=== PATIENT | male | born 1950 | race Caucasian/White ===

== ENCOUNTER 2018-03-05 01:00 | Inpatient (IN) ==
[2018-03-05 01:51] LABS: Basophils # 0.1 K/mm3 (0-0.2); Basophils % 1.1 % (0.1-2.0); Eosinophils # 0.1 K/mm3 (0.0-0.4); Eosinophils % 1.7 % (0.1-12.0); Hematocrit 51.8 % (42.0-52.0); Lymphocytes # 0.9 K/mm3 (0.7-4.5); Lymphocytes % 11.8 K/mm3 (10-50); Mean Corpuscular HGB Conc 32.9 g/dL (31.8-35.4); Mean Corpuscular Hemoglobin 31.3 pg (27.0-31.2); Mean Corpuscular Volume 95.1 fl (80-94); Mean Platelet Volume 10.7 fl (7.4-10.4); Monocytes # 0.7 K/mm3 (0.1-1.0); Neutrophils # 5.6 K/mm3 (1.8-7.8); Neutrophils % 76.5 % (37.0-80.0); Platelet Count 194 K/mm3 (142-424); Red Blood Count 5.44 M/mm3 (4.60-6.20); Red Cell Distribution Width 13.2 % (11.5-17.5); White Blood Count 7.3 K/mm3 (4.8-10.8)
[2018-03-05 02:50] LABS: Albumin Level 3.6 gm/dL (3.4-5.0); Albumin/Globulin Ratio 0.9 (1.1-1.8); Anion Gap 13.9 mEq/L (5-15); Bilirubin,Total 0.4 mg/dL (0.2-1.0); Calcium 9.2 mg/dL (8.5-10.1); Globulin 3.8 gm/dl (1.3-3.2); Potassium 3.9 mmoL/L (3.5-5.1); Total Protein,Serum 7.4 gm/dL (6.4-8.2)
--- NOTE | 2018-03-05 03:49 | Emergency Department Note ---
ED Disposition Clinical Impression: Acute exacerbation of chronic obstructive airways disease, Elevated troponin Community acquired pneumonia Qualifiers: Laterality: right Lung location: unspecified part of lung Qualified Code(s): J18.9 - Pneumonia, unspecified organism Disposition: Admitted As Inpatient Condition on Discharge: Good - Critical Care Critical Care Time: No Attestation: On 03/05/18, the high probability of a clinically significant, sudden or life threatening deterioration of the following system(s) required my full and direct attention, intervention and personal management. The time I documented below is in addition to time spent performing reported procedures but includes the following listed in this critical care notation. Medical Decision Making - Medical Records Medical records reviewed: Yes: I reviewed the patient's medical records. - Gigi Inquiry Pt receiving controlled substance: No Vital Signs: 03/05/18 01:06 03/05/18 02:16 Temperature 99.2 F Temperature Source Oral Pulse Rate [Right Radial] 115 H 115 H Respiratory Rate 20 24 Blood Pressure [Right Arm] 179/95 152/90 Blood Pressure Mean [Right Arm] 123 110 Blood Pressure Source [Right Arm] Manual Cuff/ Palpation Automatic Cuff Blood Pressure Position [Right Arm] Supine Sitting 02 Sat by Pulse Oximetry 89 L 91 L Oxygen Delivery Method Room Air Nasal Cannula Oxygen Flow Rate (LPM) 2 - Lab Data Lab results reviewed: Yes: I reviewed the patient's lab results. Lab Results 03/05/18 01:28: WBC 7.3, RBC 5.44, Hgb 17.0, Hct 51.8, MCV 95.1 H, MCH 31.3 H, MCHC 32.9, RDW 13.2, Plt Count 194, MPV 10.7 H, Neut % (Auto) 76.5, Lymph % ( Auto) 11.8, [place] % (Auto) 9.0, Eos % (Auto) 1.7, Baso % (Auto) 1.1, Neut # (Auto ) 5.6, Lymph # (Auto) 0.9, [place] # (Auto) 0.7, Eos # (Auto) 0.1, Baso # (Auto) 0.1 03/05/18 01:28: Sodium 135 L, Potassium 3.9, Chloride 100, Carbon Dioxide 25, Anion Gap 13.9, BUN 12, Creatinine 0.99, Estimated Creat Clear 92, Estimated GFR 75, Est GFR ( Amer) 91, Glucose 202 H, Calcium 9.2, Total Bilirubin 0.4, AST 17, ALT 27, Alkaline Phosphatase 91, Total Creatine Kinase 257, CK-MB ( CK-2) 3.2, CK-MB (CK-2) Rel Index 1.2, Troponin I 0.15 H, Total Protein 7.4, Albumin 3.6, Globulin 3.8 H, Albumin/Globulin Ratio 0.9 L, Amylase 36, Lipase 137 03/05/18 01:28: Lactic Acid 1.2 03/05/18 01:28: Influenza Type A Ag Negative, Influenza Type B Ag Negative Result diagrams: 03/05/18 01:28 03/05/18 01:28 Orders (Tests/Meds): ED MEDICATIONS Generic Name Dose Route Start Last Admin Trade Name Freq PRN Reason Stop Dose Admin Nitroglycerin 0.4 mg 03/05/18 01:43 03/05/18 01:44 Nitrostat 0.4mg Sl Tablet SL 04/04/18 01:42 0.4 mg [id number] PRN Administration Chest Pain Discontinued Medications Generic Name Dose Route Start Last Admin Trade Name Freq PRN Reason Stop Dose Admin Albuterol/Ipratropium 3 ml 03/05/18 01:17 03/05/18 01:32 Duoneb 3ml Neb IH 03/05/18 01:18 3 ml ONCE ONE Administration Aspirin 324 mg 03/05/18 01:43 03/05/18 01:44 Aspirin 81mg Chewable Tablet PO 03/05/18 01:44 324 mg ONCE ONE Administration Methylprednisolone Sodium Succinate 125 mg 03/05/18 01:17 03/05/18 01:32 Solu-Medrol 125mg/2ml Vial IV 03/05/18 01:18 125 mg ONCE ONE Administration ORDERS Category Date Time Status XR chest portable Stat Exams 03/05/18 01:17 Taken BNP [B-Type Natriuretic Peptide] Stat Lab 03/05/18 03:28 Ordered Blood Culture Stat Micro 03/05/18 01:28 Received Sputum Culture & Gram Stain Stat Micro 03/05/18 01:35 Ordered - Radiology Data #1 Image(s): Chest Image Reviewed: Yes I reviewed the patient's radiology image Preliminary Findings: Abnormal - ECG Data Tracing #1 I reviewed this ECG and interpreted as documented below: Normal Sinus Rhythm: Yes Ischemic changes: non-specific ST-T wave changes - Physician Consults Physician Consulted: salvatore Reason -: Admission Resp/SOB HPI - General Chief Complaint: Shortness of Breath/Dyspnea Stated Complaint: difficulty breathing,cough Time Seen by Provider: 03/05/18 03:32 Mode of Arrival: Ambulatory Source of Information: Patient, Relative, Medical Record Limitations: No Limitations Description of Symptoms (Recalled from ER Triage Doc. by RN): reports 2 days of cough and difficulty breathing, took 2 benadryl prior to comming - History of Present Illness pt with sob with prod cough and congestion with tob use and has hx of cad, s/p cabg MD Complaint: shortness of breath, cough Onset (ago): hour(s) Context: recent illness Severity: moderate Consistency/Duration: intermittent Relieving factors: oxygen Known history of: COPD, diabetes - Related Data Home oxygen amount: none Home Medications Medication Instructions Recorded Confirmed Doxazosin Mesylate [Doxazosin 2mg 2 mg PO DAILY 03/05/18 03/05/18 Tab] Glimepiride [Amaryl] 6 mg PO DAILY 03/05/18 03/05/18 Ipratropium/Albuterol Sulfate 3 ml IH NEEDED PRN 03/05/18 03/05/18 [Duoneb 3mL neb] Lisinopril [Lisinopril 40mg Tablet] 40 mg PO DAILY 03/05/18 03/05/18 Metoprolol Tartrate [Lopressor 25 mg PO BID 03/05/18 03/05/18 25mg tablet] Pravastatin Sodium [Pravachol 40mg 40 mg PO DAILY 03/05/18 03/05/18 Tablet] Allergies Allergy/AdvReac Type Severity Reaction Status Date / Time No Known Allergies Allergy Unverified 11/04/17 15:31 [facility] History I have reviewed the patient's past medical history: Yes Medical History: Reports:: Diabetes Mellitus Type 2 Denies:: Cancer, Diabetes Mellitus Type 1, MRSA Amputation: No Fractures: No - Social History Smoking Status: Current every day smoker Alcohol Intake: current Alcohol Intake Frequency:: a few times a month - Psychiatric History Expresses thoughts of harming self/others: None Suicide Plan Description: No Plan ROS Obtained: Yes All systems reviewed & no additional complaints - Constitutional Constitutional: Denies fever(s) - Eyes Eyes: Denies change in vision - ENT Ears, Nose, Mouth, and Throat: Denies sore throat - Cardiovascular Cardiovascular: Denies chest pain at rest - Respiratory Respiratory: Yes cough, Yes dyspnea - Gastrointestinal Gastrointestingal: Denies: abdominal pain - Genitourinary Female Genitourinary: Denies flank pain - Musculoskeletal Musculoskeletal: Denies joint pain, Denies joint swelling - Integumentary/Breasts Skin/Breast: Denies rash - Neurologic Neurologic: Denies seizure-like activity Physical Exam - General General appearance: in no apparent distress - Head Head exam: normocephalic - Eye Eye exam: Present: PERRL, EOMI - ENT ENT exam: Present: mucous membranes dry - Neck Neck exam: Present: trachea midline - Respiratory Respiratory exam: Present: other (bronchial ). Absent: respiratory distress - Cardiovascular Cardiovascular exam: Present: regular rate, systolic murmur, +S4 - Abdominal Exam Abdominal exam: Present: soft - Extremities Exam Extremities exam: Absent: calf tenderness - Neurological Exam Neurological exam: Present: alert, oriented X3, CN II-XII intact - Psychiatric Psychiatric exam: Present: normal affect - Skin Skin exam: Absent: rash
[2018-03-05 06:36] LABS: Chol/HDL Ratio 4.6 (1-3.5)
--- NOTE | 2018-03-05 07:53 | Pharmacy Consult Notes ---
[facility] Pharmacy VTE Monitoring - Patient Demographics Admission date: 03/05/18 Report Date: 03/05/18 Time: 07:53 Allergies/Adverse Reactions: Patient Allergies No Known Allergies Allergy (Unverified 11/04/17 15:31) Height: 1.52 m Weight: 90.718 kg Patient Problems: Current Active Problems Community acquired pneumonia (Acute) Acute exacerbation of chronic obstructive airways disease (Acute) Elevated troponin (Acute) - VTE Risk Labs: VTE Related Lab Results Hgb 17.0 g/dL (14.1-18.0) 03/05/18 01:28 Hct 51.8 % (42.0-52.0) 03/05/18 01:28 Plt Count 194 K/mm3 (142-424) 03/05/18 01:28 BUN 12 mg/dL (7-18) 03/05/18 01:28 Creatinine 0.99 mg/dL (0.70-1.30) 03/05/18 01:28 Estimated Creat Clear 92 mL/min (0-300) 03/05/18 01:28 VTE Score: 6 VTE Risk Level: Moderate Risk - Prophylaxis VTE Prophylaxis Ordered?: Yes Types of VTE Prophylaxis: TEDS Knee High Location of Applied Device: Bilateral Lower Extremeties - VTE Diagnosis Confirmed Treatment or plan recommended: Continue Current Treatment
--- NOTE | 2018-03-05 08:29 | History & Physical Report ---
*Admission Date: 03/05/18 <Silvana Meredith 03/05/18 08:43> *Chief complaint: SOA, cough <Silvana Meredith 03/05/18 08:43> *History of present illness: Mr. Umaña is a 67-year-old male with a history of hypertension, hyperlipidemia, ASCVD, diabetes, and COPD. He states approximately 2 days ago he began getting short of breath. He has had a productive cough as well as a sore throat and nasal congestion. He states yesterday he became so short of air he presented to the emergency room. He was evaluated and found to have a right-sided pneumonia. He was admitted for antibiotic treatment. His troponin has been elevated as well. He denies any chest pain. <Silvana Meredith 03/05/18 08:43> [facility] History Medical History: Reports:: BPH, Chronic Obstructive Pulmonary Disease (COPD), Coronary Artery Disease, Diabetes Mellitus Type 2, Hyperlipidemia, Hypertension , Myocardial Infarction Denies:: Cancer, Diabetes Mellitus Type 1, Internal Pacemaker, MRSA <Silvana Meredith 03/05/18 08:43> Other Surgeries: Yes: CABG (2005). No: Pacemaker <Silvana Meredith 03/05/18 08 :43> Amputation: No <Silvana Meredith 03/05/18 08:43> Fractures: No <Silvana Meredith 03/05/18 08:43> - *Social History Educational Level: Completed GED/General Educational Development <Silvana Meredith 03/05/18 08:43> Smoking Status: Current every day smoker <Silvana Meredith 03/05/18 08:43> Tobacco Type: cigarettes <Silvana Meredith 03/05/18 08:43> # Packs/Day (cigarettes): 1 <Silvana Meredith 03/05/18 08:43> #Yrs smoked (if former smoker): 56 <Silvana Meredith 03/05/18 08:43> Alcohol Intake: never <Silvana Meredith 03/05/18 08:43> Alcohol Intake Frequency:: a few times a month <Silvana Meredith 03/05/18 08:43 > Occupational Status: retired <Silvana Meredith - 04/19/18 08:43> Housing: house <ViriSilvana Nicolás 03/05/18 08:43> Household Members: spouse <SaelittleSilvana 03/05/18 08:43> - Psychiatric History Expresses thoughts of harming self/others: None <Silvana Meredith 03/05/18 08: 43> Suicide Plan Description: No Plan <Silvana Meredith 03/05/18 08:43> *Family Hx:: Cancer, Coronary Artery Disease, Diabetes, Heart Attack, Hyperlipidemia, Hypertension <Silvana Meredith 03/05/18 08:43> Review of Systems - Constitutional Reports weakness, Denies fever(s) <Silvana Meredith 03/05/18 08:43> - Eyes Denies blurry vision, Denies double vision <Silvana Meredith 03/05/18 08:43> - ENT Reports nasal congestion, Reports sore throat <Silvana Meredith 03/05/18 08:43> - *Cardiovascular Reports fast heart rate, Denies chest pain <Silvana Meredith 03/05/18 08:43> - *Respiratory Reports chest congestion, Reports cough, Reports shortness of breath <Silvana Meredith 03/05/18 08:43> - *Gastrointestinal Denies abdominal pain, Denies loose stools, Denies nausea, Denies vomiting < Silvana Meredith 03/05/18 08:43> - *Genitourinary Denies difficulty urinating, Denies painful urination <Silvana Meredith 08:43> - *Musculoskeletal Denies joint pain <Silvana Meredith 03/05/18 08:43> - *Neurologic Denies headache(s), Denies seizure-like activity, Denies dizziness <Silvana Meredith 03/05/18 08:43> Meds Home Medications Medication Instructions Recorded Confirmed Type Aspirin [Aspir-Low] 81 mg PO DAILY 03/05/18 03/05/18 History Doxazosin Mesylate [Doxazosin 2mg 2 mg PO DAILY 03/05/18 03/05/18 History Tab] Glimepiride [Amaryl] 6 mg PO DAILY 03/05/18 03/05/18 History Ipratropium/Albuterol Sulfate 3 ml IH NEEDED PRN 03/05/18 03/05/18 History [Duoneb 3mL neb] Lisinopril [Lisinopril 40mg Tablet] 40 mg PO DAILY 03/05/18 03/05/18 History Metoprolol Tartrate [Lopressor 25 mg PO BID 03/05/18 03/05/18 History 25mg tablet] Niacin 1,000 mg PO HS 03/05/18 03/05/18 History Pravastatin Sodium [Pravachol 40mg 40 mg PO DAILY 03/05/18 03/05/18 History Tablet] <Good Garcia - 03/05/18 09:09> Allergies Allergy/AdvReac Type Severity Reaction Status Date / Time No Known Allergies Allergy Unverified 11/04/17 15:31 <Good Garcia - 03/05/18 09:09> Exam Vital signs and Labs for Last 24 Hours: Temp Pulse Resp BP Pulse Ox 97.8 F 106 H 24 166/94 91 L 03/05/18 08:00 03/05/18 08:06 03/05/18 08:00 03/05/18 08:00 03/05/18 08:06 Laboratory Results - last 24 hr 03/05/18 05:25: POC Glucose 299 H 03/05/18 06:12: Troponin I 0.15 H 03/05/18 06:12: Magnesium 1.9, Triglycerides 65, Cholesterol 142, LDL Cholesterol 98, VLDL Cholesterol 13, HDL Cholesterol 31, Cholesterol/HDL Ratio 4.6 H <Good Garcia - 03/05/18 09:09> Temp Pulse Resp BP Pulse Ox 97.8 F 106 H 24 166/94 91 L 03/05/18 08:00 03/05/18 08:06 03/05/18 08:00 03/05/18 08:00 03/05/18 08:06 Laboratory Results - last 24 hr Lab Results 03/05/18 01:28: WBC 7.3, RBC 5.44, Hgb 17.0, Hct 51.8, MCV 95.1 H, MCH 31.3 H, MCHC 32.9, RDW 13.2, Plt Count 194, MPV 10.7 H, Neut % (Auto) 76.5, Lymph % ( Auto) 11.8, [place] % (Auto) 9.0, Eos % (Auto) 1.7, Baso % (Auto) 1.1, Neut # (Auto ) 5.6, Lymph # (Auto) 0.9, [place] # (Auto) 0.7, Eos # (Auto) 0.1, Baso # (Auto) 0.1 03/05/18 01:28: Sodium 135 L, Potassium 3.9, Chloride 100, Carbon Dioxide 25, Anion Gap 13.9, BUN 12, Creatinine 0.99, Estimated Creat Clear 92, Estimated GFR 75, Est GFR ( Amer) 91, Glucose 202 H, Calcium 9.2, Total Bilirubin 0.4, AST 17, ALT 27, Alkaline Phosphatase 91, Total Creatine Kinase 257, CK-MB ( CK-2) 3.2, CK-MB (CK-2) Rel Index 1.2, Troponin I 0.15 H, Total Protein 7.4, Albumin 3.6, Globulin 3.8 H, Albumin/Globulin Ratio 0.9 L, Amylase 36, Lipase 137 03/05/18 01:28: Lactic Acid 1.2 03/05/18 01:28: Influenza Type A Ag Negative, Influenza Type B Ag Negative 03/05/18 01:28: B-Natriuretic Peptide 55 03/05/18 04:05: Troponin I 0.15 H 03/05/18 05:25: POC Glucose 299 H 03/05/18 06:12: Troponin I 0.15 H 03/05/18 06:12: Magnesium 1.9, Triglycerides 65, Cholesterol 142, LDL Cholesterol 98, VLDL Cholesterol 13, HDL Cholesterol 31, Cholesterol/HDL Ratio 4.6 H Microbiology Results 03/05/18 03:35 Sputum - Expectorated Sputum Gram Stain - Final 03/05/18 03:35 Sputum - Expectorated Sputum Sputum Culture - Pending 03/05/18 01:28 Blood Blood Culture - Pending 03/05/18 01:28 Blood Blood Culture - Pending <Silvana Meredith - 03/05/18 08:43> I & O for Last 24 hours: Intake & Output 03/02/18 03/03/18 03/04/18 03/05/18 11:59 11:59 11:59 11:59 Weight 200 lb <Good Garcia - 03/05/18 09:09> Intake & Output 04/03/03/18 03/04/18 03/05/18 11:59 11:59 11:59 11:59 Weight 200 lb <Silvana Meredith 03/05/18 08:43> - Constitutional Comments: Does not appear to feel well <Silvana Meredith 03/05/18 08:43> - *Routine HEENT Exam Head: Present: normocephalic, atraumatic <Silvana Meredith 03/05/18 08:43> Eye: Present: EOMI, PERRL <Silvana Meredith 03/05/18 08:43> ENT: Present: mucous membranes dry <Silvana Meredith 03/05/18 08:43> - *Routine Neck Exam Present: supple, full ROM <Silvana Meredith 03/05/18 08:43> - *Routine Respiratory Exam Present: decreased breath sounds, wheezes (bilateral). Absent: crackles < Silvana Meredith 03/05/18 08:43> - *Routine Cardiovascular Exam Present: RRR, tachycardia <Silvana Meredith 03/05/18 08:43> - *Routine Abdominal Exam Present: soft, normoactive bowel sounds. Absent: tenderness <Silvana Meredith 03/05/18 08:43> - *Routine Extremities Exam Absent: edema <Silvana Meredith 03/05/18 08:43> - *Routine Skin Exam Present: intact <ViriSilvana 03/05/18 08:43> - *Routine Neurological Exam Present: alert, oriented X3 <Silvana Meredith 03/05/18 08:43> H&P: Result - Labs Labs: Cardiac Enzymes 03/05/18 Range/Units 06:12 Troponin I 0.15 H (0.00-0.06) ng/ml <Good Garcia 03/05/18 09:09> <Silvana Meredith 03/05/18 08:43> - Impressions CXR - Pneumonia in the right perihilar region with persistent pneumonia and/or postinflammatory change in the right lower lobe. <Silvana Meredith 03/05/18 08:43> Assessment and Plan (1) Community acquired pneumonia Current visit: Yes Status: Acute Qualifiers: Laterality: right Lung location: unspecified part of lung Qualified Code( s): J18.9 - Pneumonia, unspecified organism Category: Medical Code(s): J18.9 - Pneumonia, unspecified organism (2) Elevated troponin Current visit: Yes Status: Acute Category: Medical Code(s): R74.8 - Abnormal levels of other serum enzymes (3) ASCVD (arteriosclerotic cardiovascular disease) Current visit: Yes Status: Chronic Category: Medical Code(s): I25.10 - Atherosclerotic heart disease of [place] coronary artery without angina pectoris (4) Hypertension Current visit: Yes Status: Chronic Category: Medical Code(s): I10 - Essential (primary) hypertension (5) Hyperlipidemia Current visit: Yes Status: Chronic Category: Medical Code(s): E78.5 - Hyperlipidemia, unspecified (6) COPD (chronic obstructive pulmonary disease) Current visit: Yes Status: Chronic Category: Medical Code(s): J44.9 - Chronic obstructive pulmonary disease, unspecified (7) Type 2 diabetes mellitus Current visit: Yes Status: Chronic Category: Medical Code(s): E11.9 - Type 2 diabetes mellitus without complications <Good Garcia - 03/05/18 09:09> (1) Community acquired pneumonia Current visit: Yes Status: Acute Qualifiers: Laterality: right Lung location: unspecified part of lung Qualified Code( s): J18.9 - Pneumonia, unspecified organism Category: Medical Code(s): J18.9 - Pneumonia, unspecified organism (2) Elevated troponin Current visit: Yes Status: Acute Category: Medical Code(s): R74.8 - Abnormal levels of other serum enzymes (3) ASCVD (arteriosclerotic cardiovascular disease) Current visit: Yes Status: Chronic Category: Medical Code(s): I25.10 - Atherosclerotic heart disease of [place] coronary artery without angina pectoris (4) Hypertension Current visit: Yes Status: Chronic Category: Medical Code(s): I10 - Essential (primary) hypertension (5) Hyperlipidemia Current visit: Yes Status: Chronic Category: Medical Code(s): E78.5 - Hyperlipidemia, unspecified (6) COPD (chronic obstructive pulmonary disease) Current visit: Yes Status: Chronic Category: Medical Code(s): J44.9 - Chronic obstructive pulmonary disease, unspecified (7) Type 2 diabetes mellitus Current visit: Yes Status: Chronic Category: Medical Code(s): E11.9 - Type 2 diabetes mellitus without complications <Silvana Meredith - 03/05/18 08:26> - Assessment and plan all Dx Assessment and Plan for all problems:: Saw patient, agree with above note. Will review echo before consulting cardiology. <Good Garcia - 03/05/18 09:09> Patient has been started on IV antibiotics, duo nebs, and steroids. Cardiology has been consulted for his elevated troponin. Will get an echo today. <Silvana Meredith - 03/05/18 08:43>
--- NOTE | 2018-03-05 10:40 | Cardiology Report ---
[place] echo doppler complete PROCEDURE: INDICATIONS FOR THE TEST: Chest pain COPD+ Heart Murmur Tobacco Smoking+ Palpitations Fatigue Syncope Edema Hypertension Diabetes Mellitus+ Rheumatic Fever SOB+BLAIR Obesity Hyperlipidemia Family History HD Additional History CABG, CAD PATIENT INFORMATION HEIGHT: 63 WEIGHT:206 GENDER: Male B/P:152/90 2-D/M-MODE INTERPRETATION: 2-D MEASUREMENTS OBSERVED VALUES IN CMS Right Ventricular Dimension (RVDd) 2.9 Interventricular Septum (Thickness)(IVsd) 1.6 Left Ventricular Internal Dimensions(LVIDd) 4.7 Left Ventricular Posterior Wall (Thickness)(LVPWd) 1.2 Aortic Root 3.3 Aortic Cusp Separation 1.9 Left Atrial Dimensions (LAD) 3.9 2D 1. Left atrium is mildly enlarged, left ventricle is normal size, there is mild concentric left ventricular hypertrophy, visually estimated ejection fraction 50% with no obvious regional wall motion abnormality, endocardial surfaces are poorly visualized. 2. The right atrium and right ventricle are mildly enlarged with normal contractility. 3. The aortic valve is minimally thickened and fibrosed, leaflet continue to display mobility. 4. The mitral and tricuspid valve are grossly normal. 5. The pulmonic valve is poorly visualized. 6. No significant pericardial effusion noted. DOPPLER INTERROGATION: Doppler interrogation of the aortic, mitral and tricuspid valvular presence of trace aortic, mild mitral and tricuspid regurgitation, calculated right ventricular systolic pressure is approximately 51 mmHg consistent with moderate pulmonary hypertension. Diastolic parameters are inconclusive. CONCLUSION: 1. Mildly enlarged left atrium, normal left ventricular size, mild concentric left ventricular hypertrophy, visually estimated ejection fraction 50% with no obvious regional wall motion abnormality, endocardial surfaces are poorly visualized due to poor acoustic windows. 2. Mildly enlarged right atrium and right ventricle, contractility of the right ventricle is normal. 3. Trace aortic, mild mitral and tricuspid regurgitation, calculated right ventricular systolic pressure is 51 mmHg consistent with moderate pulmonary hypertension. 4. No significant pericardial effusion noted.
[2018-03-06 06:40] LABS: Basophils % 0.1 % (0.1-2.0); Eosinophils % 0.4 % (0.1-12.0); Hematocrit 51.7 % (42.0-52.0); Hemoglobin 16.5 g/dL (14.1-18.0); Lymphocytes # 0.7 K/mm3 (0.7-4.5); Lymphocytes % 6.8 K/mm3 (10-50); Mean Corpuscular HGB Conc 31.8 g/dL (31.8-35.4); Mean Corpuscular Hemoglobin 31.1 pg (27.0-31.2); Mean Corpuscular Volume 97.5 fl (80-94); Mean Platelet Volume 8.8 fl (7.4-10.4); Monocytes # 0.5 K/mm3 (0.1-1.0); Monocytes % 4.4 % (1.7-9.3); Neutrophils # 9.6 K/mm3 (1.8-7.8); Neutrophils % 88.3 % (37.0-80.0); Platelet Count 182 K/mm3 (142-424); Red Cell Distribution Width 13.1 % (11.5-17.5); White Blood Count 10.8 K/mm3 (4.8-10.8)
[2018-03-06 06:57] LABS: Anion Gap 14.4 mEq/L (5-15); Potassium 4.4 mmoL/L (3.5-5.1)
--- NOTE | 2018-03-06 08:28 | Progress Note ---
Internal Medicine - PN: Subj *Date: 03/06/18 *Time: 08:25 Interval history: Patient states he is feeling quite a bit better today. He is able to sit up and eat breakfast. States he is still short of breath and coughing. He denies any pain today. Exam Vital signs and Labs for Last 24 Hours: Temp Pulse Resp BP Pulse Ox 97.5 F L 97 H 18 157/85 91 L 03/06/18 05:18 03/06/18 06:24 03/06/18 05:18 03/06/18 05:18 03/06/18 05:55 Laboratory Results - last 24 hr 03/05/18 11:13: POC Glucose 337 H* 03/05/18 15:49: POC Glucose 283 H 03/05/18 21:30: POC Glucose 348 H* 03/06/18 06:11: POC Glucose 267 H 03/06/18 06:20: WBC 10.8 D, RBC 5.30, Hgb 16.5, Hct 51.7, MCV 97.5 H, MCH 31.1 , MCHC 31.8, RDW 13.1, Plt Count 182, MPV 8.8, Neut % (Auto) 88.3 H, Lymph % ( Auto) 6.8 L, [place] % (Auto) 4.4, Eos % (Auto) 0.4, Baso % (Auto) 0.1, Neut # ( Auto) 9.6 H, Lymph # (Auto) 0.7, [place] # (Auto) 0.5, Eos # (Auto) 0.0, Baso # ( Auto) 0.0 03/06/18 06:20: Sodium 139, Potassium 4.4, Chloride 102, Carbon Dioxide 27, Anion Gap 14.4, BUN 23 H D, Creatinine 0.93, Estimated Creat Clear 89, Estimated GFR 81, Est GFR ( Amer) 97, Glucose 283 H I & O for Last 24 hours: Intake & Output 03/03/18 03/04/18 03/05/18 03/06/18 11:59 11:59 11:59 11:59 Intake Total 2093 / 4 Output Total 400 / 400 1000 / 1000 Balance -400 / -400 1094 / 1094 Weight 200 lb 198 lb Radiology Reports for the Last 24 Hours: Echo 1. Mildly enlarged left atrium, normal left ventricular size, mild concentric left ventricular hypertrophy, visually estimated ejection fraction 50% with no obvious regional wall motion abnormality, endocardial surfaces are poorly visualized due to poor acoustic windows. 2. Mildly enlarged right atrium and right ventricle, contractility of the right ventricle is normal. 3. Trace aortic, mild mitral and tricuspid regurgitation, calculated right ventricular systolic pressure is 51 mmHg consistent with moderate pulmonary hypertension. 4. No significant pericardial effusion noted. - Constitutional no acute distress (looks better and much more alert) - *Routine Respiratory Exam Present: wheezes (bilaterally - improved) - *Routine Cardiovascular Exam Present: RRR - *Routine Abdominal Exam Present: soft, normoactive bowel sounds. Absent: tenderness - *Routine Extremities Exam Absent: edema Assessment and Plan (1) Community acquired pneumonia Current visit: Yes Status: Acute Qualifiers: Laterality: right Lung location: unspecified part of lung Qualified Code( s): J18.9 - Pneumonia, unspecified organism Category: Medical Code(s): J18.9 - Pneumonia, unspecified organism (2) Elevated troponin Current visit: Yes Status: Acute Category: Medical Code(s): R74.8 - Abnormal levels of other serum enzymes (3) ASCVD (arteriosclerotic cardiovascular disease) Current visit: Yes Status: Chronic Category: Medical Code(s): I25.10 - Atherosclerotic heart disease of [place] coronary artery without angina pectoris (4) Hypertension Current visit: Yes Status: Chronic Category: Medical Code(s): I10 - Essential (primary) hypertension (5) Hyperlipidemia Current visit: Yes Status: Chronic Category: Medical Code(s): E78.5 - Hyperlipidemia, unspecified (6) COPD (chronic obstructive pulmonary disease) Current visit: Yes Status: Chronic Category: Medical Code(s): J44.9 - Chronic obstructive pulmonary disease, unspecified (7) Type 2 diabetes mellitus Current visit: Yes Status: Chronic Category: Medical Code(s): E11.9 - Type 2 diabetes mellitus without complications - Assessment and plan all Dx Assessment and Plan for all problems:: Sputum culture is growing gram-negative rods. Will await final sputum culture. See echo report. Cardiology does not feel that they need to consult on the patient at this time.
[2018-03-06 11:27] LABS: Lymphocytes % 8 % (10-50); Monocytes % 9 % (2-9); Neutrophils % 82 % (42-76); Total Cells Counted 100
[2018-03-06 11:31] LABS: RBC Morphology Normal
--- NOTE | 2018-03-07 08:48 | Progress Note ---
Internal Medicine - PN: Subj *Date: 03/07/18 *Time: 08:45 Interval history: Clinically he appears stable. He continues to run low oxygen saturations even on 3 L of nasal oxygen. His sats are 85-90 usually currently he is 91%. Decreased breath sounds bilaterally. He shows no acute distress. He has no leg edema. Exam Vital signs and Labs for Last 24 Hours: Temp Pulse Resp BP Pulse Ox 97.9 F 95 H 22 165/95 92 L 03/07/18 04:00 03/07/18 04:00 03/07/18 04:00 03/07/18 04:00 03/07/18 08:09 Laboratory Results - last 24 hr 03/06/18 06:20: Total Counted 100, Neutrophils % (Manual) 82 H, Lymphocytes % ( Manual) 8 L, Monocytes % (Manual) 9, Metamyelocytes % 1.0, Platelet Estimate Normal, RBC Morphology Normal 03/06/18 11:44: POC Glucose 347 H* 03/06/18 16:58: POC Glucose 323 H* 03/06/18 21:03: POC Glucose 339 H* 03/07/18 06:19: POC Glucose 261 H I & O for Last 24 hours: Intake & Output 03/04/18 03/05/18 03/06/18 03/07/18 11:59 11:59 11:59 11:59 Intake Total 2094 / 2094 1728 / 1728 Output Total 400 / 400 1000 / 1000 2850 / 2850 Balance -400 / -400 1094 / 1094 -1122 / -1122 Weight 200 lb 198 lb 200 lb - Constitutional no acute distress - *Routine HEENT Exam Head: Present: normocephalic Eye: Present: EOMI, PERRL ENT: Present: mucous membranes moist - *Routine Respiratory Exam Present: decreased breath sounds. Absent: wheezes - *Routine Cardiovascular Exam Present: RRR Comments: Blood pressure is good. - *Routine Extremities Exam Absent: edema Assessment and Plan (1) Community acquired pneumonia Current visit: Yes Status: Acute Qualifiers: Laterality: right Lung location: unspecified part of lung Qualified Code( s): J18.9 - Pneumonia, unspecified organism Category: Medical Code(s): J18.9 - Pneumonia, unspecified organism (2) Elevated troponin Current visit: Yes Status: Acute Category: Medical Code(s): R74.8 - Abnormal levels of other serum enzymes (3) ASCVD (arteriosclerotic cardiovascular disease) Current visit: Yes Status: Chronic Category: Medical Code(s): I25.10 - Atherosclerotic heart disease of [place] coronary artery without angina pectoris (4) Hypertension Current visit: Yes Status: Chronic Category: Medical Code(s): I10 - Essential (primary) hypertension (5) Hyperlipidemia Current visit: Yes Status: Chronic Category: Medical Code(s): E78.5 - Hyperlipidemia, unspecified (6) COPD (chronic obstructive pulmonary disease) Current visit: Yes Status: Chronic Category: Medical Code(s): J44.9 - Chronic obstructive pulmonary disease, unspecified (7) Type 2 diabetes mellitus Current visit: Yes Status: Chronic Category: Medical Code(s): E11.9 - Type 2 diabetes mellitus without complications - Assessment and plan all Dx Assessment and Plan for all problems:: Saline lock IV. Repeat chest x-ray. Incentive spirometry. Resume glimepiride. He is on low-dose sliding scale.
--- NOTE | 2018-03-08 10:32 | Progress Note ---
Internal Medicine - PN: Subj *Date: 03/08/18 *Time: 10:30 Interval history: He is much improved. His chest x-ray did not look bad yesterday. He seems fairly stable and ready for discharge in the morning. He will need home oxygen arranged. He does have a nebulizer at home. Exam Vital signs and Labs for Last 24 Hours: Temp Pulse Resp BP Pulse Ox 98.3 F 100 H 22 179/96 92 L 03/08/18 07:40 03/08/18 07:40 03/08/18 07:40 03/08/18 07:40 03/08/18 09:08 Laboratory Results - last 24 hr 03/07/18 10:19: POC Glucose 303 H* 03/07/18 15:51: POC Glucose 256 H 03/07/18 21:11: POC Glucose 272 H 03/08/18 03:07: POC Glucose 271 H 03/08/18 09:02: POC Glucose 345 H* I & O for Last 24 hours: Intake & Output 03/05/18 03/06/18 03/07/18 03/08/18 11:59 11:59 11:59 11:59 Intake Total 2094 / 2094 2088 / 2088 900 / 900 Output Total 400 / 400 1000 / 1000 2850 / 2850 1025 / 1025 Balance -400 / -400 1094 / 1094 -762 / -762 -125 / -125 Weight 200 lb 198 lb 200 lb 198 lb - Constitutional no acute distress - *Routine Respiratory Exam Present: decreased breath sounds. Absent: wheezes - *Routine Cardiovascular Exam Present: RRR - *Routine Extremities Exam Present: edema (Trace) Assessment and Plan (1) Community acquired pneumonia Current visit: Yes Status: Acute Qualifiers: Laterality: right Lung location: unspecified part of lung Qualified Code( s): J18.9 - Pneumonia, unspecified organism Category: Medical Code(s): J18.9 - Pneumonia, unspecified organism (2) Elevated troponin Current visit: Yes Status: Acute Category: Medical Code(s): R74.8 - Abnormal levels of other serum enzymes (3) ASCVD (arteriosclerotic cardiovascular disease) Current visit: Yes Status: Chronic Category: Medical Code(s): I25.10 - Atherosclerotic heart disease of [place] coronary artery without angina pectoris (4) Hypertension Current visit: Yes Status: Chronic Category: Medical Code(s): I10 - Essential (primary) hypertension (5) Hyperlipidemia Current visit: Yes Status: Chronic Category: Medical Code(s): E78.5 - Hyperlipidemia, unspecified (6) COPD (chronic obstructive pulmonary disease) Current visit: Yes Status: Chronic Category: Medical Code(s): J44.9 - Chronic obstructive pulmonary disease, unspecified (7) Type 2 diabetes mellitus Current visit: Yes Status: Chronic Category: Medical Code(s): E11.9 - Type 2 diabetes mellitus without complications - Assessment and plan all Dx Assessment and Plan for all problems:: CBC and BMP ordered
[2018-03-08 11:06] LABS: Basophils % 0.3 % (0.1-2.0); Eosinophils # 0.1 K/mm3 (0.0-0.4); Eosinophils % 0.5 % (0.1-12.0); Hematocrit 52.4 % (42.0-52.0); Hemoglobin 16.5 g/dL (14.1-18.0); Lymphocytes # 0.7 K/mm3 (0.7-4.5); Lymphocytes % 6.1 K/mm3 (10-50); Mean Corpuscular HGB Conc 31.5 g/dL (31.8-35.4); Mean Corpuscular Hemoglobin 31.2 pg (27.0-31.2); Mean Platelet Volume 8.9 fl (7.4-10.4); Monocytes # 0.6 K/mm3 (0.1-1.0); Neutrophils # 10.1 K/mm3 (1.8-7.8); Neutrophils % 88.1 % (37.0-80.0); Platelet Count 207 K/mm3 (142-424); Red Blood Count 5.29 M/mm3 (4.60-6.20); Red Cell Distribution Width 13.2 % (11.5-17.5); White Blood Count 11.4 K/mm3 (4.8-10.8)
[2018-03-08 11:11] LABS: Anion Gap 8.8 mEq/L (5-15); Potassium 4.8 mmoL/L (3.5-5.1)
[2018-03-08 11:34] LABS: Lymphocytes % 6 % (10-50); Monocytes % 6 % (2-9); Neutrophils % 87 % (42-76); RBC Morphology Normal; Total Cells Counted 100
--- NOTE | 2018-03-08 14:25 | Progress Note ---
Internal Medicine - PN: Subj *Date: 03/08/18 *Time: 14:22 Interval history: The patient developed sudden onset of left chest pain while he was sitting up in a chair this afternoon. He said the pain was 7 out of 10. Blood pressure has been running high this afternoon. He received 2 mg of morphine IV and Nitrol paste 1 inch was applied. He is now relieved of pain. His monitor seems to be very stable and his EKG does not show any acute change. Cardiac enzymes are drawn and pending. Does have some leg edema which was noticed this morning on rounds as well. His weight seems stable as recorded however. I will still give him some Lasix IV 20 mg. Exam Vital signs and Labs for Last 24 Hours: Temp Pulse Resp BP Pulse Ox 98.3 F 89 22 179/96 92 L 03/08/18 07:40 03/08/18 12:27 03/08/18 07:40 03/08/18 07:40 03/08/18 09:08 Laboratory Results - last 24 hr 03/07/18 15:51: POC Glucose 256 H 03/07/18 21:11: POC Glucose 272 H 03/08/18 03:07: POC Glucose 271 H 03/08/18 09:02: POC Glucose 345 H* 03/08/18 11:00: WBC 11.4 H, RBC 5.29, Hgb 16.5, Hct 52.4 H, MCV 99.0 H, MCH 31.2 , MCHC 31.5 L, RDW 13.2, Plt Count 207, MPV 8.9, Neut % (Auto) 88.1 H, Lymph % ( Auto) 6.1 L, [place] % (Auto) 5.0, Eos % (Auto) 0.5, Baso % (Auto) 0.3, Neut # ( Auto) 10.1 H, Lymph # (Auto) 0.7, [place] # (Auto) 0.6, Eos # (Auto) 0.1, Baso # ( Auto) 0.0, Total Counted 100, Neutrophils % (Manual) 87 H, Band Neutrophils % 1.0, Lymphocytes % (Manual) 6 L, Monocytes % (Manual) 6, Platelet Estimate Normal, RBC Morphology Normal 03/08/18 11:00: Sodium 141, Potassium 4.8, Chloride 103, Carbon Dioxide 34 H D, Anion Gap 8.8, BUN 26 H, Creatinine 0.87, Estimated Creat Clear 89, Estimated GFR 87, Est GFR ( Amer) 105, Glucose 328 H I & O for Last 24 hours: Intake & Output 03/06/18 03/07/18 03/08/18 03/09/18 11:59 11:59 11:59 11:59 Intake Total 2094 / 2094 2088 / 2088 900 / 900 Output Total 1000 / 1000 2850 / 2850 1025 / 1025 Balance 1094 / 1094 -762 / -762 -125 / -125 Weight 198 lb 200 lb 198 lb - *Routine Respiratory Exam Present: decreased breath sounds. Absent: wheezes, crackles - *Routine Cardiovascular Exam Present: RRR Comments: No ectopics or dysrhythmia noted on monitor. - *Routine Extremities Exam Comments: 1-2+ leg edema is present. Assessment and Plan (1) Community acquired pneumonia Current visit: Yes Status: Acute Qualifiers: Laterality: right Lung location: unspecified part of lung Qualified Code( s): J18.9 - Pneumonia, unspecified organism Category: Medical Code(s): J18.9 - Pneumonia, unspecified organism (2) Elevated troponin Current visit: Yes Status: Acute Category: Medical Code(s): R74.8 - Abnormal levels of other serum enzymes (3) ASCVD (arteriosclerotic cardiovascular disease) Current visit: Yes Status: Chronic Category: Medical Code(s): I25.10 - Atherosclerotic heart disease of [place] coronary artery without angina pectoris (4) Hypertension Current visit: Yes Status: Chronic Category: Medical Code(s): I10 - Essential (primary) hypertension (5) Hyperlipidemia Current visit: Yes Status: Chronic Category: Medical Code(s): E78.5 - Hyperlipidemia, unspecified (6) COPD (chronic obstructive pulmonary disease) Current visit: Yes Status: Chronic Category: Medical Code(s): J44.9 - Chronic obstructive pulmonary disease, unspecified (7) Type 2 diabetes mellitus Current visit: Yes Status: Chronic Category: Medical Code(s): E11.9 - Type 2 diabetes mellitus without complications (8) Chest pain Current visit: Yes Status: Acute Category: Medical Code(s): R07.9 - Chest pain, unspecified - Assessment and plan all Dx Assessment and Plan for all problems:: As described above. Nitroglycerin paste will be continued. Morphine is ordered as needed for chest pain.
--- NOTE | 2018-03-08 15:54 | Progress Note ---
Internal Medicine - PN: Subj *Date: 03/08/18 *Time: 15:54 Exam Vital signs and Labs for Last 24 Hours: Temp Pulse Resp BP Pulse Ox 98.1 F 97 H 22 179/97 95 03/08/18 15:44 03/08/18 15:44 03/08/18 15:44 03/08/18 15:44 03/08/18 15:44 Laboratory Results - last 24 hr 03/07/18 15:51: POC Glucose 256 H 03/07/18 21:11: POC Glucose 272 H 03/08/18 03:07: POC Glucose 271 H 03/08/18 09:02: POC Glucose 345 H* 03/08/18 11:00: WBC 11.4 H, RBC 5.29, Hgb 16.5, Hct 52.4 H, MCV 99.0 H, MCH 31.2 , MCHC 31.5 L, RDW 13.2, Plt Count 207, MPV 8.9, Neut % (Auto) 88.1 H, Lymph % ( Auto) 6.1 L, [place] % (Auto) 5.0, Eos % (Auto) 0.5, Baso % (Auto) 0.3, Neut # ( Auto) 10.1 H, Lymph # (Auto) 0.7, [place] # (Auto) 0.6, Eos # (Auto) 0.1, Baso # ( Auto) 0.0, Total Counted 100, Neutrophils % (Manual) 87 H, Band Neutrophils % 1.0, Lymphocytes % (Manual) 6 L, Monocytes % (Manual) 6, Platelet Estimate Normal, RBC Morphology Normal 03/08/18 11:00: Sodium 141, Potassium 4.8, Chloride 103, Carbon Dioxide 34 H D, Anion Gap 8.8, BUN 26 H, Creatinine 0.87, Estimated Creat Clear 89, Estimated GFR 87, Est GFR ( Amer) 105, Glucose 328 H 03/08/18 14:01: Total Creatine Kinase 201, CK-MB (CK-2) 6.0 H D, CK-MB (CK-2) Rel Index 3.0, Troponin I 0.08 H I & O for Last 24 hours: Intake & Output 03/05/18 03/06/18 03/07/18 03/08/18 23:59 23:59 23:59 23:59 Intake Total 1244 / 1244 2578 / 2578 960 / 960 300 / 300 Output Total 1400 / 1400 1650 / 1650 1900 / 1900 325 / 325 Balance -156 / -156 928 / 928 -940 / -940 -25 / -25 Weight 90.718 kg 89.811 kg 90.718 kg 89.811 kg Assessment and Plan (1) Community acquired pneumonia Current visit: Yes Status: Acute Qualifiers: Laterality: right Lung location: unspecified part of lung Qualified Code( s): J18.9 - Pneumonia, unspecified organism Category: Medical Code(s): J18.9 - Pneumonia, unspecified organism (2) Elevated troponin Current visit: Yes Status: Acute Category: Medical Code(s): R74.8 - Abnormal levels of other serum enzymes (3) ASCVD (arteriosclerotic cardiovascular disease) Current visit: Yes Status: Chronic Category: Medical Code(s): I25.10 - Atherosclerotic heart disease of [place] coronary artery without angina pectoris (4) Hypertension Current visit: Yes Status: Chronic Category: Medical Code(s): I10 - Essential (primary) hypertension (5) Hyperlipidemia Current visit: Yes Status: Chronic Category: Medical Code(s): E78.5 - Hyperlipidemia, unspecified (6) COPD (chronic obstructive pulmonary disease) Current visit: Yes Status: Chronic Category: Medical Code(s): J44.9 - Chronic obstructive pulmonary disease, unspecified (7) Type 2 diabetes mellitus Current visit: Yes Status: Chronic Category: Medical Code(s): E11.9 - Type 2 diabetes mellitus without complications (8) Chest pain Current visit: Yes Status: Acute Category: Medical Code(s): R07.9 - Chest pain, unspecified The patient's infection will respond to the chosen ABx?: Yes Is the patient receiving the right drug, dose, and route?: Yes Could a more targeted ABx be ordered?: No
[2018-03-09 06:23] LABS: Anion Gap 9.6 mEq/L (5-15); Potassium 4.6 mmoL/L (3.5-5.1)
--- NOTE | 2018-03-09 08:33 | Progress Note ---
Internal Medicine - PN: Subj *Date: 03/09/18 *Time: 08:30 Interval history: Patient had an episode of chest pain yesterday relieved with morphine and Nitropaste. Dr. Umana saw him after this. Troponin I's have been slightly elevated. Heart rate has shown sinus tachycardia. He was restarted back on his oxygen. This a.m. he feels no different. He has not had any further chest pain. He would like to go home. He is eating as usual. He ambulates in the room. He had a bowel movement yesterday. He is voiding QS. Exam Vital signs and Labs for Last 24 Hours: Temp Pulse Resp BP Pulse Ox 97.7 F 90 24 166/94 92 L 03/09/18 04:00 03/09/18 06:05 03/09/18 04:00 03/09/18 04:00 03/09/18 06:05 Laboratory Results - last 24 hr 03/08/18 09:02: POC Glucose 345 H* 03/08/18 11:00: WBC 11.4 H, RBC 5.29, Hgb 16.5, Hct 52.4 H, MCV 99.0 H, MCH 31.2 , MCHC 31.5 L, RDW 13.2, Plt Count 207, MPV 8.9, Neut % (Auto) 88.1 H, Lymph % ( Auto) 6.1 L, [place] % (Auto) 5.0, Eos % (Auto) 0.5, Baso % (Auto) 0.3, Neut # ( Auto) 10.1 H, Lymph # (Auto) 0.7, [place] # (Auto) 0.6, Eos # (Auto) 0.1, Baso # ( Auto) 0.0, Total Counted 100, Neutrophils % (Manual) 87 H, Band Neutrophils % 1.0, Lymphocytes % (Manual) 6 L, Monocytes % (Manual) 6, Platelet Estimate Normal, RBC Morphology Normal 03/08/18 11:00: Sodium 141, Potassium 4.8, Chloride 103, Carbon Dioxide 34 H D, Anion Gap 8.8, BUN 26 H, Creatinine 0.87, Estimated Creat Clear 89, Estimated GFR 87, Est GFR ( Amer) 105, Glucose 328 H 03/08/18 14:01: Total Creatine Kinase 201, CK-MB (CK-2) 6.0 H D, CK-MB (CK-2) Rel Index 3.0, Troponin I 0.08 H 03/08/18 16:04: POC Glucose 329 H* 03/08/18 21:16: POC Glucose 325 H* 03/09/18 02:05: POC Glucose 278 H 03/09/18 05:40: Sodium 141, Potassium 4.6, Chloride 103, Carbon Dioxide 33 H, Anion Gap 9.6, BUN 27 H, Creatinine 0.90, Estimated Creat Clear 89, Estimated GFR 84, Est GFR ( Amer) 101, Glucose 232 H D, Total Creatine Kinase 155, CK-MB (CK-2) 5.9 H, CK-MB (CK-2) Rel Index 3.8, Troponin I 0.08 H I & O for Last 24 hours: Intake & Output 03/06/18 03/07/18 03/08/18 03/09/18 11:59 11:59 11:59 11:59 Intake Total 2094 / 2094 2088 / 2088 1380 / 1380 1600 / 1600 Output Total 1000 / 1000 2850 / 2850 1325 / 1325 3200 / 3200 Balance 1094 / 1094 -762 / -762 55 / 55 -1600 / -1600 Weight 198 lb 200 lb 198 lb 198 lb Microbiology Reports for the Last 24 Hours: Microbiology 03/05/18 01:28 Blood Blood Culture - Preliminary NO GROWTH AFTER 4 DAYS 03/05/18 01:28 Blood Blood Culture - Preliminary NO GROWTH AFTER 4 DAYS 03/09/2018 sputum culture E. coli sensitive to all antibodies Radiology Reports for the Last 24 Hours: 03/05/2018 echocardiogram CONCLUSION: 1. Mildly enlarged left atrium, normal left ventricular size, mild concentric left ventricular hypertrophy, visually estimated ejection fraction 50% with no obvious regional wall motion abnormality, endocardial surfaces are poorly visualized due to poor acoustic windows. 2. Mildly enlarged right atrium and right ventricle, contractility of the right ventricle is normal. 3. Trace aortic, mild mitral and tricuspid regurgitation, calculated right ventricular systolic pressure is 51 mmHg consistent with moderate pulmonary hypertension. 4. No significant pericardial effusion noted. - Constitutional no acute distress Comments: Sitting on bedside. Has just completed his breakfast. - *Routine Respiratory Exam Present: wheezes Comments: Bilateral wheezing throughout. - *Routine Cardiovascular Exam Present: RRR Comments: Monitor showing sinus tachycardia. - *Routine Abdominal Exam Present: normoactive bowel sounds. Absent: tenderness, distended - *Routine Extremities Exam Present: edema (Trace) - *Routine Neurological Exam Present: alert, oriented X3 Assessment and Plan (1) Community acquired pneumonia Current visit: Yes Status: Acute Qualifiers: Laterality: right Lung location: unspecified part of lung Qualified Code( s): J18.9 - Pneumonia, unspecified organism Category: Medical Code(s): J18.9 - Pneumonia, unspecified organism (2) Elevated troponin Current visit: Yes Status: Acute Category: Medical Code(s): R74.8 - Abnormal levels of other serum enzymes (3) ASCVD (arteriosclerotic cardiovascular disease) Current visit: Yes Status: Chronic Category: Medical Code(s): I25.10 - Atherosclerotic heart disease of [place] coronary artery without angina pectoris (4) Hypertension Current visit: Yes Status: Chronic Category: Medical Code(s): I10 - Essential (primary) hypertension (5) Hyperlipidemia Current visit: Yes Status: Chronic Category: Medical Code(s): E78.5 - Hyperlipidemia, unspecified (6) COPD (chronic obstructive pulmonary disease) Current visit: Yes Status: Chronic Category: Medical Code(s): J44.9 - Chronic obstructive pulmonary disease, unspecified (7) Type 2 diabetes mellitus Current visit: Yes Status: Chronic Category: Medical Code(s): E11.9 - Type 2 diabetes mellitus without complications (8) Chest pain Current visit: Yes Status: Acute Category: Medical Code(s): R07.9 - Chest pain, unspecified - Assessment and plan all Dx Assessment and Plan for all problems:: Cardiology to see patient today.
--- NOTE | 2018-03-09 10:24 | Consult Report ---
History of Present Illness Consult date: 03/09/18 Requesting physician: Elaine Umana Consult reason: chest pain Chief complaint: chest pain Additional Medical History:: 1. Coronary artery disease A. Quadruple bypass approximately 2005, [facility] in [facility] B. No cardiac follow-up in the last 9 years due to loss of insurance 2. Hypertension 3. Hyperlipidemia 4. Habitus mellitus type II 5. Tobacco use of 1.5 packs per day 50 years, discontinued 4 days prior to admission History of present illness: 67-year-old white male with history of coronary artery disease and quadruple bypass surgery approximately 2005 was admitted for increasing shortness of breath. Patient has been diagnosed with pneumonia and is being treated for this. He states his breathing has significantly improved since admission. Yesterday while sitting in bed he developed an episode of chest discomfort left- sided that radiated through to the back and last for a few minutes. Symptoms resolved after combination of morphine and nitroglycerin paste. Troponin I is elevated at 0.082 draws with no acute EKG changes. EKGs and telemetry show sinus rhythm and sinus tachycardia without acute changes. Cardiology consulted for further evaluation. Patient denies any further episodes of chest pain. He is adamant about going home today. [facility] History Medical History: Reports:: BPH, Chronic Obstructive Pulmonary Disease (COPD), Coronary Artery Disease, Diabetes Mellitus Type 2, Hyperlipidemia, Hypertension , Myocardial Infarction Denies:: Cancer, Diabetes Mellitus Type 1, Internal Pacemaker, MRSA Other Surgeries: Yes: CABG (2005). No: Pacemaker Amputation: No Fractures: No - *Social History Educational Level: Completed GED/General Educational Development Smoking Status: Current every day smoker Tobacco Type: cigarettes # Packs/Day (cigarettes): 1 #Yrs smoked (if former smoker): 56 Alcohol Intake: never Alcohol Intake Frequency:: a few times a month Occupational Status: retired Housing: house Household Members: spouse - Psychiatric History Expresses thoughts of harming self/others: None Suicide Plan Description: No Plan *Family Hx:: Cancer, Coronary Artery Disease, Diabetes, Heart Attack, Hyperlipidemia, Hypertension Meds Home Medications Medication Instructions Recorded Confirmed Type Albuterol Sulfate [Proair Hfa 2 puffs IH Q6HP PRN 03/05/18 03/05/18 History 90mcg/puff Inh] Aspirin [Aspir-Low] 81 mg PO DAILY 03/05/18 03/05/18 History Doxazosin Mesylate [Doxazosin 2mg 2 mg PO DAILY 03/05/18 03/05/18 History Tab] Garlic 1,000 mg PO DAILY 03/05/18 03/05/18 History Glimepiride [Amaryl] 6 mg PO DAILY 03/05/18 03/05/18 History Ipratropium/Albuterol Sulfate 3 ml IH Q6HP PRN 03/05/18 03/05/18 History [Duoneb 3mL neb] Lisinopril [Lisinopril 40mg Tablet] 40 mg PO DAILY 03/05/18 03/05/18 History Metoprolol Tartrate [Lopressor 25 mg PO BID 03/05/18 03/05/18 History 25mg tablet] Pravastatin Sodium [Pravachol 40mg 40 mg PO DAILY 03/05/18 03/05/18 History Tablet] Allergies Allergy/AdvReac Type Severity Reaction Status Date / Time No Known Allergies Allergy Verified 03/05/18 11:19 Review of Systems - Constitutional Reports lack of energy - *Cardiovascular Reports chest pain, Reports chest pain at rest, Reports shortness of breath, Reports shortness of breath with activity - *Respiratory Reports shortness of breath, Reports shortness of breath with activity - *Gastrointestinal Denies abdominal pain - *Neurologic Reports weakness, Denies headache(s), Denies seizure-like activity, Denies dizziness Exam Vital signs and Labs for Last 24 Hours: Temp Pulse Resp BP Pulse Ox 97.8 F 91 H 18 151/90 92 L 03/09/18 08:00 03/09/18 08:00 03/09/18 08:00 03/09/18 08:00 03/09/18 08:00 Laboratory Results - last 24 hr 03/08/18 11:00: WBC 11.4 H, RBC 5.29, Hgb 16.5, Hct 52.4 H, MCV 99.0 H, MCH 31.2 , MCHC 31.5 L, RDW 13.2, Plt Count 207, MPV 8.9, Neut % (Auto) 88.1 H, Lymph % ( Auto) 6.1 L, Green % (Auto) 5.0, Eos % (Auto) 0.5, Baso % (Auto) 0.3, Neut # ( Auto) 10.1 H, Lymph # (Auto) 0.7, Green # (Auto) 0.6, Eos # (Auto) 0.1, Baso # ( Auto) 0.0, Total Counted 100, Neutrophils % (Manual) 87 H, Band Neutrophils % 1.0, Lymphocytes % (Manual) 6 L, Monocytes % (Manual) 6, Platelet Estimate Normal, RBC Morphology Normal 03/08/18 11:00: Sodium 141, Potassium 4.8, Chloride 103, Carbon Dioxide 34 H D, Anion Gap 8.8, BUN 26 H, Creatinine 0.87, Estimated Creat Clear 89, Estimated GFR 87, Est GFR ( Amer) 105, Glucose 328 H 03/08/18 14:01: Total Creatine Kinase 201, CK-MB (CK-2) 6.0 H D, CK-MB (CK-2) Rel Index 3.0, Troponin I 0.08 H 03/08/18 16:04: POC Glucose 329 H* 03/08/18 21:16: POC Glucose 325 H* 03/09/18 02:05: POC Glucose 278 H 03/09/18 05:40: Sodium 141, Potassium 4.6, Chloride 103, Carbon Dioxide 33 H, Anion Gap 9.6, BUN 27 H, Creatinine 0.90, Estimated Creat Clear 89, Estimated GFR 84, Est GFR ( Amer) 101, Glucose 232 H D, Total Creatine Kinase 155, CK-MB (CK-2) 5.9 H, CK-MB (CK-2) Rel Index 3.8, Troponin I 0.08 H 03/09/18 09:53: POC Glucose 170 H I & O for Last 24 hours: Intake & Output 03/06/18 03/07/18 03/08/18 03/09/18 11:59 11:59 11:59 11:59 Intake Total 2094 / 2094 2088 / 2088 1380 / 1380 1840 / 1840 Output Total 1000 / 1000 2850 / 2850 1325 / 1325 3200 / 3200 Balance 1094 / 1094 -762 / -762 55 / 55 -1360 / -1360 Weight 198 lb 200 lb 198 lb 198 lb Microbiology Reports for the Last 24 Hours: Microbiology 03/05/18 01:28 Blood Blood Culture - Preliminary NO GROWTH AFTER 4 DAYS 03/05/18 01:28 Blood Blood Culture - Preliminary NO GROWTH AFTER 4 DAYS - *Routine Neck Exam Absent: carotid bruit - *Routine Respiratory Exam Present: decreased breath sounds, wheezes, diminished air movement - *Routine Cardiovascular Exam Present: RRR. Absent: murmur, gallop, rubs - *Routine Abdominal Exam Present: soft. Absent: tenderness - *Routine Extremities Exam Absent: edema - *Routine Neurological Exam Present: alert, oriented X3 Assessment and Plan (1) Community acquired pneumonia Current visit: Yes Status: Acute Qualifiers: Laterality: right Lung location: unspecified part of lung Qualified Code( s): J18.9 - Pneumonia, unspecified organism Category: Medical Code(s): J18.9 - Pneumonia, unspecified organism (2) Elevated troponin Current visit: Yes Status: Acute Category: Medical Code(s): R74.8 - Abnormal levels of other serum enzymes (3) ASCVD (arteriosclerotic cardiovascular disease) Current visit: Yes Status: Chronic Category: Medical Code(s): I25.10 - Atherosclerotic heart disease of [place] coronary artery without angina pectoris (4) Hypertension Current visit: Yes Status: Chronic Category: Medical Code(s): I10 - Essential (primary) hypertension (5) Hyperlipidemia Current visit: Yes Status: Chronic Category: Medical Code(s): E78.5 - Hyperlipidemia, unspecified (6) COPD (chronic obstructive pulmonary disease) Current visit: Yes Status: Chronic Category: Medical Code(s): J44.9 - Chronic obstructive pulmonary disease, unspecified (7) Type 2 diabetes mellitus Current visit: Yes Status: Chronic Category: Medical Code(s): E11.9 - Type 2 diabetes mellitus without complications (8) Chest pain Current visit: Yes Status: Acute Category: Medical Code(s): R07.9 - Chest pain, unspecified - Assessment and plan all Dx Assessment and Plan for all problems:: 1. Elevated troponins in setting of pneumonia and COPD, likely due to right ocular strain pattern. Although with known coronary artery disease and previous bypass surgery cannot rule out recurrent coronary artery disease. Patient was offered left heart catheterization during this hospitalization but he is reluctant to agree to this at this time and states he needs some time to think about it. He is very concerned that he will have to have repeat bypass surgery and is very scared of this possibility. 2. Due to the patient's episode of chest pain and intermittent tachycardia would recommend increasing his metoprolol to 50 mg twice daily. If his wheezing or shortness of breath worsens, consider switching to bisoprolol or carvedilol. 3. Patient's echocardiogram shows an ejection fraction of 50% with no obvious wall motion abnormality. 4. Continue TREY inhibitor therapy along with recent addition of isosorbide. Recommend aspirin 81 mg daily. 5. If patient is insistent upon discharge today would recommend follow-up in 1- 2 weeks. If he agrees to proceed with cardiac catheterization this could be performed tomorrow.
--- NOTE | 2018-03-10 21:22 | Discharge Summary ---
General - General Admission date:: 03/05/18 Discharge date: 03/09/18 HPI HPI: Mr. Umaña is a 67-year-old male with a history of hypertension, hyperlipidemia, ASCVD, diabetes, and COPD. He states approximately 2 days ago he began getting short of breath. He has had a productive cough as well as a sore throat and nasal congestion. He states yesterday he became so short of air he presented to the emergency room. He was evaluated and found to have a right-sided pneumonia. He was admitted for antibiotic treatment. His troponin has been elevated as well. He denies any chest pain. Hospital Course Hospital Course: The patient was started on IV abx, duonebs and steroids. An Echo was ordered showing an EF of 50%. Cardiology was initially consulted, but d/t patient's echo, and the fact his troponins stayed the same, they did not feel the need to see the patient. His sats were in the 80's and low 90's on 3L. A repeat CXR was ordered. It showed nothing acute. He improved throughout his stay. It was felt he would need nebs and oxygen upon discharge. On 03/08/18, the patient developed sudden onset of left chest pain while he was sitting up in a chair. His blood pressure had been running high. He received 2 mg of morphine IV and Nitro paste 1 inch was applied. His pain resolved. His monitor was very stable and his EKG did not show any acute change. Cardiac enzymes were drawn and were lower than the ones at the beginning of admission. He did have some leg edema therefore he was given Lasix IV 20 mg. Cardiology did see the patient and recommended a heart cath, however the patient did not want a heart cath and preferred to go home. He was concerned he would have to have a repeat bypass surgery and was scared of this possibility. His sputum cx was positive for E. Coli and it was sensitive to rocephin. He was discharged home on metoprolol 50mg bid, imdur 30mg, omnicef, prednisone, and lasix 40mg daily. Cardiology will f/u with patient in 1-2 weeks and he will f/u in the office of [facility] as well. Objective Vital signs: Temp Pulse Resp BP Pulse Ox 97.5 F L 77 18 152/68 88 L 03/09/18 11:55 03/09/18 15:05 03/09/18 11:55 03/09/18 11:55 03/09/18 14:00 Narrative: - Constitutional Comments: Does not appear to feel well - *Routine HEENT Exam Head: Present: normocephalic, atraumatic Eye: Present: EOMI, PERRL ENT: Present: mucous membranes dry - *Routine Neck Exam Present: supple, full ROM - *Routine Respiratory Exam Present: decreased breath sounds, wheezes (bilateral). Absent: crackles - *Routine Cardiovascular Exam Present: RRR, tachycardia - *Routine Abdominal Exam Present: soft, normoactive bowel sounds. Absent: tenderness - *Routine Extremities Exam Absent: edema - *Routine Skin Exam Present: intact - *Routine Neurological Exam Present: alert, oriented X3 DS: Diagnosis - Discharge Diagnosis (1) Community acquired pneumonia Status: Acute Problem details: D/T E. Coli (2) Elevated troponin Status: Acute (3) ASCVD (arteriosclerotic cardiovascular disease) Status: Chronic (4) Hypertension Status: Chronic (5) Hyperlipidemia Status: Chronic (6) COPD (chronic obstructive pulmonary disease) Status: Chronic (7) Type 2 diabetes mellitus Status: Chronic Discharge Plan - Patient Discharge Instructions ACTIVITY: Limited activity DIET: continue same diet Additional Instructions: Activity as tolerated. Diet - Diabetic Patient Instructions: Heart-Healthy Diet, Carbohydrate-Counting Diet - Follow up Plan Follow up with: Good Garcia MD [Staff Physician] - 1 week Disposition: Home, Self-[facility] Medications: Home Medications Medication Instructions Recorded Confirmed Type Albuterol Sulfate [Proair Hfa 2 puffs IH Q6HP PRN 03/05/18 03/05/18 History 90mcg/puff Inh] Aspirin [Aspir-Low] 81 mg PO DAILY 03/05/18 03/05/18 History Doxazosin Mesylate [Doxazosin 2mg 2 mg PO DAILY 03/05/18 03/05/18 History Tab] Garlic 1,000 mg PO DAILY 03/05/18 03/05/18 History Glimepiride [Amaryl] 6 mg PO DAILY 03/05/18 03/05/18 History Ipratropium/Albuterol Sulfate 3 ml IH Q6HP PRN 03/05/18 03/05/18 History [Duoneb 3mL neb] Lisinopril [Lisinopril 40mg Tablet] 40 mg PO DAILY 03/05/18 03/05/18 History Pravastatin Sodium [Pravachol 40mg 40 mg PO DAILY 03/05/18 03/05/18 History Tablet] Prescriptions/Medication Reconciliation: New Isosorbide Mononitrate [Imdur 30mg ER tablet] 30 mg PO DAILY #30 tab predniSONE [Deltasone 20mg tablet] 20 mg PO DAILY #30 tab Metoprolol Tartrate [Lopressor 50mg tablet] 50 mg PO BID #60 tab Nicotine [Nicoderm 21mg/24hr patch] 21 mg TD DAILYP PRN patch.td24 PRN Reason: Nicotine Cravings Furosemide [Lasix 40mg tablet] 40 mg PO DAILY #30 tab Cefdinir [Omnicef 300mg Capsule] 300 mg PO BID #14 cap Continue Pravastatin Sodium [Pravachol 40mg Tablet] 40 mg PO DAILY Glimepiride [Amaryl] 6 mg PO DAILY Doxazosin Mesylate [Doxazosin 2mg Tab] 2 mg PO DAILY Aspirin [Aspir-Low] 81 mg PO DAILY Garlic 1,000 mg PO DAILY Lisinopril [Lisinopril 40mg Tablet] 40 mg PO DAILY Ipratropium/Albuterol Sulfate [Duoneb 3mL neb] 3 ml IH Q6HP PRN PRN Reason: Shortness Of Breath Albuterol Sulfate [Proair Hfa 90mcg/puff Inh] 2 puffs IH Q6HP PRN PRN Reason: Shortness Of Breath Discontinued Metoprolol Tartrate [Lopressor 25mg tablet] 25 mg PO BID
== END 2018-03-09 16:18 | disposition home or self-care (01) ==
LOC: ER 01:00 → 2ND 03:48
PROVIDERS: ADMIT Family Medicine; ATTEND Family Medicine

== ENCOUNTER → 2018-03-16 15:23 | Outpatient (CLI) | payer MEDICARE, SELFPAY ==
--- NOTE | 2018-03-16 15:29 | XR_ITS ---
XR chest 2V Ordering Physician: Good Garcia MD Patient Age: 67 years: Male HISTORY: ITS.REASON: PNEUMONIA Cough congestion TECHNIQUE: PA and lateral chest COMPARISON :PA and lateral chest from 03/07/2018 and CXR to December 27, 2016 FINDINGS Rather linear area of density is seen on the lateral film. There is likely some fluid thickening along the posteriorly displaced major fissure with atelectasis at the right lower lobe and with I suspect minimal wispy infiltrate RLL The left lung remains fairly clear with only some minor atelectasis left base. The heart is normal in size. Median sternotomy and CABG. Aurea and mediastinal structures unremarkable. Aorta mildly tortuous. There is mild hyperexpansion of lungs and flattening of diaphragm the lateral film reflecting some mild chronic changes as well. No pleural effusion. No pneumothorax. Chest wall and T-spine otherwise unremarkable. IMPRESSION. RLL infiltrate. Right lower lobe atelectasis & minimal infiltrate, with some associated mild thickening of major fissure
== END ==
PROVIDERS: PCP Family Medicine; Visit Provider Family Medicine
DX: J18.9 Pneumonia, unspecified organism (principal)
CPT/HCPCS: 71046

== ENCOUNTER → 2019-06-03 08:41 | Outpatient (CLI) | payer MEDICARE, SELFPAY ==
[2019-06-03 09:51] LABS: Blood Urea Nitrogen 20 mg/dL (7-18); Creatinine,Serum 1.26 mg/dL (0.70-1.30); Estimated Glomerular Filt Rate 57 ml/min (>60); GFR (African American) 68 ML/MIN (>60)
--- NOTE | 2019-06-03 10:03 | CT_ITS ---
CT head/brain wo/w con HISTORY: ITS.REASON: DIZZINESS ORDERING PHYSICIAN: Michael Branch MD PATIENT AGE: 68 years COMPARISON: None TECHNIQUE: Contrast Used:100ml Optiray 320 Axial images were obtained. Brain and bone windows reviewed. All CT scans at the facility use one or more dose reduction, viz: automated exposure control, ma/kV adjustment per patient size (including targeted exams where dose is matched to indication, i.e. head), or iterative reconstruction technique. FINDINGS: No midline shift, mass effect, intracranial hemorrhage, hydrocephalus, or extra-axial fluid collection is evident. No enhancing lesions are evident. The calvarium has an unremarkable appearance. No mastoid effusion. No sinus air-fluid levels.. There is [id number] mucosal thickening of the ethmoid sinuses with opacification of the left maxillary sinus IMPRESSION: 1. No acute intracranial findings. 2. Paranasal sinus disease
== END ==
PROVIDERS: Visit Provider Family Medicine
DX: R42 Dizziness and giddiness (principal)
CPT/HCPCS: 36415; 70470; 82565; 84520; Q9967

== ENCOUNTER 2020-01-14 12:52 | Inpatient (IN) ==
--- NOTE | 2020-01-14 13:18 | Emergency Department Note ---
ED Disposition Clinical Impression: Community acquired pneumonia Qualifiers: Laterality: left Lung location: lower lobe of lung Qualified Code(s): J18.9 - Pneumonia, unspecified organism Sepsis Qualifiers: Sepsis type: sepsis due to unspecified organism Sepsis acute organ dysfunction status: without acute organ dysfunction Qualified Code(s): A41.9 - Sepsis, unspecified organism Disposition: Admitted As Inpatient Condition on Discharge: Serious - Critical Care Critical Care Time: No Attestation: On , the high probability of a clinically significant, sudden or life threatening deterioration of the following system(s) required my full and direct attention, intervention and personal management. The time I documented below is in addition to time spent performing reported procedures but includes the following listed in this critical care notation. Medical Decision Making - Gigi Inquiry Pt receiving controlled substance: No Vital Signs: 01/14/20 13:19 01/14/20 13:37 01/14/20 14:05 Temperature 102 F H Temperature Source Oral Pulse Rate 133 H Pulse Rate [Left Radial] 130 H 129 H Respiratory Rate 40 H 42 H Blood Pressure [Right Arm] 147/82 H 150/75 H Blood Pressure Mean [Right Arm] 103 100 Blood Pressure Position [Right Arm] Sitting Sitting 02 Sat by Pulse Oximetry 98 93 L Oxygen Delivery Method Room Air Nasal Cannula Oxygen Flow Rate (LPM) 4 01/14/20 14:26 Temperature 102.2 F H Temperature Source Oral Pulse Rate Pulse Rate [Left Radial] 129 H Respiratory Rate 40 H Blood Pressure [Right Arm] 130/87 Blood Pressure Mean [Right Arm] 101 Blood Pressure Position [Right Arm] Sitting 02 Sat by Pulse Oximetry 93 L Oxygen Delivery Method Nasal Cannula Oxygen Flow Rate (LPM) 4 - Lab Data Lab Results 01/14/20 13:25: WBC 12.9 H, RBC 4.50 L, Hgb 13.8 L, Hct 41.1 L, MCV 91.3, MCH 30.6, MCHC 33.5, RDW 13.5, Plt Count 205, MPV 9.2, Neut % (Auto) 91.9 H, Lymph % (Auto) 3.9 L, [place] % (Auto) 3.7, Eos % (Auto) 0.4, Baso % (Auto) 0.2, Neut # (Auto) 11.9 H, Lymph # (Auto) 0.5 L, [place] # (Auto) 0.5, Eos # (Auto) 0.1, Baso # (Auto) 0.0, Total Counted 100, Neutrophils % (Manual) 92 H, Lymphocytes % (Manual) 5 L, Monocytes % (Manual) 3, Platelet Estimate Normal, RBC Morphology Normal 01/14/20 13:25: Sodium 135 L, Potassium 3.3 L, Chloride 99, Carbon Dioxide 24, Anion Gap 15.3 H, BUN 17, Creatinine 1.10, Estimated Creat Clear 81, Estimated GFR 66, Est GFR ( Amer) 80, Glucose 246 H, Calcium 9.8, Total Bilirubin 0.5, AST 36, ALT 39, Alkaline Phosphatase 80, Troponin I 0.06 H, Total Protein 7.1, Albumin 3.9, Globulin 3.2, Albumin/Globulin Ratio 1.2 01/14/20 13:25: Lactate 1.9 01/14/20 13:25: Influenza Type A Ag Negative, Influenza Type B Ag Negative 01/14/20 13:27: Specimen Source R radial, O2 % 4lpm, ABG pH 7.46 H, ABG pCO2 31.6 L, ABG pO2 64.7 L, ABG HCO3 22.0, ABG Total CO2 23.0, ABG O2 Saturation 94, ABG Base Excess -1.8, Mohan Test Acceptable Result diagrams: 01/14/20 13:25 01/14/20 13:25 Orders (Tests/Meds): ED MEDICATIONS Generic Name Dose Route Start Last Admin Trade Name Freq PRN Reason Stop Dose Admin Ceftriaxone Sodium 1 gm/ 50 mls @ 100 mls/hr 01/14/20 14:00 01/14/20 14:06 Sodium Chloride IV 01/28/20 13:59 100 mls/hr Q24H VINCE Administration Protocol Azithromycin 500 mg/ Sodium 250 mls @ 250 mls/hr 01/14/20 14:00 Chloride IV 01/28/20 13:59 Q24H VINCE Protocol Discontinued Medications Generic Name Dose Route Start Last Admin Trade Name Freq PRN Reason Stop Dose Admin Acetaminophen 650 mg 01/14/20 13:39 01/14/20 13:43 Acetaminophen 325mg Tab PO 01/14/20 13:40 650 mg ONCE ONE Administration Albuterol/Ipratropium 3 ml 01/14/20 13:28 01/14/20 13:32 Duoneb 3ml Neb 01/14/20 13:29 3 ml ONCE ONE Administration Ibuprofen 800 mg 01/14/20 14:25 Motrin 400mg Tablet PO 01/14/20 14:26 ONCE ONE Methylprednisolone Sodium Succinate 125 mg 01/14/20 13:28 01/14/20 13:43 Solu-Medrol 125mg/2ml Vial IV 01/14/20 13:29 125 mg ONCE ONE Administration ORDERS Category Date Time Status Troponin I Q3H Lab 01/14/20 16:30 Ordered Troponin I Q3H Lab 01/14/20 19:30 Ordered Blood Culture Stat Micro 01/14/20 13:25 Received - Radiology Data #1 Image(s): Chest, Shoulder Image Reviewed: Yes I reviewed the patient's radiology image Chest: Infiltrate in lingula and left base Left shoulder: No acute disease, no fracture, no dislocation - ECG Data Tracing #1 EKG interpreted by Leighton Roblero MD: Rhythm: sinus tachycardia Rate: 126 [place]: normal Ectopy: none Conduction: normal ST Segment Changes: none T Wave Changes: none Q Waves: none No evidence of acute ischemia or injury Low voltage QRS - Physician Consults Physician Consulted: Jose Time: 14:05 Reason -: Admission Comment/Response: Agrees to admit the patient to the hospital. We discussed the patient's clinical information, including history, exam, laboratory and radiology results and ED course. Per hospital procedure, I will write temporary bridge inpatient orders on the patient. Specific orders requested by the admitting physician: Continue current treatment General Adult HPI - General Stated complaint: nausea fever high b/p copd Time Seen by Provider: 01/14/20 13:18 - History of Present Illness HPI narrative: Patient has been sick for 1 week, started with fever cough and increased shortness of breath. He has had rhinorrhea and had a sore throat for couple of days. Fever has been up to 102 degrees. No vomiting or diarrhea. No chest pain. He has COPD. He is on oxygen at all times. He uses a nebulizer, 2 treatments since midnight. Heart rate and blood pressure were high this morning. He is a smoker, but has not smoked for about a week. Also complains of left shoulder pain for a month radiating down his left arm with numbness of his left hand. - Related Data Home Medications Medication Instructions Recorded Confirmed Albuterol Sulfate [Proair Hfa 2 puffs IH Q6HP PRN 03/05/18 01/14/20 90mcg/puff Inh] Aspirin [Aspir-Low] 81 mg PO DAILY 03/05/18 01/14/20 Doxazosin Mesylate [Doxazosin 2mg 2 mg PO DAILY 03/05/18 01/14/20 Tab] Garlic 1,000 mg PO DAILY 03/05/18 01/14/20 Glimepiride [Amaryl] 6 mg PO DAILY 03/05/18 01/14/20 Ipratropium/Albuterol Sulfate 3 ml IH Q6HP PRN 03/05/18 01/14/20 [Duoneb 3mL neb] Pravastatin Sodium [Pravachol 40mg 40 mg PO DAILY 03/05/18 01/14/20 Tablet] lisinopriL [Lisinopril 40mg Tablet] 40 mg PO DAILY 03/05/18 01/14/20 Furosemide [Lasix 20mg tab] 20 mg PO HS 01/14/20 01/14/20 Furosemide [Lasix 40mg tablet] 40 mg PO DAILY 01/14/20 01/14/20 Isosorbide Mononitrate [Imdur 30mg 30 mg PO DAILY 01/14/20 01/14/20 ER tablet] Metformin HCl [Metformin HCl ER] 500 mg PO DAILY 01/14/20 01/14/20 Metoprolol Tartrate [Lopressor 50 mg PO BID 01/14/20 01/14/20 50mg tablet] Allergies Allergy/AdvReac Type Severity Reaction Status Date / Time No Known Allergies Allergy Verified 03/05/18 11:19 [facility] History - Hepatitis A Screen Attestation statement:: This patient has been screened for Hepatitis A risk factors. I have reviewed the patient's past medical history: Yes Medical History: Reports:: BPH, Chronic Obstructive Pulmonary Disease (COPD), Coronary Artery Disease, Diabetes Mellitus Type 2, Hyperlipidemia, Hypertension, Myocardial Infarction Denies:: Cancer, Diabetes Mellitus Type 1, Internal Pacemaker, MRSA Other Surgeries: Yes: CABG (2005). No: Pacemaker Amputation: No Fractures: No - Social History Smoking Status: Current every day smoker Tobacco Type: cigarettes # Packs/Day (cigarettes): 1 #Yrs smoked (if former smoker): 56 Alcohol Intake: never Alcohol Intake Frequency:: a few times a month Occupational Status: retired Housing: house Household Members: spouse Family Hx:: Cancer, Coronary Artery Disease, Diabetes, Heart Attack, Hyperlipidemia, Hypertension ROS Obtained: Yes All systems reviewed & no additional complaints - Constitutional Constitutional: Reports fever(s) - ENT Ears, Nose, Mouth, and Throat: Reports nasal discharge, Reports sore throat - Cardiovascular Cardiovascular: Denies chest pain - Respiratory Respiratory: Yes cough, Yes dyspnea - Gastrointestinal Gastrointestingal: Denies: abdominal pain, diarrhea, vomiting - Musculoskeletal Musculoskeletal: Reports as per HPI, Reports joint pain Physical Exam - General General appearance: alert Comment: Frequent coughing. Purse lipped breathing. - Head Head exam: atraumatic, normocephalic - Eye Eye exam: Present: normal appearance, EOMI - ENT ENT exam: Present: mucous membranes moist - Neck Neck exam: Present: normal inspection. Absent: meningismus - Chest Chest inspection: Present: normal inspection, symmetric chest wall rise - Respiratory Respiratory exam: Present: wheezes - Cardiovascular Cardiovascular exam: Present: normal rhythm, tachycardia - Abdominal Exam Abdominal exam: Present: soft. Absent: distention, tenderness - Extremities Exam Extremities exam: Present: normal inspection - Neurological Exam Neurological exam: Present: alert, oriented X3 - Psychiatric Psychiatric exam: Present: normal affect, normal mood - Skin Skin exam: Present: warm, dry
[2020-01-14 13:37] LABS: Basophils % 0.2 % (0.1-2.0); Eosinophils # 0.1 K/mm3 (0.0-0.4); Eosinophils % 0.4 % (0.1-12.0); Hematocrit 41.1 % (42.0-52.0); Hemoglobin 13.8 g/dL (14.1-18.0); Lymphocytes # 0.5 K/mm3 (0.7-4.5); Lymphocytes % 3.9 % (10-50); Mean Corpuscular HGB Conc 33.5 g/dL (31.8-35.4); Mean Corpuscular Volume 91.3 fl (80-94); Mean Platelet Volume 9.2 fl (7.4-10.4); Monocytes # 0.5 K/mm3 (0.1-1.0); Monocytes % 3.7 % (1.7-9.3); Neutrophils # 11.9 K/mm3 (1.8-7.8); Neutrophils % 91.9 % (37.0-80.0); Platelet Count 205 K/mm3 (142-424); Red Cell Distribution Width 13.5 % (11.5-17.5); White Blood Count 12.9 K/mm3 (4.8-10.8)
[2020-01-14 13:47] LABS: ABG Base Excess -1.8 mmol/L (-2.4-2.3); ABG Oxygen Saturation 94 % (90-100); ABG PCO2 31.6 mmhg (35.0-45.0); ABG PH 7.46 mmol/L (7.35-7.45); ABG PO2 64.7 mmhg (80-100)
[2020-01-14 13:47] LABS: Albumin Level 3.9 g/dl (3.5-5.0); Albumin/Globulin Ratio 1.2 (1.1-1.8); Anion Gap 15.3 mEq/L (5-15); Bilirubin,Total 0.5 mg/dl (0.2-1.3); Calcium 9.8 mg/dl (8.4-10.2); Globulin 3.2 g/dL (1.3-3.2); Total Protein,Serum 7.1 g/dl (6.3-8.2)
[2020-01-14 13:48] LABS: Allen's Test ACCEPTABLE; Oxygen 4LPM %
[2020-01-14 13:50] LABS: Lymphocytes % 5 % (10-50); Monocytes % 3 % (2-9); Neutrophils % 92 % (42-76); Total Cells Counted 100
[2020-01-14 13:51] LABS: RBC Morphology Normal
--- NOTE | 2020-01-14 15:25 | Pharmacy Consult Notes ---
[facility] Pharmacy VTE Monitoring - Patient Demographics Admission date: 01/14/20 Report Date: 01/14/20 Time: 15:25 Allergies/Adverse Reactions: Patient Allergies No Known Allergies Allergy (Verified 03/05/18 11:19) Height: 1.65 m Weight: 89.386 kg Patient Problems: Current Active Problems Community acquired pneumonia (Acute) Sepsis (Acute) - VTE Risk Labs: VTE Related Lab Results Hgb 13.8 g/dL (14.1-18.0) L 01/14/20 13:25 Hct 41.1 % (42.0-52.0) L 01/14/20 13:25 Plt Count 205 K/mm3 (142-424) 01/14/20 13:25 BUN 17 mg/dl (9-20) 01/14/20 13:25 Creatinine 1.10 mg/dl (0.66-1.25) 01/14/20 13:25 Estimated Creat Clear 81 mL/min (50-200) 01/14/20 13:25 Was VTE Risk Assessment Performed: Yes VTE Score: 3 VTE Risk Level: Low Risk - Prophylaxis VTE Prophylaxis Ordered?: Yes Types of VTE Prophylaxis: TEDS Knee High Location of Applied Device: Bilateral Lower Extremeties
--- NOTE | 2020-01-14 16:35 | History & Physical Report ---
*Admission Date: 01/14/20 <Silvana Meredith 01/14/20 16:40> *Chief complaint: SOA, cough, weakness <Silvana Meredith 01/14/20 16:40> *History of present illness: Mr. Umaña is a 69-year-old male with a history of hypertension, hyperlipidemia, oxygen dependent COPD, ASCVD, and type 2 diabetes who began feeling poorly on Friday. His states he began getting more short of breath and coughing. He became more more lethargic and was unable to eat or drink. He had some diarrhea for the past 3 days. He normally has home oxygen at 2 L/min and he does duonebs as well. He developed a fever of 103 and was brought to the emergency room for evaluation. His white blood cell cou nt was elevated, his potassium was low, his troponin was slightly elevated, his flu test came back negative, but a chest x-ray revealed a left lower lobe pneumonia. He was admitted and started on duo nebs, Zithromax and Rocephin, steroids, IV fluids, and some of his home medications. <Silvana Meredith 01/14/20 16:40> [facility] History I have reviewed the patient's past medical history: Yes <Silvana Meredith 01/14/20 16:40> Medical History: Reports:: BPH, Chronic Obstructive Pulmonary Disease (COPD), Coronary Artery Disease, Diabetes Mellitus Type 2, Hyperlipidemia, Hypertension, Myocardial Infarction Denies:: Cancer, Diabetes Mellitus Type 1, Internal Pacemaker, MRSA <Silvana Alvarez 01/14/20 16:40> *Have you ever received a pneumonia vaccine?: Yes <Silvana Meredith 01/14/20 16:40> *Have you received a flu vaccine this season?: No <Silvana Meredith 01/14/20 16:40> Other Surgeries: Yes: CABG (2005). No: Pacemaker <Silvana Meredith 01/14/20 16:40> Amputation: No <Silvana Meredith 01/14/20 16:40> Fractures: No <Silvana Meredith 01/14/20 16:40> - *Social History Educational Level: Attended High School <Silvana Meredith 01/14/20 16:40> Smoking Status: Current some day smoker <Silvana Meredith 01/14/20 16:40> Tobacco Type: cigarettes <Silvana Meredith 01/14/20 16:40> # Packs/Day (cigarettes): 1 <Silvana Meredith 01/14/20 16:40> #Yrs smoked (if former smoker): 56 <Silvana Meredith 01/14/20 16:40> Alcohol Intake: never <Silvana Meredith 01/14/20 16:40> Alcohol Intake Frequency:: a few times a month <Silvana Meredith 01/14/20 16:40> *Occupational Status:: retired <Silavna Meredith 01/14/20 16:40> Housing: house <Silvana Meredith 01/14/20 16:40> Household Members: spouse <Silvana Meredith 01/14/20 16:40> *Travel in the last 8 weeks: None <Silvana Meredith 01/14/20 16:40> Family Hx:: Cancer, Coronary Artery Disease, Heart Attack, Hyperlipidemia, Hypertension <Silvana Meredith 01/14/20 16:40> Review of Systems - Constitutional Reports body ache(s), Reports chills, Reports fever(s), Reports weakness <Silvana Meredith 01/14/20 16:40> - Eyes Denies blurry vision, Denies double vision <Rafael Mereditha 01/14/20 16:40> - ENT Reports nasal congestion, Denies sore throat <Rafael Mereditha 01/14/20 16:40> - *Cardiovascular Reports shortness of breath, Denies chest pain, Denies leg swelling <Silvana Meredith 01/14/20 16:40> - *Respiratory Reports chest congestion, Reports cough, Reports wheezing <Silvana Meredith 01/14/20 16:40> - *Gastrointestinal Reports loose stools, Denies abdominal pain, Denies nausea, Denies vomiting <Silvana Meredith 01/14/20 16:40> - *Genitourinary Reports difficulty urinating, Denies painful urination <Silvana Meredith 01/14/20 16:40> - *Musculoskeletal Denies joint pain <Silvana Meredith 01/14/20 16:40> - *Neurologic Reports weakness, Denies headache(s), Denies dizziness <Silvana Meredith - 01/14/20 16:40> Meds Home Medications Medication Instructions Recorded Confirmed Type Albuterol Sulfate [Proair Hfa 2 puffs IH Q6HP PRN 03/05/18 01/14/20 History 90mcg/puff Inh] Aspirin [Aspir-Low] 81 mg PO DAILY 03/05/18 01/14/20 History Doxazosin Mesylate [Doxazosin 2mg 2 mg PO DAILY 03/05/18 01/14/20 History Tab] Garlic 1 tab PO DAILY 03/05/18 01/14/20 History Glimepiride [Amaryl] 6 mg PO DAILY 03/05/18 01/14/20 History Ipratropium/Albuterol Sulfate 3 ml IH Q6HP PRN 03/05/18 01/14/20 History [Duoneb 3mL neb] Pravastatin Sodium [Pravachol 40mg 40 mg PO HS 03/05/18 01/14/20 History Tablet] lisinopriL [Lisinopril 40mg Tablet] 40 mg PO DAILY 03/05/18 01/14/20 History Furosemide [Lasix 40mg tab] 20 mg PO HS 01/14/20 01/14/20 History Furosemide [Lasix 40mg tablet] 40 mg PO DAILY 01/14/20 01/14/20 History Isosorbide Mononitrate [Imdur 30mg 30 mg PO DAILY 01/14/20 01/14/20 History ER tablet] Metformin HCl [Metformin HCl ER] 1,000 mg PO DAILY 01/14/20 01/14/20 History Metoprolol Tartrate [Lopressor 50 mg PO BID 01/14/20 01/14/20 History 50mg tablet] <Michael Branch - 01/14/20 17:29> Allergies Allergy/AdvReac Type Severity Reaction Status Date / Time No Known Allergies Allergy Verified 03/05/18 11:19 <Michael Branch - 01/14/20 17:29> Exam Vital signs and Labs for Last 24 Hours: Temp Pulse Resp BP Pulse Ox 98.2 F 120 H 40 H 130/87 92 L 01/14/20 16:00 01/14/20 16:12 01/14/20 15:12 01/14/20 15:12 01/14/20 15:53 Laboratory Results - last 24 hr 01/14/20 13:25: WBC 12.9 H, RBC 4.50 L, Hgb 13.8 L, Hct 41.1 L, MCV 91.3, MCH 30.6, MCHC 33.5, RDW 13.5, Plt Count 205, MPV 9.2, Neut % (Auto) 91.9 H, Lymph % (Auto) 3.9 L, [place] % (Auto) 3.7, Eos % (Auto) 0.4, Baso % (Auto) 0.2, Neut # (Auto) 11.9 H, Lymph # (Auto) 0.5 L, [place] # (Auto) 0.5, Eos # (Auto) 0.1, Baso # (Auto) 0.0, Total Counted 100, Neutrophils % (Manual) 92 H, Lymphocytes % (Manual) 5 L, Monocytes % (Manual) 3, Platelet Estimate Normal, RBC Morphology Normal 01/14/20 13:25: Sodium 135 L, Potassium 3.3 L, Chloride 99, Carbon Dioxide 24, Anion Gap 15.3 H, BUN 17, Creatinine 1.10, Estimated Creat Clear 81, Estimated GFR 66, Est GFR ( Amer) 80, Glucose 246 H, Calcium 9.8, Total Bilirubin 0.5, AST 36, ALT 39, Alkaline Phosphatase 80, Troponin I 0.06 H, Total Protein 7.1, Albumin 3.9, Globulin 3.2, Albumin/Globulin Ratio 1.2 01/14/20 13:25: Lactate 1.9 01/14/20 13:25: Influenza Type A Ag Negative, Influenza Type B Ag Negative 01/14/20 13:27: Specimen Source R radial, O2 % 4lpm, ABG pH 7.46 H, ABG pCO2 31.6 L, ABG pO2 64.7 L, ABG HCO3 22.0, ABG Total CO2 23.0, ABG O2 Saturation 94, ABG Base Excess -1.8, Mohan Test Acceptable 01/14/20 16:17: POC Glucose 393 H* 01/14/20 16:20: Troponin I 0.07 H <Michael Branch - 01/14/20 17:29> Temp Pulse Resp BP Pulse Ox 98.2 F 122 H 40 H 130/87 92 L 01/14/20 16:00 01/14/20 15:12 01/14/20 15:12 01/14/20 15:12 01/14/20 15:53 Laboratory Results - last 24 hr 01/14/20 13:25: WBC 12.9 H, RBC 4.50 L, Hgb 13.8 L, Hct 41.1 L, MCV 91.3, MCH 30.6, MCHC 33.5, RDW 13.5, Plt Count 205, MPV 9.2, Neut % (Auto) 91.9 H, Lymph % (Auto) 3.9 L, [place] % (Auto) 3.7, Eos % (Auto) 0.4, Baso % (Auto) 0.2, Neut # (Auto) 11.9 H, Lymph # (Auto) 0.5 L, [place] # (Auto) 0.5, Eos # (Auto) 0.1, Baso # (Auto) 0.0, Total Counted 100, Neutrophils % (Manual) 92 H, Lymphocytes % (Manual) 5 L, Monocytes % (Manual) 3, Platelet Estimate Normal, RBC Morphology Normal 01/14/20 13:25: Sodium 135 L, Potassium 3.3 L, Chloride 99, Carbon Dioxide 24, Anion Gap 15.3 H, BUN 17, Creatinine 1.10, Estimated Creat Clear 81, Estimated GFR 66, Est GFR ( Amer) 80, Glucose 246 H, Calcium 9.8, Total Bilirubin 0.5, AST 36, ALT 39, Alkaline Phosphatase 80, Troponin I 0.06 H, Total Protein 7.1, Albumin 3.9, Globulin 3.2, Albumin/Globulin Ratio 1.2 01/14/20 13:25: Lactate 1.9 01/14/20 13:25: Influenza Type A Ag Negative, Influenza Type B Ag Negative 01/14/20 13:27: Specimen Source R radial, O2 % 4lpm, ABG pH 7.46 H, ABG pCO2 31.6 L, ABG pO2 64.7 L, ABG HCO3 22.0, ABG Total CO2 23.0, ABG O2 Saturation 94, ABG Base Excess -1.8, Mohan Test Acceptable 01/14/20 16:17: POC Glucose 393 H* <Silvana Meredith - 01/14/20 16:40> I & O for Last 24 hours: Intake & Output 01/12/20 01/13/20 01/14/20 01/15/20 11:59 11:59 11:59 11:59 Intake Total 120 / 120 Balance 120 / 120 Weight 197 lb 1 oz <Michael Branch - 01/14/20 17:29> Intake & Output 01/12/20 01/13/20 01/14/20 01/15/20 11:59 11:59 11:59 11:59 Intake Total 120 / 120 Balance 120 / 120 Weight 197 lb 1 oz <Silvana Meredith - 01/14/20 16:40> - Constitutional Comments: Does not appear to feel well <Silvana Meredith 01/14/20 16:40> - *Routine HEENT Exam Head: Present: normocephalic <SaelittleSilvana 01/14/20 16:40> Eye: Present: EOMI, PERRL <Silvana Meredith 01/14/20 16:40> ENT: Present: mucous membranes dry <Silvana Meredith 01/14/20 16:40> - *Routine Neck Exam Present: supple. Absent: lymphadenopathy <Silvana Meredith 01/14/20 16:40> - *Routine Respiratory Exam Present: rales (left base), wheezes (throughout) <Silvana Meredith 01/14/20 16:40> - *Routine Cardiovascular Exam Present: RRR <Silvana Meredith 01/14/20 16:40> - *Routine Abdominal Exam Present: soft, normoactive bowel sounds. Absent: tenderness <Silvana Meredith 01/14/20 16:40> - *Routine Extremities Exam Absent: cyanosis, clubbing, edema <SaelittleSilvana 01/14/20 16:40> - *Routine Skin Exam Present: warm. Absent: rash <Silvana Meredith 01/14/20 16:40> - *Routine Neurological Exam Present: alert, oriented X3 <ViriSilvana 01/14/20 16:40> H&P: Result - Impressions CXR - LLL pneumonia Shoulder x-ray - nothing acute <Silvana Meredith - 01/14/20 16:40> Assessment and Plan (1) Community acquired pneumonia Problem details: D/T E. Coli Current visit: Yes Status: Acute Qualifiers: Laterality: left Lung location: lower lobe of lung Qualified Code(s): J18.9 - Pneumonia, unspecified organism Category: Medical Code(s): J18.9 - Pneumonia, unspecified organism (2) Sepsis Current visit: Yes Status: Acute Qualifiers: Sepsis type: sepsis due to unspecified organism Sepsis acute organ dysfunction status: without acute organ dysfunction Qualified Code(s): A41.9 - Sepsis, unspecified organism Category: Medical Code(s): A41.9 - Sepsis, unspecified organism (3) Acute exacerbation of chronic obstructive airways disease Current visit: No Status: Acute Category: Medical Code(s): J44.1 - Chronic obstructive pulmonary disease with (acute) exacerbation (4) Elevated troponin Current visit: No Status: Acute Category: Medical Code(s): R74.8 - Abnormal levels of other serum enzymes (5) ASCVD (arteriosclerotic cardiovascular disease) Current visit: No Status: Chronic Category: Medical Code(s): I25.10 - Atherosclerotic heart disease of [place] coronary artery without angina pectoris (6) COPD (chronic obstructive pulmonary disease) Current visit: No Status: Chronic Category: Medical Code(s): J44.9 - Chronic obstructive pulmonary disease, unspecified (7) Hyperlipidemia Current visit: No Status: Chronic Category: Medical Code(s): E78.5 - Hyperlipidemia, unspecified (8) Hypertension Current visit: No Status: Chronic Category: Medical Code(s): I10 - Essential (primary) hypertension (9) Type 2 diabetes mellitus Current visit: No Status: Chronic Category: Medical Code(s): E11.9 - Type 2 diabetes mellitus without complications <Silvana Meredith - 01/14/20 16:32> (1) Community acquired pneumonia Problem details: D/T E. Coli Current visit: Yes Status: Acute Qualifiers: Laterality: left Lung location: lower lobe of lung Qualified Code(s): J 18.9 - Pneumonia, unspecified organism Category: Medical Code(s): J18.9 - Pneumonia, unspecified organism (2) Sepsis Current visit: Yes Status: Acute Qualifiers: Sepsis type: sepsis due to unspecified organism Sepsis acute organ dysfunction status: without acute organ dysfunction Qualified Code(s): A41.9 - Sepsis, unspecified organism Category: Medical Code(s): A41.9 - Sepsis, unspecified organism (3) Acute exacerbation of chronic obstructive airways disease Current visit: No Status: Acute Category: Medical Code(s): J44.1 - Chronic obstructive pulmonary disease with (acute) exacerbation (4) Elevated troponin Current visit: No Status: Acute Category: Medical Code(s): R74.8 - Abnor mal levels of other serum enzymes (5) ASCVD (arteriosclerotic cardiovascular disease) Current visit: No Status: Chronic Category: Medical Code(s): I25.10 - Atherosclerotic heart disease of [place] coronary artery without angina pectoris (6) COPD (chronic obstructive pulmonary disease) Current visit: No Status: Chronic Category: Medical Code(s): J44.9 - Chronic obstructive pulmonary disease, unspecified (7) Hyperlipidemia Current visit: No Status: Chronic Category: Medical Code(s): E78.5 - Hyperlipidemia, unspecified (8) Hypertension Current visit: No Status: Chronic Category: Medical Code(s): I10 - Essential (primary) hypertension (9) Type 2 diabetes mellitus Current visit: No Status: Chronic Category: Medical Code(s): E11.9 - Type 2 diabetes mellitus without complications <Michael Branch - 01/14/20 17:29> - Assessment and plan all Dx Assessment and Plan for all problems:: Patient seen and examined. He is somnolent but arouses and answers questions although is a poor historian. He states he is breathing better now than he was when he arrived this morning. Note elevated troponin but he denies chest pain. Respirations are unlabored and O2 sats are satisfactory. Concur with assessment and plan as outlined. <Michael Branch - 01/14/20 17:29> Patient has been started on Zithromax and Rocephin along with duo nebs, steroids, and IV fluids. Will also add potassium due to hypokalemia. Will await sputum culture results. <Silvana Meredith - 01/14/20 16:40>
--- NOTE | 2020-01-15 08:05 | Progress Note ---
Internal Medicine - PN: Subj *Date: 01/15/20 *Time: 07:58 Interval history: He rested fairly well through the night. He had one episode of shortness of breath when he was up to the bathroom. This was relieved with an aerosol treatment. He still has some cough which is mostly nonproductive. Denies chest pain Exam Vital signs and Labs for Last 24 Hours: Temp Pulse Resp BP Pulse Ox 97.7 F 93 H 18 125/76 91 L 01/15/20 07:37 01/15/20 07:37 01/15/20 07:37 01/15/20 07:37 01/15/20 07:37 Laboratory Results - last 24 hr 01/14/20 13:25: WBC 12.9 H, RBC 4.50 L, Hgb 13.8 L, Hct 41.1 L, MCV 91.3, MCH 30.6, MCHC 33.5, RDW 13.5, Plt Count 205, MPV 9.2, Neut % (Auto) 91.9 H, Lymph % (Auto) 3.9 L, [place] % (Auto) 3.7, Eos % (Auto) 0.4, Baso % (Auto) 0.2, Neut # (Auto) 11.9 H, Lymph # (Auto) 0.5 L, [place] # (Auto) 0.5, Eos # (Auto) 0.1, Baso # (Auto) 0.0, Total Counted 100, Neutrophils % (Manual) 92 H, Lymphocytes % (Manual) 5 L, Monocytes % (Manual) 3, Platelet Estimate Normal, RBC Morphology Normal 01/14/20 13:25: Sodium 135 L, Potassium 3.3 L, Chloride 99, Carbon Dioxide 24, Anion Gap 15.3 H, BUN 17, Creatinine 1.10, Estimated Creat Clear 81, Estimated GFR 66, Est GFR ( Amer) 80, Glucose 246 H, Calcium 9.8, Total Bilirubin 0.5, AST 36, ALT 39, Alkaline Phosphatase 80, Troponin I 0.06 H, Total Protein 7.1, Albumin 3.9, Globulin 3.2, Albumin/Globulin Ratio 1.2 01/14/20 13:25: Lactate 1.9 01/14/20 13:25: Influenza Type A Ag Negative, Influenza Type B Ag Negative 01/14/20 13:27: Specimen Source R radial, O2 % 4lpm, ABG pH 7.46 H, ABG pCO2 31.6 L, ABG pO2 64.7 L, ABG HCO3 22.0, ABG Total CO2 23.0, ABG O2 Saturation 94, ABG Base Excess -1.8, Mohan Test Acceptable 01/14/20 16:17: POC Glucose 393 H* 01/14/20 16:20: Troponin I 0.07 H 01/14/20 19:15: Troponin I 0.05 H 01/14/20 19:44: POC Glucose 357 H* 01/15/20 05:24: POC Glucose 263 H I & O for Last 24 hours: Intake & Output 01/12/20 01/13/20 01/14/20 01/15/20 11:59 11:59 11:59 11:59 Intake Total 1743 / 1743 Output Total 450 / 450 Balance 1293 / 1293 Weight 197 lb 8 oz Microbiology Reports for the Last 24 Hours: Microbiology 01/14/20 13:45 Sputum - Expectorated Sputum Gram Stain - Final 01/14/20 13:45 Sputum - Expectorated Sputum Sputum Culture - Preliminary Narrative: He is much more alert and oriented this morning. Color is good. No respiratory distress. Chest reveals some bibasilar rales. No wheezes. Heart is regular. Extremities no edema. Assessment and Plan (1) Community acquired pneumonia Problem details: D/T E. Coli Current visit: Yes Status: Acute Qualifiers: Laterality: left Lung location: lower lobe of lung Qualified Code(s): J18.9 - Pneumonia, unspecified organism Category: Medical Code(s): J18.9 - Pneumonia, unspecified organism (2) Sepsis Current visit: Yes Status: Acute Qualifiers: Sepsis type: sepsis due to unspecified organism Sepsis acute organ dysfunction status: without acute organ dysfunction Qualified Code(s): A41.9 - Sepsis, unspecified organism Category: Medical Code(s): A41.9 - Sepsis, unspecified organism (3) Acute exacerbation of chronic obstructive airways disease Current visit: No Status: Acute Category: Medical Code(s): J44.1 - Chronic obstructive pulmonary disease with (acute) exacerbation (4) Elevated troponin Current visit: No Status: Acute Category: Medical Code(s): R74.8 - Abnormal levels of other serum enzymes (5) ASCVD (arteriosclerotic cardiovascular disease) Current visit: No Status: Chronic Category: Medical Code(s): I25.10 - Atherosclerotic heart disease of [place] coronary artery without angina pectoris (6) COPD (chronic obstructive pulmonary disease) Current visit: No Status: Chronic Category: Medical Code(s): J44.9 - Chronic obstructive pulmonary disease, unspecified (7) Hyperlipidemia Current visit: No Status: Chronic Category: Medical Code(s): E78.5 - Hyperlipidemia, unspecified (8) Hypertension Current visit: No Status: Chronic Category: Medical Code(s): I10 - Essential (primary) hypertension (9) Type 2 diabetes mellitus Current visit: No Status: Chronic Category: Medical Code(s): E11.9 - Type 2 diabetes mellitus without complications - Assessment and plan all Dx Assessment and Plan for all problems:: He looks and feels better this morning. Repeat labs and sputum culture pending. We will continue current antibiotic regimen, steroids, and aerosols. Blood sugars have been elevated related to the steroids. He is on sliding scale for coverage.
[2020-01-15 08:48] LABS: Basophils % 0.1 % (0.1-2.0); Eosinophils % 0.1 % (0.1-12.0); Hematocrit 42.2 % (42.0-52.0); Hemoglobin 13.5 g/dL (14.1-18.0); Lymphocytes # 0.5 K/mm3 (0.7-4.5); Lymphocytes % 3.3 % (10-50); Mean Corpuscular Volume 95.7 fl (80-94); Mean Platelet Volume 9.5 fl (7.4-10.4); Monocytes # 0.4 K/mm3 (0.1-1.0); Monocytes % 2.4 % (1.7-9.3); Neutrophils # 14.6 K/mm3 (1.8-7.8); Neutrophils % 94.1 % (37.0-80.0); Platelet Count 239 K/mm3 (142-424); Red Blood Count 4.41 M/mm3 (4.60-6.20); Red Cell Distribution Width 13.9 % (11.5-17.5); White Blood Count 15.5 K/mm3 (4.8-10.8)
[2020-01-15 08:56] LABS: Anion Gap 14.2 mEq/L (5-15); Calcium 9.5 mg/dl (8.4-10.2)
[2020-01-15 09:40] LABS: Lymphocytes % 4 % (10-50); Monocytes % 3 % (2-9); Neutrophils % 93 % (42-76); Total Cells Counted 100
--- NOTE | 2020-01-15 19:14 | Electrocardiograph Report ---
APPROVED REPORT Exam: Resting ECG HR:126 bpm ECG Measurements Heart Rate 126 AXES PA 168 P 26 QRSd 80 QRS -4 QT 286 T13 QTc 414 <Conclusion> Sinus tachycardia Low voltage QRS Borderline ECG Electronically signed by : Ari Mcbride, 01/15/2020 19:13:50
--- NOTE | 2020-01-16 09:00 | Progress Note ---
Internal Medicine - PN: Subj *Date: 01/16/20 *Time: 08:59 Interval history: No new complaints. Did not sleep well because of noise in the hallway. Denies increased shortness of breath. No chest pain this morning. Cough is nonproductive. Exam Vital signs and Labs for Last 24 Hours: Temp Pulse Resp BP Pulse Ox 97.7 F 92 H 17 134/62 93 L 01/16/20 08:00 01/16/20 08:00 01/16/20 08:00 01/16/20 08:00 01/16/20 08:00 Laboratory Results - last 24 hr 01/15/20 08:17: Total Counted 100, Neutrophils % (Manual) 93 H, Lymphocytes % (Manual) 4 L, Monocytes % (Manual) 3, Platelet Estimate Normal, Poikilocytosis 1+, [place] Cells 1+ 01/15/20 08:17: Carbon Dioxide 23, Anion Gap 14.2, BUN 25 H D, Creatinine 1.00, Estimated Creat Clear 86, Estimated GFR 74, Est GFR ( Amer) 89, Glucose 351 H D, Calcium 9.5 01/15/20 10:49: POC Glucose 348 H* 01/15/20 15:47: POC Glucose 264 H 01/15/20 20:24: POC Glucose 367 H* 01/16/20 05:09: POC Glucose 231 H I & O for Last 24 hours: Intake & Output 01/13/20 01/14/20 01/15/20 01/16/20 11:59 11:59 11:59 11:59 Intake Total 1743 / 1743 2620 / 2620 Output Total 450 / 450 Balance 1293 / 1293 2620 / 2620 Weight 197 lb 7.982 oz 202 lb 5 oz Microbiology Reports for the Last 24 Hours: Microbiology 01/14/20 13:45 Sputum - Expectorated Sputum Gram Stain - Final 01/14/20 13:45 Sputum - Expectorated Sputum Sputum Culture - Preliminary Gram Negative Rods Narrative: Alert and oriented. No respiratory distress. Color is normal. Lungs are clear anteriorly. Few crackles in the bases. No wheezes. Abdomen soft and nondistended with no tenderness. Extremities no edema. Assessment and Plan (1) Community acquired pneumonia Problem details: D/T E. Coli Current visit: Yes Status: Acute Qualifiers: Laterality: left Lung location: lower lobe of lung Qualified Code(s): J18.9 - Pneumonia, unspecified organism Category: Medical Code(s): J18.9 - Pneumonia, unspecified organism (2) Sepsis Current visit: Yes Status: Acute Qualifiers: Sepsis type: sepsis due to unspecified organism Sepsis acute organ dysfunction status: without acute organ dysfunction Qualified Code(s): A41.9 - Sepsis, unspecified organism Category: Medical Code(s): A41.9 - Sepsis, unspecified organism (3) Acute exacerbation of chronic obstructive airways disease Current visit: No Status: Acute Category: Medical Code(s): J44.1 - Chronic obstructive pulmonary disease with (acute) exacerbation (4) Elevated troponin Current visit: No Status: Acute Category: Medical Code(s): R74.8 - Abnormal levels of other serum enzymes (5) ASCVD (arteriosclerotic cardiovascular disease) Current visit: No Status: Chronic Category: Medical Code(s): I25.10 - Atherosclerotic heart disease of [place] coronary artery without angina pectoris (6) COPD (chronic obstructive pulmonary disease) Current visit: No Status: Chronic Category: Medical Code(s): J44.9 - Chronic obstructive pulmonary disease, unspecified (7) Hyperlipidemia Current visit: No Status: Chronic Category: Medical Code(s): E78.5 - Hyperlipidemia, unspecified (8) Hypertension Current visit: No Status: Chronic Category: Medical Code(s): I10 - Essential (primary) hypertension (9) Type 2 diabetes mellitus Current visit: No Status: Chronic Category: Medical Code(s): E11.9 - Type 2 diabetes mellitus without complications - Assessment and plan all Dx Assessment and Plan for all problems:: Repeat chest x-ray today. Continue antibiotics pending cultures. D/c IVF. Wean O2 to 2 liters. Encourage activity.
[2020-01-16 10:37] LABS: Basophils % 0.2 % (0.1-2.0); Eosinophils # 0.1 K/mm3 (0.0-0.4); Eosinophils % 0.4 % (0.1-12.0); Hematocrit 37.7 % (42.0-52.0); Hemoglobin 12.5 g/dL (14.1-18.0); Lymphocytes # 0.7 K/mm3 (0.7-4.5); Lymphocytes % 5.3 % (10-50); Mean Corpuscular Volume 93.8 fl (80-94); Mean Platelet Volume 11.3 fl (7.4-10.4); Monocytes # 1.3 K/mm3 (0.1-1.0); Monocytes % 9.8 % (1.7-9.3); Neutrophils # 11.4 K/mm3 (1.8-7.8); Neutrophils % 84.2 % (37.0-80.0); Platelet Count 237 K/mm3 (142-424); Red Blood Count 4.02 M/mm3 (4.60-6.20); Red Cell Distribution Width 14.1 % (11.5-17.5); White Blood Count 13.5 K/mm3 (4.8-10.8)
[2020-01-16 10:51] LABS: Anion Gap 16.1 mEq/L (5-15)
[2020-01-17 06:23] LABS: Basophils % 0.1 % (0.1-2.0); Eosinophils % 0.1 % (0.1-12.0); Hematocrit 38.7 % (42.0-52.0); Hemoglobin 12.3 g/dL (14.1-18.0); Lymphocytes # 0.7 K/mm3 (0.7-4.5); Lymphocytes % 5.5 % (10-50); Mean Corpuscular HGB Conc 31.9 g/dL (31.8-35.4); Monocytes # 0.7 K/mm3 (0.1-1.0); Monocytes % 5.3 % (1.7-9.3); Platelet Count 295 K/mm3 (142-424); Red Blood Count 4.08 M/mm3 (4.60-6.20); White Blood Count 12.3 K/mm3 (4.8-10.8)
--- NOTE | 2020-01-17 08:31 | Progress Note ---
<Nancy Freedman - Last Filed: 01/17/20 08:31> Internal Medicine - PN: Subj *Date: 01/17/20 *Time: 08:31 Interval history: Patient states he is going home today regardless. He has not slept since he has been here. He states he has a nonproductive cough. He feels his breathing is better. He states he has home O2 and nebulizer. He is eating without difficulty. Sputum results revealed E. coli pansensitive. Blood cultures with no growth after 24 hours. CBC with a white blood cell count of 12,300 Exam Vital signs and Labs for Last 24 Hours: Temp Pulse Resp BP Pulse Ox 97.6 F 102 H 20 158/76 H 92 L 01/17/20 04:00 01/17/20 06:32 01/17/20 04:00 01/17/20 04:00 01/17/20 06:32 Laboratory Results - last 24 hr 01/16/20 10:00: WBC 13.5 H, RBC 4.02 L, Hgb 12.5 L, Hct 37.7 L, MCV 93.8, MCH 31.0, MCHC 33.0, RDW 14.1, Plt Count 237, MPV 11.3 H, Neut % (Auto) 84.2 H, Lymph % (Auto) 5.3 L, [place] % (Auto) 9.8 H, Eos % (Auto) 0.4, Baso % (Auto) 0.2, Neut # (Auto) 11.4 H, Lymph # (Auto) 0.7, [place] # (Auto) 1.3 H, Eos # (Auto) 0.1, Baso # (Auto) 0.0 01/16/20 10:00: Sodium 142, Potassium 5.1 D, Chloride 109 H, Carbon Dioxide 22, Anion Gap 16.1 H, BUN 35 H D, Creatinine 0.80, Estimated Creat Clear 88, Estimated GFR 95, Est GFR ( Amer) 115 D, Glucose 370 H, Calcium 9.0 01/16/20 11:07: POC Glucose 305 H* 01/16/20 16:24: POC Glucose 372 H* 01/16/20 20:25: POC Glucose 412 H* 01/17/20 05:41: POC Glucose 280 H 01/17/20 05:46: WBC 12.3 H, RBC 4.08 L, Hgb 12.3 L, Hct 38.7 L, MCV 95.0 H, MCH 30.3, MCHC 31.9, RDW 14.0, Plt Count 295, MPV 9.0, Neut % (Auto) 89.0 H, Lymph % (Auto) 5.5 L, [place] % (Auto) 5.3, Eos % (Auto) 0.1, Baso % (Auto) 0.1, Neut # (Auto) 11.0 H, Lymph # (Auto) 0.7, [place] # (Auto) 0.7, Eos # (Auto) 0.0, Baso # (Auto) 0.0 I & O for Last 24 hours: Intake & Output 01/14/20 01/15/20 01/16/20 01/17/20 11:59 11:59 11:59 11:59 Intake Total 1743 / 1743 2620 / 2620 730 / 730 Output Total 450 / 450 Balance 1293 / 1293 2620 / 2620 730 / 730 Weight 197 lb 7.982 oz 202 lb 5 oz 205 lb 8 oz Microbiology Reports for the Last 24 Hours: Microbiology 01/14/20 13:45 Sputum - Expectorated Sputum Gram Stain - Final 01/14/20 13:45 Sputum - Expectorated Sputum Sputum Culture - Final Escherichia coli 01/14/20 13:25 Blood Blood Culture - Preliminary NO GROWTH AFTER 48 HOURS 01/14/20 13:25 Blood Blood Culture - Preliminary NO GROWTH AFTER 48 HOURS - Constitutional no acute distress - *Routine Respiratory Exam Present: decreased breath sounds (Posteriorly), CTA bilaterally (Anteriorly and posteriorly) - *Routine Cardiovascular Exam Present: RRR - *Routine Extremities Exam Absent: edema, calf tenderness - *Routine Neurological Exam Present: alert, oriented X3 Assessment and Plan (1) Community acquired pneumonia Problem details: D/T E. Coli Status: Acute Qualifiers: Laterality: left Lung location: lower lobe of lung Qualified Code(s): J18.9 - Pneumonia, unspecified organism Category: Medical Code(s): J18.9 - Pneumonia, unspecified organism (2) Sepsis Status: Acute Qualifiers: Sepsis type: sepsis due to unspecified organism Sepsis acute organ dysfunction status: without acute organ dysfunction Qualified Code(s): A41.9 - Sepsis, unspecified organism Category: Medical Code(s): A41.9 - Sepsis, unspecified organism (3) Acute exacerbation of chronic obstructive airways disease Status: Acute Category: Medical Code(s): J44.1 - Chronic obstructive pulmonary disease with (acute) exacerbation (4) Elevated troponin Status: Acute Category: Medical Code(s): R74.8 - Abnormal levels of other serum enzymes (5) ASCVD (arteriosclerotic cardiovascular disease) Status: Chronic Category: Medical Code(s): I25.10 - Atherosclerotic heart disease of [place] coronary artery without angina pectoris (6) COPD (chronic obstructive pulmonary disease) Status: Chronic Category: Medical Code(s): J44.9 - Chronic obstructive pulmo nary disease, unspecified (7) Hyperlipidemia Status: Chronic Category: Medical Code(s): E78.5 - Hyperlipidemia, unspecified (8) Hypertension Status: Chronic Category: Medical Code(s): I10 - Essential (primary) hypertension (9) Type 2 diabetes mellitus Status: Chronic Category: Medical Code(s): E11.9 - Type 2 diabetes mellitus without complications - Assessment and plan all Dx Assessment and Plan for all problems:: Patient will be discharged home on Ceftin. He will follow-up with Dr. Branch on 01/20/2020. <Michael Branch - Last Filed: 01/17/20 12:11> Internal Medicine - PN: Subj *Date: 01/17/20 *Time: 12:10 Exam Vital signs and Labs for Last 24 Hours: Temp Pulse Resp BP Pulse Ox 97.8 F 109 H 20 168/69 H 91 L 01/17/20 08:00 01/17/20 08:00 01/17/20 08:00 01/17/20 08:00 01/17/20 08:00 Laboratory Results - last 24 hr 01/16/20 16:24: POC Glucose 372 H* 01/16/20 20:25: POC Glucose 412 H* 01/17/20 05:41: POC Glucose 280 H 01/17/20 05:46: WBC 12.3 H, RBC 4.08 L, Hgb 12.3 L, Hct 38.7 L, MCV 95.0 H, MCH 30.3, MCHC 31.9, RDW 14.0, Plt Count 295, MPV 9.0, Neut % (Auto) 89.0 H, Lymph % (Auto) 5.5 L, [place] % (Auto) 5.3, Eos % (Auto) 0.1, Baso % (Auto) 0.1, Neut # (Auto) 11.0 H, Lymph # (Auto) 0.7, [place] # (Auto) 0.7, Eos # (Auto) 0.0, Baso # (Auto) 0.0, Total Counted 100, Neutrophils % (Manual) 89 H, Lymphocytes % (Manual) 9 L, Monocytes % (Manual) 2, Platelet Estimate Normal, RBC Morphology Normal 01/17/20 11:02: POC Glucose 345 H* I & O for Last 24 hours: Intake & Output 01/15/20 01/16/20 01/17/20 01/18/20 11:59 11:59 11:59 11:59 Intake Total 1743 / 1743 2620 / 2620 1090 / 1090 Output Total 450 / 450 Balance 1293 / 1293 2620 / 2620 1090 / 1090 Weight 197 lb 7.982 oz 202 lb 5 oz 205 lb 8 oz Microbiology Reports for the Last 24 Hours: Microbiology 01/14/20 13:45 Sputum - Expectorated Sputum Gram Stain - Final 01/14/20 13:45 Sputum - Expectorated Sputum Sputum Culture - Final Escherichia coli 01/14/20 13:25 Blood Blood Culture - Preliminary NO GROWTH AFTER 48 HOURS 01/14/20 13:25 Blood Blood Culture - Preliminary NO GROWTH AFTER 48 HOURS Assessment and Plan (1) Community acquired pneumonia Problem details: D/T E. Coli Status: Acute Qualifiers: Laterality: left Lung location: lower lobe of lung Qualified Code(s): J18.9 - Pneumonia, unspecified organism Category: Medical Code(s): J18.9 - Pneumonia, unspecified organism (2) Sepsis Status: Acute Qualifiers: Sepsis type: sepsis due to unspecified organism Sepsis acute organ dysfunction status: without acute organ dysfunction Qualified Code(s): A41.9 - Sepsis, unspecified organism Category: Medical Code(s): A41.9 - Sepsis, unspecified organism (3) Acute exacerbation of chronic obstructive airways disease Status: Acute Category: Medical Code(s): J44.1 - Chronic obstructive pulmonary disease with (acute) exacerbation (4) Elevated troponin Status: Acute Category: Medical Code(s): R74.8 - Abnormal levels of other serum enzymes (5) ASCVD (arteriosclerotic cardiovascular disease) Status: Chronic Category: Medical Code(s): I25.10 - Atherosclerotic heart disease of [place] coronary artery without angina pectoris (6) COPD (chronic obstructive pulmonary disease) Status: Chronic Category: Medical Code(s): J44.9 - Chronic obstructive pulmonary disease, unspecified (7) Hyperlipidemia Status: Chronic Category: Medical Code(s): E78.5 - Hyperlipidemia, unspecified (8) Hypertension Status: Chronic Category: Medical Code(s): I10 - Essential (primary) hypertension (9) Type 2 diabetes mellitus Status: Chronic Category: Medical Code(s): E11.9 - Type 2 diabetes mellitus without complications - Assessment and plan all Dx Assessment and Plan for all problems:: Patient seen and examined this AM. He is feeling better and insistent on going home. He states he cannot rest in the hospital. He denies shortness of breath. He has only minimal cough that is nonproductive. He is clinically and subjectively improved. He is stable for discharge with continued antibiotics and steroids at home.
[2020-01-17 09:16] LABS: Lymphocytes % 9 % (10-50); Monocytes % 2 % (2-9); Neutrophils % 89 % (42-76); RBC Morphology Normal; Total Cells Counted 100
--- NOTE | 2020-01-17 11:59 | Electrocardiograph Report ---
APPROVED REPORT Exam: Resting ECG HR:107 bpm ECG Measurements Heart Rate 107 AXES [place] 170 P 90 QRSd 74 QRS 30 QT 354 T32 QTc 472 <Conclusion> Sinus tachycardia Low voltage QRS Poor R Wave Progression Abnormal ECG Electronically signed by : Ari Mcbride, 01/17/2020 11:59:04
--- NOTE | 2020-01-17 14:07 | Discharge Summary ---
General - General Admission date:: 01/14/20 <Michael Branch - 01/29/20 08:44> 01/14/20 <Silvana Meredith - 01/17/20 14:08> Discharge date: 01/17/20 <ViriSilvana - 01/17/20 14:08> HPI HPI: Mr. Umaña is a 69-year-old male with a history of hypertension, hyperlipidemia, oxygen dependent COPD, ASCVD, and type 2 diabetes who began feeling poorly on Friday. His states he began getting more short of breath and coughing. He became more more lethargic and was unable to eat or drink. He had some diarrhea for the past 3 days. He normally has home oxygen at 2 L/min and he does duonebs as well. He developed a fever of 103 and was brought to the emergency room for evaluation. His white blood cell count was elevated, his potassium was low, his troponin was slightly elevated, his flu test came back negative, but a chest x-ray revealed a left lower lobe pneumonia. He was admitted and started on duo nebs, Zithromax and Rocephin, steroids, IV fluids, and some of his home medications. <ViriSilvana - 01/17/20 14:08> Hospital Course Hospital Course: The patient did state his breathing improved after he was given medication in the emergency room. His troponin was elevated, but he denied any chest pain. Oxygen saturations were satisfactory and he was continued on Zithromax, Rocephin, duo nebs, steroids, and IV fluids. He did have a few episodes of shortness of breath when he was up to the bathroom, but these were relieved with aerosol treatments. His blood sugars were elevated likely due to steroid use. He was placed on sliding scale for coverage. He did begin feeling better and had a repeat chest x-ray showing a bilateral lower lobe pneumonia slightly improved on the left and slightly worse on the right. His oxygen was weaned down to 2 L and activity was encouraged. He did not sleep well while in the hospital and wanted to be discharged home. His shortness of breath improved and he continued with a nonproductive cough. His sputum results revealed pansensitive E. coli and his blood culture showed no growth. His white blood cell count had decreased. He was stable to be discharged home on Ceftin and steroids and will follow-up with Dr. Branch in the office of [facility]. <Silvana Meredith - 01/17/20 14:08> Objective Vital signs: Temp Pulse Resp BP Pulse Ox 97.8 F 109 H 20 168/69 H 91 L 01/17/20 08:00 01/17/20 08:00 01/17/20 08:00 01/17/20 08:00 01/17/20 08:00 <Michael Branch - 01/29/20 08:44> Temp Pulse Resp BP Pulse Ox 97.8 F 109 H 20 168/69 H 91 L 01/17/20 08:00 01/17/20 08:00 01/17/20 08:00 01/17/20 08:00 01/17/20 08:00 <Silvana Meredith - 01/17/20 14:08> Narrative: - Constitutional no acute distress - *Routine Respiratory Exam Present: decreased breath sounds (Posteriorly), CTA bilaterally (Anteriorly and posteriorly) - *Routine Cardiovascular Exam Present: RRR - *Routine Extremities Exam Absent: edema, calf tenderness - *Routine Neurological Exam Present: alert, oriented X3 <Silvana Meredith - 01/17/20 14:08> Results Labs on day of discharge: Labs from last 24 hours 01/17/20 01/17/20 01/17/20 11:02 05:46 05:41 WBC 12.3 H RBC 4.08 L Hgb 12.3 L Hct 38.7 L MCV 95.0 H MCH 30.3 MCHC 31.9 RDW 14.0 Plt Count 295 MPV 9.0 Neut % (Auto) 89.0 H Lymph % (Auto) 5.5 L Churchill % (Auto) 5.3 Eos % (Auto) 0.1 Baso % (Auto) 0.1 Neut # (Auto) 11.0 H Lymph # (Auto) 0.7 Churchill # (Auto) 0.7 Eos # (Auto) 0.0 Baso # (Auto) 0.0 Total Counted 100 Neutrophils % (Manual) 89 H Lymphocytes % (Manual) 9 L Monocytes % (Manual) 2 Platelet Estimate Normal RBC Morphology Normal POC Glucose 345 H* 280 H 01/16/20 01/16/20 20:25 16:24 WBC RBC Hgb Hct MCV MCH MCHC RDW Plt Count MPV Neut % (Auto) Lymph % (Auto) Churchill % (Auto) Eos % (Auto) Baso % (Auto) Neut # (Auto) Lymph # (Auto) Churchill # (Auto) Eos # (Auto) Baso # (Auto) Total Counted Neutrophils % (Manual) Lymphocytes % (Manual) Monocytes % (Manual) Platelet Estimate RBC Morphology POC Glucose 412 H* 372 H* Preliminary micro results at discharge 01/14/20 13:25 Blood Culture - Preliminary Blood NO GROWTH AFTER 48 HOURS 01/14/20 13:25 Blood Culture - Preliminary Blood NO GROWTH AFTER 48 HOURS <Silvana Meredith - 01/17/20 14:08> DS: Diagnosis - Discharge Diagnosis (1) Community acquired pneumonia Status: Acute Problem details: D/T E. Coli (2) Sepsis Status: Acute (3) Acute exacerbation of chronic obstructive airways disease Status: Acute (4) Elevated troponin Status: Acute (5) ASCVD (arteriosclerotic cardiovascular disease) Status: Chronic (6) COPD (chronic obstructive pulmonary disease) Status: Chronic (7) Hyperlipidemia Status: Chronic (8) Hypertension Status: Chronic (9) Type 2 diabetes mellitus Status: Chronic <Silvana Meredith - 01/17/20 14:04> (1) Community acquired pneumonia Status: Acute Problem details: D/T E. Coli (2) Sepsis Status: Acute (3) Acute exacerbation of chronic obstructive airways disease Status: Acute (4) Elevated troponin Status: Acute (5) ASCVD (arteriosclerotic cardiovascular disease) Status: Chronic (6) COPD (chronic obstructive pulmonary disease) Status: Chronic (7) Hyperlipidemia Status: Chronic (8) Hypertension Status: Chronic (9) Type 2 diabetes mellitus Status: Chronic <Michael Branch - 01/29/20 08:44> Discharge Plan - Patient Discharge Instructions ACTIVITY: Continue current activity <Silvana Meredith - 01/17/20 14:08> DIET: continue same diet <Silvana Meredith - 01/17/20 14:08> Patient Instructions: DI for Pneumonia -- Adult, DI for Sepsis -- Adult <Michael Branch - 01/29/20 08:44> Forms: <Michael Branch - 01/29/20 08:44> - Follow up Plan Follow up with: Michael Branch MD [Staff Physician] - 01/20/20 10:15 am (in [place] office ) <Michael Branch - 01/29/20 08:44> Disposition: Home, Self-Care <Michael Branch - 01/29/20 08:44> Home Medications: Home Medications Medication Instructions Recorded Confirmed Type Albuterol Sulfate [Proair Hfa 2 puffs IH Q6HP PRN 03/05/18 01/14/20 History 90mcg/puff Inh] Aspirin [Aspir-Low] 81 mg PO DAILY 03/05/18 01/14/20 History Doxazosin Mesylate [Doxazosin 2mg 2 mg PO DAILY 03/05/18 01/14/20 History Tab] Garlic 1 tab PO DAILY 03/05/18 01/14/20 History Glimepiride [Amaryl] 6 mg PO DAILY 03/05/18 01/14/20 History Ipratropium/Albuterol Sulfate 3 ml IH Q6HP PRN 03/05/18 01/14/20 History [Duoneb 3mL neb] Pravastatin Sodium [Pravachol 40mg 40 mg PO HS 03/05/18 01/14/20 History Tablet] lisinopriL [Lisinopril 40mg Tablet] 40 mg PO DAILY 03/05/18 01/14/20 History Furosemide [Lasix 40mg tablet] 20 mg PO HS 01/14/20 01/14/20 History Furosemide [Lasix 40mg tablet] 40 mg PO DAILY 01/14/20 01/14/20 History Isosorbide Mononitrate [Imdur 30mg 30 mg PO DAILY 01/14/20 01/14/20 History ER tablet] Metformin HCl [Metformin HCl ER] 1,000 mg PO DAILY 01/14/20 01/14/20 History Metoprolol Tartrate [Lopressor 50 mg PO BID 01/14/20 01/14/20 History 50mg tablet] Fluticasone Propionate [Flonase 1 spr NS DAILY 01/15/20 01/15/20 History 50mcg nasal spray 16gm] cefUROXime axetiL [Ceftin 500mg 500 mg PO BID #14 tab 01/17/20 Rx Tab (GEQ)] methylPREDNISolone [Medrol 4mg 4 mg PO DIRECTED #21 tab 01/17/20 Rx tab] L.acidoph,Paracasei, B.lactis 1 each PO DAILY #30 cap 01/26/20 Rx [Probiotic] Omeprazole Magnesium [Prilosec Otc 20 mg PO DAILY #30 tab 01/26/20 Rx 20mg Tab] ondansetron HCL [Zofran 4mg Tab*] 4 mg PO Q6HP PRN 3 Days #12 tab 01/26/20 Rx <Michael Branch - 01/29/20 08:44> Prescriptions/Medication Reconciliation: New cefUROXime axetiL [Ceftin 500mg Tab (GEQ)] 500 mg PO BID #14 tab methylPREDNISolone [Medrol 4mg tab] 4 mg PO DIRECTED #21 tab Continued Pravastatin Sodium [Pravachol 40mg Tablet] 40 mg PO HS Glimepiride [Amaryl] 6 mg PO DAILY Doxazosin Mesylate [Doxazosin 2mg Tab] 2 mg PO DAILY Aspirin [Aspir-Low] 81 mg PO DAILY Garlic 1 tab PO DAILY Metoprolol Tartrate [Lopressor 50mg tablet] 50 mg PO BID Metformin HCl [Metformin HCl ER] 1,000 mg PO DAILY lisinopriL [Lisinopril 40mg Tablet] 40 mg PO DAILY Ipratropium/Albuterol Sulfate [Duoneb 3mL neb] 3 ml IH Q6HP PRN PRN Reason: Shortness Of Breath Albuterol Sulfate [Proair Hfa 90mcg/puff Inh] 2 puffs IH Q6HP PRN PRN Reason: Shortness Of Breath Isosorbide Mononitrate [Imdur 30mg ER tablet] 30 mg PO DAILY Furosemide [Lasix 40mg tablet] 40 mg PO DAILY Furosemide [Lasix 40mg tablet] 20 mg PO HS Fluticasone Propionate [Flonase 50mcg nasal spray 16gm] 1 spr NS DAILY No Action ondansetron HCL [Zofran 4mg Tab*] 4 mg PO Q6HP PRN 3 Days #12 tab PRN Reason: Nausea Omeprazole Magnesium [Prilosec Otc 20mg Tab] 20 mg PO DAILY #30 tab L.acidoph,Paracasei, B.lactis [Probiotic] 1 each PO DAILY #30 cap <Michael Branch - 01/29/20 08:44> - Problem Reconciliation Problems Reviewed?: Yes <Michael Branch - 01/29/20 08:44> Yes <Silvana Meredith - 01/17/20 14:08> - Additional Information Additional Information: Concur with plan for discharge as outlined above. <Michael Branch - 01/29/20 08:44>
== END 2020-01-17 11:10 | disposition home or self-care (01) | DRG 177 ==
LOC: ER 12:52 → 2ND 14:12
PROVIDERS: ADMIT Family Medicine; ATTEND Family Medicine
CPT/HCPCS: 36415; 71010; 71020; 71045; 71046; 73030; 80048; 80053; 82803; 82962; 83605; 84484; 85007; 85025; 87040; 87070; 87077; 87186; 87205; 87275; 87276; 93005; 94640; 94761; 96365; 96375; 99285; J0456; J2405

== ENCOUNTER → 2020-04-19 15:08 | Outpatient (CLI) | payer MEDICARE, SELFPAY ==
[2020-04-19 15:27] LABS: Adenovirus F 40/41, stool Not Detected (NotDetected); Astrovirus Not Detected (NotDetected); Campylobacter Not Detected (NotDetected); Clostridium Difficile A/B, PCR Not Detected (NotDetected); Cryptosporidium Not Detected (NotDetected); Cyclospora Cayetanesis Not Detected (NotDetected); Entamoeba histolytica Not Detected (NotDetected); Enteroaggregative E coli Not Detected (NotDetected); Enteropathogenic E coli Not Detected (NotDetected); Enterotoxigenic E coli Not Detected (NotDetected); Giardia lamblia Not Detected (NotDetected); Norovirus Not Detected (NotDetected); Plesimonas Shigalloides, PCR Not Detected (NotDetected); Rotavirus A Not Detected (NotDetected); Salmonella, PCR Not Detected (NotDetected); Sapovirus Not Detected (NotDetected); Shiga-like toxin E coli Not Detected (NotDetected); Shigella Enterovasive E coli Not Detected (NotDetected); Vibrio Cholerae Not Detected (NotDetected); Vibrio, PCR Not Detected (NotDetected); Yersinia Entercolitica, PCR Not Detected (NotDetected)
[2020-04-19 16:28] LABS: Occult Blood,Stool Positive (Negative)
== END ==
PROVIDERS: Visit Provider Nurse Practitioner
DX: R19.7 Diarrhea, unspecified (principal); K92.1 Melena
CPT/HCPCS: 82272; 87045; 87177; 87507; G0328

== ENCOUNTER → 2020-05-17 08:30 | Outpatient (CLI) | payer MEDICARE, SELFPAY ==
--- NOTE | 2020-05-17 08:38 | US_ITS ---
PROCEDURE: US ABDOMEN LIMITED CLINICAL INDICATION: ABD PAIN COMPARISON: No exams were available for comparison FINDINGS: PANCREAS: Unremarkable. No obvious mass or abnormal fluid collection. No ductal dilatation LIVER: No focal liver lesions demonstrated. Homogeneous echogenicity. No intrahepatic biliary ductal dilatation evident. There is appropriate direction of blood flow within a non dilated portal vein RIGHT KIDNEY: Small right renal cyst measuring 18 mm. No hydronephrosis GALLBLADDER: No gallstones, gallbladder wall thickening, pericholecystic fluid, or biliary dilatation. IMPRESSION: Unremarkable limited abdominal ultrasound as detailed above disc Dictated by: Mohan Graham MD 05/17/2020 16:07 Electronically signed by Mohan Graham MD in [place] 05/17/2020 16:07
== END ==
PROVIDERS: PCP Family Medicine; Visit Provider Family Medicine
DX: R10.11 Right upper quadrant pain (principal)
CPT/HCPCS: 76705

== ENCOUNTER → 2020-06-01 09:14 | Outpatient (CLI) | payer MEDICARE, SELFPAY ==
--- NOTE | 2020-06-01 09:17 | CT_ITS ---
PROCEDURE: CT ABDOMEN PELVIS W CON CLINICAL INDICATION: GENERLIZED ABD PAIN, WEIGHT LOSS COMPARISON: CT ABDOMEN PELVIS W CON from 01/26/2020 TECHNIQUE: IV Contrast: 75ML OPTIRAY 350 Oral Contrast None Axial images obtained with sagittal and coronal reformats. All CT scans at the facility use one or more dose reduction, viz: automated exposure control, ma/kV adjustment per patient size (including targeted exams where dose is matched to indication, i.e. head), or iterative reconstruction technique. FINDINGS: LOWER THORAX: Coronary artery calcifications are present. ABDOMEN & PELVIS: The liver, gallbladder, spleen, and pancreas have an unremarkable appearance. There is mild enlargement of the left adrenal gland maintaining an adrenal form shape. This is not significantly changed. A small nodules present medial to the left adrenal gland and may be due to small lymph node at 12 mm not significantly changed. There are small bilateral renal cysts. Bilateral renal arterial calcification is noted. A 4 mm calcific density is present in the lower pole of the right kidney may be arterial or due to a nonobstructing stone. There is fusiform dilatation of the infrarenal abdominal aorta at 3.7 cm the by 3.1 cm not significantly changed. No intestinal obstruction or free air is evident. There are fluid-filled loops of small and large bowel with scattered air-fluid levels. No evidence of appendicitis or diverticulitis. No acute bony anomalies. IMPRESSION: 1. Fluid-filled loops of small and large bowel with air-fluid levels which may be seen with gastroenteritis/diarrhea disease. 2. Infrarenal abdominal aortic aneurysm at 3.7 x 3.1 cm Dictated by: Mohan Graham MD 06/02/2020 10:25 Electronically signed by Mohan Graham MD in [place] 06/02/2020 10:25
== END ==
PROVIDERS: PCP Family Medicine; Visit Provider Family Medicine
DX: R10.84 Generalized abdominal pain (principal); R63.4 Abnormal weight loss
CPT/HCPCS: 74177; Q9967

== ENCOUNTER 2020-06-03 13:06 | Observation (INO) | payer MEDICARE, SELFPAY ==
[2020-06-03] VITALS (8 sets, daily range): BP systolic 109–152; BP diastolic 63–90; PULSE 75–107; RESP 16–20; TEMP 36.5–36.7; O2SAT 94–100; BMI 27.4; BMI 26.5
[2020-06-03 15:02] LABS: Basophils % 0.2 % (0.1-2.0); Eosinophils # 0.2 K/mm3 (0.0-0.4); Eosinophils % 1.5 % (0.1-12.0); Hematocrit 43.6 % (42.0-52.0); Hemoglobin 14.7 g/dL (14.1-18.0); Lymphocytes # 1.5 K/mm3 (0.7-4.5); Lymphocytes % 10.8 % (10-50); Mean Corpuscular HGB Conc 33.8 g/dL (31.8-35.4); Mean Corpuscular Hemoglobin 31.2 pg (27.0-31.2); Mean Corpuscular Volume 92.4 fl (80-94); Mean Platelet Volume 8.4 fl (7.4-10.4); Monocytes # 0.4 K/mm3 (0.1-1.0); Monocytes % 2.8 % (1.7-9.3); Neutrophils # 12.1 K/mm3 (1.8-7.8); Neutrophils % 84.7 % (37.0-80.0); Platelet Count 403 K/mm3 (142-424); Red Blood Count 4.71 M/mm3 (4.60-6.20); Red Cell Distribution Width 13.5 % (11.5-17.5); White Blood Count 14.2 K/mm3 (4.8-10.8)
[2020-06-03 15:06] LABS: Chloride 97 mmol/L (98-107); Potassium 3.2 mmoL/L (3.5-5.1); Sodium 138 mmol/L (136-145)
[2020-06-03 15:08] LABS: Amylase 78 U/L (30-110); Blood Urea Nitrogen 44 mg/dl (9-20); Creatinine Clearance Estimated 34 mL/min (50-200); Estimated Glomerular Filt Rate 31 ml/min (>60); GFR (African American) 38 ML/MIN (>60)
[2020-06-03 15:09] LABS: Alanine Aminotransferase 35 U/L (12-78); Albumin Level 4.5 g/dl (3.5-5.0); Albumin/Globulin Ratio 1.2 (1.1-1.8); Alkaline Phosphatase 113 U/L (38-126); Anion Gap 23.2 mEq/L (5-15); Aspartate Amino Transferase 25 U/L (17-59); Bilirubin,Total 0.5 mg/dl (0.2-1.3); Calcium 10.6 mg/dl (8.4-10.2); Carbon Dioxide 21 mmol/L (22.0-30.0); Globulin 3.7 g/dL (1.3-3.2); Glucose 125 mg/dl (74-100); Lipase 68 U/L (23-300); Total Protein,Serum 8.2 g/dl (6.3-8.2)
--- NOTE | 2020-06-03 16:35 | PC.NURSE ---
notified ER MD of pt c/o abd pain, ER MD gave no new orders at this time, will continue to monitor
--- NOTE | 2020-06-03 17:56 | HMH.EDGENADL ---
ED Disposition Clinical Impression: Acute kidney injury, Dehydration, Hypokalemia, Chronic abdominal pain, Chronic vomiting, Chronic diarrhea Disposition: Admitted as Observation Condition on Discharge: Fair - Critical Care Critical Care Time: No Attestation: On 06/03/20, the high probability of a clinically significant, sudden or life threatening deterioration of the following system(s) required my full and direct attention, intervention and personal management. The time I documented below is in addition to time spent performing reported procedures but includes the following listed in this critical care notation. Medical Decision Making - Medical Records Medical records reviewed: Yes: I reviewed the patient's medical records. - Gigi Inquiry Pt receiving controlled substance: Yes Gigi was queried for this patient: No Reason not queried -: Emergent pt cond-no time Risks and benefits of using a controlled substance: were not discussed with pt by me Vital Signs: 06/03/20 14:11 06/03/20 16:34 06/03/20 17:00 Temperature 98.0 F Temperature Source Axillary Pulse Rate Pulse Rate [Left Brachial] 95 H 107 H Respiratory Rate 18 Blood Pressure Blood Pressure [Left Arm] 109/63 L 129/90 117/69 Blood Pressure Mean [Left Arm] 78 103 85 Blood Pressure Source Blood Pressure Source [Left Arm] Automatic Cuff Automatic Cuff Blood Pressure Position Blood Pressure Position [Left Arm] Sitting Sitting 02 Sat by Pulse Oximetry 96 99 100 Oxygen Delivery Method Nasal Cannula Nasal Cannula Oxygen Flow Rate (LPM) 2 2 06/03/20 17:30 06/03/20 18:42 06/03/20 19:00 Temperature Temperature Source Pulse Rate Pulse Rate [Left Brachial] 75 100 H 91 H Respiratory Rate 18 Blood Pressure Blood Pressure [Left Arm] 150/64 H 136/82 139/82 Blood Pressure Mean [Left Arm] 92 100 101 Blood Pressure Source Blood Pressure Source [Left Arm] Automatic Cuff Automatic Cuff Automatic Cuff Blood Pressure Position Blood Pressure Position [Left Arm] Supine Sitting Sitting 02 Sat by Pulse Oximetry 99 99 98 Oxygen Delivery Method Room Air Nasal Cannula Room Air Oxygen Flow Rate (LPM) 2 06/03/20 19:53 Temperature 98.0 F Temperature Source Oral Pulse Rate 92 H Pulse Rate [Left Brachial] Respiratory Rate 16 Blood Pressure 139/82 Blood Pressure [Left Arm] Blood Pressure Mean [Left Arm] Blood Pressure Source Automatic Cuff Blood Pressure Source [Left Arm] Blood Pressure Position Sitting Blood Pressure Position [Left Arm] 02 Sat by Pulse Oximetry Oxygen Delivery Method Room Air Oxygen Flow Rate (LPM) - Lab Data Lab results reviewed: Yes: I reviewed the patient's lab results. Lab Results 06/03/20 14:50: WBC 14.2 H, RBC 4.71, Hgb 14.7, Hct 43.6, MCV 92.4, MCH 31.2, MCHC 33.8, RDW 13.5, Plt Count 403, MPV 8.4, Neut % (Auto) 84.7 H, Lymph % (Auto) 10.8, Gibson % (Auto) 2.8, Eos % (Auto) 1.5, Baso % (Auto) 0.2, Neut # (Auto) 12.1 H, Lymph # (Auto) 1.5, Gibson # (Auto) 0.4, Eos # (Auto) 0.2, Baso # (Auto) 0.0 06/03/20 14:50: Sodium 138, Potassium 3.2 L, Chloride 97 L, Carbon Dioxide 21 L, Anion Gap 23.2 H, BUN 44 H, Creatinine 2.10 H, Estimated Creat Clear 34, Estimated GFR 31 L, Est GFR ( Amer) 38 L, Glucose 125 H, Calcium 10.6 H, Total Bilirubin 0.5, AST 25, ALT 35, Alkaline Phosphatase 113, Total Protein 8.2, Albumin 4.5, Globulin 3.7 H, Albumin/Globulin Ratio 1.2, Amylase 78, Lipase 68 Result diagrams: 06/03/20 14:50 06/03/20 14:50 Orders (Tests/Meds): ED MEDICATIONS Generic Name Dose Route Start Last Admin Trade Name Guy PRN Reason Stop Dose Admin Albuterol Sulfate 2 puffs 06/03/20 19:37 Proventil-Hfa 90mcg/Puff Inhaler 07/03/20 19:36 Q6HP PRN Shortness Of Breath Albuterol/Ipratropium 3 ml 06/03/20 19:37 Duoneb 3ml Neb 07/03/20 19:36 Q6HP PRN Shortness Of Breath Aspirin 81 mg 06/03/20 21:00 Aspirin 81mg Enteric Coated Tablet PO
--- NOTE | 2020-06-03 18:20 | ECG_ITS ---
APPROVED REPORT Exam: Resting ECG HR:94 bpm ECG Measurements Heart Rate 94 AXES NE 174 P 73 QRSd 74 QRS 47 QT 372 T 53 QTc 465 <Conclusion> Sinus rhythm with marked sinus arrhythmia Low voltage QRS Nonspecific T wave abnormality Prolonged QT Abnormal ECG Electronically signed by : Ben Strauss, 06/04/2020 06:36:03
--- NOTE | 2020-06-03 19:23 | PC.NURSE ---
shift change report given to alexirn
--- NOTE | 2020-06-03 19:44 | PC.NURSE ---
Addendum entered by Celina Rousseau CNA 06/03/20 19:47: CORRECTION - CORRECT TIME ARRIVAL TO THE FLOOR 1944 Original Note: PT ARRIVED TO FLOOR VIA STRETCHER FROM ED @ 191
[2020-06-03 21:45] LABS: POC Glucose,Bedside 91 (70-110)
[2020-06-04] VITALS (7 sets, daily range): BP systolic 133–148; BP diastolic 62–91; PULSE 58–107; RESP 17–20; TEMP 36.4–36.6; O2SAT 94–97; BMI 27.0
--- NOTE | 2020-06-04 04:33 | PC.NURSE ---
A&OX4. PT TOLERATING 2LNC WELL THIS SHIFT. PT HAS HAD NO C/O NA/VO/DI THIS SHIFT. PT REQUESTED PRN DUONEB, ADMINISTERED PER JAN. PT HAS BEEN RESTING IN BED WITH EYES CLOSED MAJORITY OF THIS SHIFT. NO C/O THUS FAR. VSS WILL CONTINUE TO MONITOR.
[2020-06-04 05:41] LABS: POC Glucose,Bedside 72 (70-110)
[2020-06-04 06:40] LABS: Anion Gap 14.7 mEq/L (5-15); Blood Urea Nitrogen 41 mg/dl (9-20); Carbon Dioxide 19 mmol/L (22.0-30.0); Chloride 109 mmol/L (98-107); Estimated Glomerular Filt Rate 54 ml/min (>60); GFR (African American) 66 ML/MIN (>60); Potassium 3.7 mmoL/L (3.5-5.1); Sodium 139 mmol/L (136-145)
[2020-06-04 07:03] LABS: Creatinine Clearance Estimated 54 mL/min (50-200)
[2020-06-04 07:04] LABS: Calcium 9.2 mg/dl (8.4-10.2); Glucose 53 mg/dl (74-100)
--- NOTE | 2020-06-04 09:20 | HMH.HP ---
*Admission Date: 06/03/20 *Chief complaint: Abdominal pain *History of present illness: Mr. Umaña is a 69-year-old white male who was hospitalized with pneumonia in January 2020. About a week after discharge, he began having abdominal pain and diarrhea which has persisted since then. His appetite is been poor and he has lost 40 pounds of weight since his admission here in January. He has been seen in the office on 6 occasions and in the ER at least twice. He has had multiple CT scans most recently 3 days ago showing fluid-filled loops of bowel in the small and large intestine with air-fluid levels consistent with enteritis. He has had diarrhea panels which have been negative. Antispasmodic medications have not helped his pain. No history of blood in the stool. No fever. He has had no vomiting. He was referred to Dr. Aragon about a month ago who recommended endoscopy but the patient has refused stating he does not want to be put to sleep . He returned to the emergency room yesterday because his pain became unbearable. Work-up in the emergency room showed an elevated BUN and creatinine and low potassium. His white count was elevated at 14,000. After a single dose of morphine and famotidine and starting IV fluids he states he is feeling much better this morning. [facility] History Medical History: Reports:: BPH, Chronic Obstructive Pulmonary Disease (COPD), Coronary Artery Disease, Diabetes Mellitus Type 2, Hyperlipidemia, Hypertension, Myocardial Infarction Denies:: Cancer, Diabetes Mellitus Type 1, Internal Pacemaker, MRSA *Have you ever received a pneumonia vaccine?: No *Have you received a flu vaccine this season?: No Other Surgeries: Yes: CABG (2005). No: Pacemaker Amputation: No Fractures: No - *Social History Last grade of school completed: GED Smoking Status: Former smoker Tobacco Type: cigarettes # Packs/Day (cigarettes): 2 #Yrs smoked (if former smoker): 56 Alcohol Intake: never Alcohol Intake Frequency:: a few times a month *Occupational Status:: retired Housing: house Household Members: spouse *Travel in the last 8 weeks: None Family Hx:: Cancer, Coronary Artery Disease, Heart Attack, Hyperlipidemia, Hypertension Review of Systems - Constitutional Reports body ache(s), Reports weight loss - Eyes Denies blurry vision - ENT Denies difficulty swallowing, Denies mouth lesions, Denies pain with swallowing - *Cardiovascular Reports shortness of breath with activity, Denies chest pain, Denies leg swelling, Denies rapid, pounding, or irregular heartbeat - *Respiratory Reports chest congestion, Denies coughing up blood, Denies wheezing - *Gastrointestinal Reports other (See HPI) - *Genitourinary Reports difficulty urinating - *Musculoskeletal Reports joint pain - Integumentary/Breasts Denies rash - *Neurologic Denies confusion, Denies seizure-like activity - Psychiatric Denies confusion, Denies memory loss - Endocrine Denies cold intolerance - Hematologic/Lymphatic Denies easy bruising - Allergic/Immunologic Denies itchy eyes Meds Home Medications Medication Instructions Recorded Confirmed Type Doxazosin Mesylate [Doxazosin 2mg 2 mg PO HS 03/05/18 06/03/20 History Tab] Glimepiride [Amaryl] 6 mg PO DAILY 03/05/18 06/04/20 History Ipratropium/Albuterol Sulfate 3 ml IH Q6HP PRN 03/05/18 06/03/20 History [Duoneb 3mL neb] Pravastatin Sodium [Pravachol 40mg 40 mg PO HS 03/05/18 06/03/20 History Tablet] lisinopriL [Lisinopril 40mg Tablet] 40 mg PO DAILY 03/05/18 06/03/20 History Furosemide [Lasix 40mg tablet] 20 mg PO HS 01/14/20 06/03/20 History Furosemide [Lasix 40mg tablet] 40 mg PO DAILY 01/14/20 06/03/20 History Isosorbide Mononitrate [Imdur 30mg 30 mg PO DAILY 01/14/20 06/03/20 History ER tablet] Metformin HCl [Metformin HCl ER] 1,000 mg PO DAILY 01/14/20 06/03/20 History Metoprolol Tartrate [Lopressor 50 mg PO BID 01/14/20 06/03/20 History 50mg tablet] Fl
[2020-06-04 11:51] LABS: POC Glucose,Bedside 85 (70-110)
--- NOTE | 2020-06-04 12:04 | HMH.PHAVTE ---
[facility] Pharmacy VTE Monitoring - Patient Demographics Admission date: 06/04/20 Report Date: 06/04/20 Time: 12:04 Allergies/Adverse Reactions: Patient Allergies No Known Allergies Allergy (Verified 04/28/20 14:04) Height: 1.65 m Weight: 73.624 kg Patient Problems: Current Active Problems Acute kidney injury (Acute) Dehydration (Acute) Hypokalemia (Acute) Chronic abdominal pain (Acute) Chronic vomiting (Acute) Chronic diarrhea (Acute) - VTE Risk Labs: VTE Related Lab Results Hgb 14.7 g/dL (14.1-18.0) 06/03/20 14:50 Hct 43.6 % (42.0-52.0) 06/03/20 14:50 Plt Count 403 K/mm3 (142-424) 06/03/20 14:50 BUN 41 mg/dl (9-20) H 06/04/20 05:15 Creatinine 1.30 mg/dl (0.66-1.25) H D 06/04/20 05:15 Estimated Creat Clear 54 mL/min (50-200) 06/04/20 05:15 VTE Score: 5 VTE Risk Level: Low Risk - Prophylaxis Types of VTE Prophylaxis: TEDS Knee High (ILENE HOSE ORDERED)
[2020-06-04 17:02] LABS: POC Glucose,Bedside 129 (70-110)
--- NOTE | 2020-06-04 17:47 | PC.NURSE ---
Pt reports feeling much better today. Denies pain and nausea. He is in enteric isolation due to diarrhea panel ordered. He is aware but has not had a bowel movement since around noon yesterday. He has ambulated to bathroom with standby assist. Remains at baseline on 2L NC. Home meds locked in drawer. Will continue to monitor.
[2020-06-04 21:11] LABS: POC Glucose,Bedside 110 (70-110)
[2020-06-05] VITALS (7 sets, daily range): BP systolic 145–171; BP diastolic 88–94; PULSE 78–101; RESP 16–19; TEMP 36.6–36.7; O2SAT 92–98; BMI 28.2
--- NOTE | 2020-06-05 01:37 | PC.NURSE ---
He is A&Ox4. He was frustrated at the beginning of the shift about being in contact eneteric precautions. Still awaiting a stool specimen. He reports that he has chronic diarrhea and that his MD is aware. He denies pain. He has ambulated to the bathroom independently with steady gait. He continues on 2LPM n/c of which he reports that he wears at home.
[2020-06-05 05:36] LABS: POC Glucose,Bedside 86 (70-110)
[2020-06-05 05:59] LABS: Basophils % 0.2 % (0.1-2.0); Eosinophils # 0.6 K/mm3 (0.0-0.4); Hematocrit 34.8 % (42.0-52.0); Hemoglobin 11.5 g/dL (14.1-18.0); Lymphocytes # 1.4 K/mm3 (0.7-4.5); Lymphocytes % 17.3 % (10-50); Mean Corpuscular Hemoglobin 30.3 pg (27.0-31.2); Mean Corpuscular Volume 91.8 fl (80-94); Mean Platelet Volume 7.9 fl (7.4-10.4); Monocytes # 0.5 K/mm3 (0.1-1.0); Monocytes % 5.5 % (1.7-9.3); Neutrophils # 5.8 K/mm3 (1.8-7.8); Neutrophils % 69.9 % (37.0-80.0); Platelet Count 259 K/mm3 (142-424); Red Blood Count 3.79 M/mm3 (4.60-6.20); Red Cell Distribution Width 13.5 % (11.5-17.5); White Blood Count 8.3 K/mm3 (4.8-10.8)
[2020-06-05 06:07] LABS: Chloride 114 mmol/L (98-107); Sodium 144 mmol/L (136-145)
[2020-06-05 06:08] LABS: Potassium 4.3 mmoL/L (3.5-5.1)
[2020-06-05 06:11] LABS: Anion Gap 11.3 mEq/L (5-15); Blood Urea Nitrogen 26 mg/dl (9-20); Calcium 9.3 mg/dl (8.4-10.2); Carbon Dioxide 23 mmol/L (22.0-30.0); Creatinine Clearance Estimated 67 mL/min (50-200); Estimated Glomerular Filt Rate 66 ml/min (>60); GFR (African American) 80 ML/MIN (>60); Glucose 83 mg/dl (74-100)
[2020-06-05 06:39] LABS: Thyroid Stimulating Hormone 0.66 uIU/mL (0.465-4.68)
--- NOTE | 2020-06-05 08:40 | HMH.ACPN2 ---
<Nancy Freedman - Last Filed: 06/05/20 08:40> Internal Medicine - PN: Subj *Date: 06/05/20 *Time: 08:40 Interval history: Pt states that he is better; thinks Pepcid was the siddiqui; was able to eat 3 times yesterday without nausea, vomiting, diarrhea or abdominal pain. He did not sleep last night and thinks because of his nerves. He is NPO this AM for GI consult. He denies CP and SOB Exam Vital signs and Labs for Last 24 Hours: Temp Pulse Resp BP Pulse Ox 98.1 F 98 H 16 159/92 H 95 06/05/20 03:57 06/05/20 06:17 06/05/20 03:57 06/05/20 03:57 06/05/20 03:57 Laboratory Results - last 24 hr 06/04/20 11:34: POC Glucose 85 06/04/20 16:50: POC Glucose 129 H 06/04/20 20:45: POC Glucose 110 06/05/20 05:17: POC Glucose 86 06/05/20 05:24: WBC 8.3 D, RBC 3.79 L, Hgb 11.5 L, Hct 34.8 L, MCV 91.8, MCH 30.3, MCHC 33.0, RDW 13.5, Plt Count 259 D, MPV 7.9, Neut % (Auto) 69.9, Lymph % (Auto) 17.3, [place] % (Auto) 5.5, Eos % (Auto) 7.0, Baso % (Auto) 0.2, Neut # (Auto) 5.8, Lymph # (Auto) 1.4, [place] # (Auto) 0.5, Eos # (Auto) 0.6 H, Baso # (Auto) 0.0 06/05/20 05:24: Sodium 144, Potassium 4.3, Chloride 114 H, Carbon Dioxide 23 D, Anion Gap 11.3, BUN 26 H D, Creatinine 1.10, Estimated Creat Clear 67, Estimated GFR 66, Est GFR ( Amer) 80 D, Glucose 83, Calcium 9.3, TSH 0.66 I & O for Last 24 hours: Intake & Output 06/02/20 06/03/20 06/04/20 06/05/20 11:59 11:59 11:59 11:59 Intake Total 3739 / 3739 3480 / 3480 Output Total 200 / 200 100 / 100 Balance 3539 / 3539 3380 / 3380 Weight 162 lb 5 oz 169 lb 9 oz - Constitutional no acute distress Comments: awakened for assessment - *Routine Respiratory Exam Comments: scattered crackles posteriorly - *Routine Cardiovascular Exam Present: RRR - *Routine Abdominal Exam Present: soft, normoactive bowel sounds. Absent: tenderness, distended - *Routine Extremities Exam Absent: edema, calf tenderness - *Routine Neurological Exam Present: alert, oriented X3 Assessment and Plan (1) Chronic abdominal pain Current visit: Yes Status: Acute Category: Medical Code(s): R10.9 - Unspecified abdominal pain; G89.29 - Other chronic pain (2) Weight loss Current visit: Yes Status: Acute Category: Medical Code(s): R63.4 - Abnormal weight loss (3) Dehydration Current visit: Yes Status: Acute Category: Medical Code(s): E86.0 - Dehydration (4) Acute renal insufficiency Current visit: Yes Status: Acute Category: Medical Code(s): N28.9 - Disorder of kidney and ureter, unspecified (5) Hypokalemia Current visit: Yes Status: Acute Category: Medical Code(s): E87.6 - Hypokalemia (6) COPD (chronic obstructive pulmonary disease) Current visit: No Status: Chronic Category: Medical Code(s): J44.9 - Chronic obstructive pulmonary disease, unspecified (7) Hyperlipidemia Current visit: No Status: Chronic Category: Medical Code(s): E78.5 - Hyperlipidemia, unspecified (8) Hypertension Current visit: No Status: Chronic Category: Medical Code(s): I10 - Essential (primary) hypertension (9) Type 2 diabetes mellitus Current visit: No Status: Chronic Category: Medical Code(s): E11.9 - Type 2 diabetes mellitus without complications (10) ASCVD (arteriosclerotic cardiovascular disease) Current visit: No Status: Chronic Category: Medical Code(s): I25.10 - Atherosclerotic heart disease of [place] coronary artery without angina pectoris - Assessment and plan all Dx Assessment and Plan for all problems:: for GI consult today <Michael Branch - Last Filed: 06/06/20 08:00> Internal Medicine - PN: Subj *Date: 06/06/20 *Time: 07:59 Exam Vital signs and Labs for Last 24 Hours: Temp Pulse Resp BP Pulse Ox 98.2 F 105 H 17 150/79 H 97 06/06/20 04:00 06/06/20 05:33 06/06/20 04:00 06/06/20 04:00 06/06/20 04:00 Laboratory Results - last 24 hr 06/05/20 11:59: POC G
--- NOTE | 2020-06-05 13:52 | HMH.GSCON ---
*Admission Date: 06/04/20 *Reason for consult:: Abdominal pain and weight loss *History of present illness: Patient is a 69-year-old male whom I am asked to see in consultation from Dr. Branch and gastroenterology. He is from [facility]. Patient states that since January when he was hospitalized with pneumonia he has had some abdominal pain and weight loss. He has had cramping abdominal pain with intermittent diarrhea and obstipation. Occasionally the pain is worsened after eating and occasionally improved with intake of certain foods. He is also had nausea and regurgitation versus vomiting. I had seen him as an outpatient consultation in April and scheduled him for colonoscopy however the patient states that he was fearful of being put to sleep and canceled the procedure. Couple of days ago he presented to the emergency department due to the severity of the pain. He was seen and evaluated. He had a CT scan on 06/01/2020 with IV and no oral contrast which revealed some air-fluid filled loops of small and large bowel possibly consistent with enterocolitis. This is similar to CT scan with IV and oral contrast performed in January of this year. He did have a stool diarrhea PCR panel which was negative for infectious etiology. Since admission he has had no diarrhea and no bowel movements in particular. Patient states that he does feel somewhat better and attributes this to the H2 blockers he has been on during his hospitalization. He has eaten a regular diet yesterday and today for breakfast and lunch. Review of Systems - Review of Systems Review of systems:: pertinent systems reviewed and negative unless documented below - *Neurologic Denies confusion, Denies memory loss, Denies seizure-like activity [facility] History Medical History: Reports:: BPH, Chronic Obstructive Pulmonary Disease (COPD), Coronary Artery Disease, Diabetes Mellitus Type 2, Hyperlipidemia, Hypertension, Myocardial Infarction Denies:: Cancer, Diabetes Mellitus Type 1, Internal Pacemaker, MRSA *Have you ever received a pneumonia vaccine?: No *Have you received a flu vaccine this season?: No Other Surgeries: Yes: CABG (2005), Other. No: Pacemaker Amputation: No Fractures: No - *Social History Last grade of school completed: GED Smoking Status: Former smoker Tobacco Type: cigarettes # Packs/Day (cigarettes): 2 #Yrs smoked (if former smoker): 56 Alcohol Intake: never Alcohol Intake Frequency:: a few times a month *Occupational Status:: retired Housing: house Household Members: spouse *Travel in the last 8 weeks: None Family Hx:: Cancer, Coronary Artery Disease, Heart Attack, Hyperlipidemia, Hypertension Meds Home Medications Medication Instructions Recorded Confirmed Type Doxazosin Mesylate [Doxazosin 2mg 2 mg PO HS 03/05/18 06/03/20 History Tab] Glimepiride [Amaryl] 6 mg PO DAILY 03/05/18 06/04/20 History Ipratropium/Albuterol Sulfate 3 ml IH Q6HP PRN 03/05/18 06/03/20 History [Duoneb 3mL neb] Pravastatin Sodium [Pravachol 40mg 40 mg PO HS 03/05/18 06/03/20 History Tablet] lisinopriL [Lisinopril 40mg Tablet] 40 mg PO DAILY 03/05/18 06/03/20 History Furosemide [Lasix 40mg tablet] 20 mg PO HS 01/14/20 06/03/20 History Furosemide [Lasix 40mg tablet] 40 mg PO DAILY 01/14/20 06/03/20 History Isosorbide Mononitrate [Imdur 30mg 30 mg PO DAILY 01/14/20 06/03/20 History ER tablet] Metformin HCl [Metformin HCl ER] 1,000 mg PO DAILY 01/14/20 06/03/20 History Metoprolol Tartrate [Lopressor 50 mg PO BID 01/14/20 06/03/20 History 50mg tablet] Fluticasone Propionate [Flonase 1 spr NS DAILY 01/15/20 06/03/20 History 50mcg nasal spray 16gm] Hyoscyamine Sulfate 0.125 mg PO QID 06/03/20 06/03/20 History L.acidoph,Paracasei, B.lactis 1 each PO DAILY 06/03/20 06/03/20 History [Probiotic] [id number]/Sod Sulf,Bicarb,Cl/KCl 240 ml PO DAILY 06/03/20 06/03/20 History [Golytely] Albuterol Sulfate [Albuterol 2 puffs IH Q6HP PRN 06/04/20 06/04/20 Histo
[2020-06-05 14:32] LABS: POC Glucose,Bedside 136 (70-110)
--- NOTE | 2020-06-05 14:58 | DIET.NUTRFU ---
Nutritional assessment, IP completed by student Jenn Gregory under my direct supervision. Pt at risk for malnutrition rt significant unintentional weight loss past 4 months. Counseling for meeting needs with low appetite/taste changes given and protein supplements provided bid.
--- NOTE | 2020-06-05 15:53 | PC.NURSE ---
Pt has rested well this shift, has not had any further nausea or vomiting, tolerated bland diet well, plan for EGD in am, will be NPO after midnight, remains on 2LNC of which is home dependent, alert and oriented x4, perrla, has no had a BM this shift, vss, will continue to monitor for changes.
[2020-06-05 16:52] LABS: POC Glucose,Bedside 128 (70-110)
--- NOTE | 2020-06-05 18:00 | HMH.CONS ---
*Admission Date: 06/04/20 *Reason for consult:: abdominal pain/weight loss *History of present illness: This is a 69-year-old male patient who was admitted to the hospital with complaints of abdominal pain and diarrhea since January of this year. This has led to some decreased appetite and he has had a 40 pound weight loss during this period as well. He was treated for pneumonia 4 months ago and subsequently developed intermittent diarrhea associated with abdominal discomfort. He has a history of stomach ulcers about 25 years ago but he does not remember when and how he was treated. He was seen by Dr. Aragon about a month ago who recommended endoscopy but the patient was too scared to undergo anesthesia at the time and refused. CT scan on 06/01 showed fluid-filled loops of small and large bowel air-fluid levels consistent with enteritis, which is similar to a CT scan he had back in January. His stool panels have been negative although there was some occult blood. He reports that he will have several days with no bowel movement and then will have diarrhea for up to 5 or 6 days. He is tried [id number] Kaopectate, Pepto-Bismol, dicyclomine and hyoscyamine without improvement in his symptoms. He reports he has not had a bowel movement since Friday. He was started on Pepcid IV and rehydrated and reports that he has had improvement of his symptoms. He has been able to eat since last night and today. [facility] History Medical History: Reports:: BPH, Chronic Obstructive Pulmonary Disease (COPD), Coronary Artery Disease, Diabetes Mellitus Type 2, Hyperlipidemia, Hypertension, Myocardial Infarction Denies:: Cancer, Diabetes Mellitus Type 1, Internal Pacemaker, MRSA *Have you ever received a pneumonia vaccine?: No *Have you received a flu vaccine this season?: No Other Surgeries: Yes: CABG (2005), Other. No: Pacemaker Amputation: No Fractures: No - *Social History Last grade of school completed: GED Smoking Status: Former smoker Tobacco Type: cigarettes # Packs/Day (cigarettes): 2 #Yrs smoked (if former smoker): 56 Alcohol Intake: never Alcohol Intake Frequency:: a few times a month *Occupational Status:: retired Housing: house Household Members: spouse *Travel in the last 8 weeks: None Family Hx:: Cancer, Coronary Artery Disease, Heart Attack, Hyperlipidemia, Hypertension Review of Systems - Constitutional Reports anorexia, Reports weight loss, Denies chills, Denies fever(s) - Eyes Denies change in vision, Denies pain, Denies sensitivity to light - ENT Denies dizziness, Denies difficulty swallowing, Denies nosebleed, Denies hoarseness, Denies pain with swallowing - *Cardiovascular Denies chest pain, Denies shortness of breath, Denies leg swelling - *Respiratory Denies chest congestion, Denies cough, Denies shortness of breath, Denies wheezing - *Gastrointestinal Reports abdominal pain, Reports bloating, Reports constipation, Reports loose stools, Reports feeling full early, Reports nausea, Denies incontinent of stools, Denies vomiting blood, Denies bright, red blood in stools - *Musculoskeletal Denies abnormal walking, Denies muscle weakness, Denies numbness, Denies tingling - Integumentary/Breasts Denies yellowing of the skin, Denies rash, Denies sores - *Neurologic Denies abnormal speech, Denies confusion, Denies memory loss, Denies numbness, Denies seizure-like activity, Denies tingling - Endocrine Denies cold intolerance, Denies excessive sweating, Denies heat intolerance Meds Home Medications Medication Instructions Recorded Confirmed Type Doxazosin Mesylate [Doxazosin 2mg 2 mg PO HS 03/05/18 06/03/20 History Tab] Glimepiride [Amaryl] 6 mg PO DAILY 03/05/18 06/04/20 History Ipratropium/Albuterol Sulfate 3 ml IH Q6HP PRN 03/05/18 06/03/20 History [Duoneb 3mL neb] Pravastatin Sodium [Pravachol 40mg 40 mg PO HS 03/05/18 06/03/20 History Tablet] lisinopriL [Lisinopril 40mg Tablet] 40 mg PO DAILY 02/15
--- NOTE | 2020-06-05 19:11 | PC.NURSE ---
report given to charly
--- NOTE | 2020-06-05 19:44 | PC.NURSE ---
RT monitored pt during RA sat=95%
[2020-06-05 21:40] LABS: POC Glucose,Bedside 124 (70-110)
[2020-06-06] VITALS (16 sets, daily range): BP systolic 99–161; BP diastolic 53–94; PULSE 61–114; RESP 16–20; TEMP 36.4–36.8; O2SAT 96–99; BMI 27.8
--- NOTE | 2020-06-06 05:11 | PC.NURSE ---
Pt denies any N/V/D still awaiting stool to collect for sample. pt ambulates to BR independently. Pt NPO @ midnight for AM EGD. pt rested quietly this shift.
[2020-06-06 05:26] LABS: POC Glucose,Bedside 104 (70-110)
[2020-06-06 06:51] LABS: Adenovirus,PCR Not Detected (NotDetected); Bordetella Pertussis Not Detected (NotDetected); Chlamydophila Pneumoniae, PCR Not Detected (NotDetected); Coronavirus 19, PCR Not Detected (NotDetected); Coronavirus 229E Not Detected (NotDetected); Coronavirus NL63 Not Detected (NotDetected); Coronavirus OC43 Not Detected (NotDetected); Coronovirus HKU1,PCR Not Detected (NotDetected); Human Metapneumovirus Not Detected (NotDetected); Influenza A, PCR Not Detected (NotDetected); Influenza AH1, 2009 Not Detected (NotDetected); Influenza AH1, PCR Not Detected (NotDetected); Influenza AH3,PCR Not Detected (NotDetected); Influenza B, PCR Not Detected (NotDetected); Mycoplasma Pneumoniae, PCR Not Detected (NotDected); Parainfluenza 1, PCR Not Detected (NotDetected); Parainfluenza 2, PCR Not Detected (NotDetected); Parainfluenza 3, PCR Not Detected (NotDetected); Parainfluenza 4, PCR Not Detected (NotDetected); Respiratory Syncytial Virus Not Detected (NotDetected); Rhinovirus/Enterovirus Not Detected (NotDetected)
--- NOTE | 2020-06-06 08:07 | HMH.ACPN2 ---
<Nancy Freedman - Last Filed: 06/06/20 08:07> Internal Medicine - PN: Subj *Date: 06/06/20 *Time: 08:07 Interval history: Ate a bland diet yesterday without problems. He denies nausea, vomiting, and abdominal pain. His bowels have not moved. He is n.p.o. for an EGD this a.m. He denies chest pain and shortness of breath. He states he is voiding without difficulty. Patient was seen by Manisha Rothman, gastroenterology.S he was able to convince the patient to undergo an EGD. She also recommended colonoscopy at some point time. Patient was then seen by Dr. Aragon, surgeon, who felt panendoscopy would be reasonable. He plans to start upper endoscopy today with colonoscopy likely to be indicated later. Exam Vital signs and Labs for Last 24 Hours: Temp Pulse Resp BP Pulse Ox 98.2 F 105 H 17 150/79 H 97 06/06/20 04:00 06/06/20 05:33 06/06/20 04:00 06/06/20 04:00 06/06/20 04:00 Laboratory Results - last 24 hr 06/05/20 11:59: POC Glucose 136 H 06/05/20 16:43: POC Glucose 128 H 06/05/20 21:22: POC Glucose 124 H 06/06/20 05:17: POC Glucose 104 I & O for Last 24 hours: Intake & Output 06/03/20 06/04/20 06/05/20 06/06/20 11:59 11:59 11:59 11:59 Intake Total 3739 / 3739 3480 / 3480 4252 / 4252 Output Total 200 / 200 100 / 100 2650 / 2650 Balance 3539 / 3539 3380 / 3380 1602 / 1602 Weight 162 lb 5 oz 169 lb 9 oz 167 lb 1 oz - Constitutional no acute distress - *Routine Respiratory Exam Present: CTA bilaterally (Anteriorly and posteriorly) - *Routine Cardiovascular Exam Present: RRR - *Routine Abdominal Exam Present: soft, normoactive bowel sounds. Absent: tenderness, distended, guarding - *Routine Extremities Exam Absent: edema, calf tenderness - *Routine Neurological Exam Present: alert, oriented X3 Assessment and Plan (1) Chronic abdominal pain Current visit: Yes Status: Acute Category: Medical Code(s): R10.9 - Unspecified abdominal pain; G89.29 - Other chronic pain (2) Weight loss Current visit: Yes Status: Acute Category: Medical Code(s): R63.4 - Abnormal weight loss (3) Dehydration Current visit: Yes Status: Acute Category: Medical Code(s): E86.0 - Dehydration (4) Acute renal insufficiency Current visit: Yes Status: Acute Category: Medical Code(s): N28.9 - Disorder of kidney and ureter, unspecified (5) Hypokalemia Current visit: Yes Status: Acute Category: Medical Code(s): E87.6 - Hypokalemia (6) COPD (chronic obstructive pulmonary disease) Current visit: No Status: Chronic Category: Medical Code(s): J44.9 - Chronic obstructive pulmonary disease, unspecified (7) Hyperlipidemia Current visit: No Status: Chronic Category: Medical Code(s): E78.5 - Hyperlipidemia, unspecified (8) Hypertension Current visit: No Status: Chronic Category: Medical Code(s): I10 - Essential (primary) hypertension (9) Type 2 diabetes mellitus Current visit: No Status: Chronic Category: Medical Code(s): E11.9 - Type 2 diabetes mellitus without complications (10) ASCVD (arteriosclerotic cardiovascular disease) Current visit: No Status: Chronic Category: Medical Code(s): I25.10 - Atherosclerotic heart disease of [place] coronary artery without angina pectoris - Assessment and plan all Dx Assessment and Plan for all problems:: EGD today. We will continue with Pepcid. Patient has had a good p.o. intake and urinary output. Will saline lock IV. <Michael Branch - Last Filed: 06/06/20 12:32> Internal Medicine - PN: Subj *Date: 06/06/20 *Time: 12:31 Exam Vital signs and Labs for Last 24 Hours: Temp Pulse Resp BP Pulse Ox 98.1 F 77 16 137/69 98 06/06/20 11:30 06/06/20 11:30 06/06/20 11:30 06/06/20 11:30 06/06/20 11:30 Laboratory Results - last 24 hr 06/05/20 11:59: POC Glucose 136 H 06/05/20 16:43: POC Glucose 128 H 07/20/20 21:22: POC Glucose 124 H 06/06/20 05:17: POC Gluc
--- NOTE | 2020-06-06 10:13 | HMH.ANESCL ---
[facility] Anesthesia Checklist - Patient Identification Patient Identification: Arm Band - Structural Data Admitted From: Inpatient Planned Operative Procedure/s: egd Consent for Planned Operative Procedure(s) Verified: Yes Verified Documents: Surgical Consent, History and Physical - NPO Status Verified Time NPO: 00:00 - Additional verifications Anesthesia Reactions: No - Airway Assessment C-Spine Mobility Assessed: Yes TMJ Mobility Assessed: Yes Dentition: Edentulous - Neurological Assessment Level of Consciousness: Awake, Alert - Anesthesia Plan Anesthesia Risk discussed: Yes Anesthesia Plan: Verified ASA Class: III Anesthesia Type: [facility] History I have reviewed the patient's past medical history: Yes Medical History: Reports:: BPH, Chronic Obstructive Pulmonary Disease (COPD), Coronary Artery Disease, Diabetes Mellitus Type 2, Hyperlipidemia, Hypertension, Myocardial Infarction Denies:: Cancer, Diabetes Mellitus Type 1, Internal Pacemaker, MRSA *Have you ever received a pneumonia vaccine?: No *Have you received a flu vaccine this season?: No Anesthesia experience/problems:: nac Other Surgeries: Yes: CABG (2005), Colonoscopy, EGD, Other. No: Pacemaker Amputation: No Fractures: No - *Social History Last grade of school completed: GED Smoking Status: Former smoker Tobacco Type: cigarettes # Packs/Day (cigarettes): 2 #Yrs smoked (if former smoker): 56 Alcohol Intake: never Alcohol Intake Frequency:: a few times a month Substance Use Type: denies use *Occupational Status:: retired Housing: house Household Members: spouse *Travel in the last 8 weeks: None Family Hx:: Cancer, Coronary Artery Disease, Heart Attack, Hyperlipidemia, Hypertension
[2020-06-06 10:38] LABS: POC Glucose,Bedside 97 (70-110)
--- NOTE | 2020-06-06 11:00 | HMH.SCOPE ---
- Procedure: Date: 06/06/20 Procedure Performed:: Esophagogastroduodenoscopy with biopsies Indications:: Patient is a 69-year-old male whom I am asked to see in consultation from Dr. Branch and gastroenterology. He is an ASA class IV. He is from [facility]. Patient states that since January when he was hospitalized with pneumonia he has had some abdominal pain and weight loss. He has had cramping abdominal pain with intermittent diarrhea and obstipation. Occasionally the pain is worsened after eating and occasionally improved with intake of certain foods. He is also had nausea and regurgitation versus vomiting. I had seen him as an outpatient consultation in April and scheduled him for colonoscopy however the patient states that he was fearful of being put to sleep and canceled the procedure. Couple of days ago he presented to the emergency department due to the severity of the pain. He was seen and evaluated. He had a CT scan on 06/01/2020 with IV and no oral contrast which revealed some air-fluid filled loops of small and large bowel possibly consistent with enterocolitis. This is similar to CT scan with IV and oral contrast performed in January of this year. He did have a stool diarrhea PCR panel which was negative for infectious etiology. Since admission he has had no diarrhea and no bowel movements in particular. Patient states that he does feel somewhat better and attributes this to the H2 blockers he has been on during his hospitalization. Plan was made to proceed with upper endoscopy initially to investigate his symptomatology. Performing Provider:: Ryan Aragon MD Referring Provider:: Hemanth Branch MD Sedation:: Propofol Procedure:: Patient was taken to the endoscopy procedure room. He was positioned in a lateral decubitus position. Adequate intravenous sedation was achieved with anesthesia titration of propofol. Olympus endoscope was inserted via the oropharynx and advanced to the esophagus. Overall the esophagus appeared relatively unremarkable. 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 Stomach was cannulated and insufflated. Retroflexion revealed a tiny sliding hiatal hernia. Patient had some diffuse nodularity of the gastric mucosa. Etiology is unclear. Could be diffuse nodular gastritis. Gastric mucosal biopsies obtained for CLOtest for H. pylori. Numerous gastric mucosal biopsies were obtained. Gastric lining was quite firm which could be inflammatory versus neoplastic. Pylorus was traversed and within the duodenal bulb there were findings consistent with moderate duodenitis. Multiple biopsies were obtained. Endoscope was withdrawn into the distal esophagus and a couple biopsies were obtained at the gastroesophageal junction. Stomach was desufflated and the endoscope was withdrawn. Findings:: Tiny sliding hiatal hernia Diffuse gastric mucosal nodularity, inflammatory versus neoplastic. Multiple biopsies obtained Findings consistent with moderate duodenitis within the bulb Recommendations:: Given the findings on upper endoscopy I would not pursue colonoscopy as of yet. Would treat with possibly proton pump inhibitors and expectantly at this time. If the ultimate pathology is somewhat and telling and his symptoms persist colonoscopy may be warranted which may be able to be done as an outpatient. Complications:: None Estimated blood obtained (mL): 3
--- NOTE | 2020-06-06 11:38 | SUR.PHASEII ---
1120-pt transported via bed to Rm 219. pt comfortable on 2L O2 NC. Isabel JONES at bs, pt talking and stable
[2020-06-06 16:36] LABS: POC Glucose,Bedside 105 (70-110)
--- NOTE | 2020-06-06 16:52 | PC.NURSE ---
PATIENT IS SITTING ON THE SIDE OF THE BED VISITING WITH FAMILY. HE STATES THAT HE IS FEELING MUCH BETTER TODAY. WOULD LIKE TO GO HOME THIS EVENING. PER DR DENNIS PATIENT IS OK TO DC FROM HIS STANDPOINT ON PPI AND WITH A 1 WEEK FOLLOW UP WITH HIM. THIS INFORMATION WAS GIVEN TO DR MOTA WHO WILL SEE HIM AFTER HIS OFFICE HOURS. CALL LIGHT WITHIN REACH WILL CONTINUE TO MONITOR.
--- NOTE | 2020-06-07 16:48 | HMH.DCSUM ---
General - General Admission date:: 06/03/20 <Michael Branch - 06/26/20 08:05> 06/03/20 <ViriSilvana - 06/07/20 16:55> Discharge date: 06/06/20 <ViriSilvana - 06/07/20 16:55> HPI HPI: Mr. Umaña is a 69-year-old white male who was hospitalized with pneumonia in January 2020. About a week after discharge, he began having abdominal pain and diarrhea which has persisted since then. His appetite is been poor and he has lost 40 pounds of weight since his admission here in January. He has been seen in the office on 6 occasions and in the ER at least twice. He has had multiple CT scans most recently 3 days ago showing fluid-filled loops of bowel in the small and large intestine with air-fluid levels consistent with enteritis. He has had diarrhea panels which have been negative. Antispasmodic medications have not helped his pain. No history of blood in the stool. No fever. He has had no vomiting. He was referred to Dr. Aragon about a month ago who recommended endoscopy but the patient has refused stating he does not want to be put to sleep . He returned to the emergency room yesterday because his pain became unbearable. Work-up in the emergency room showed an elevated BUN and creatinine and low potassium. His white count was elevated at 14,000. After a single dose of morphine and famotidine and starting IV fluids he states he is feeling much better this morning. <ViriSilvana - 06/07/20 16:55> Hospital Course Hospital Course: The patient was admitted for IV fluid hydration and further evaluation of his chronic abdominal pain and weight loss. Dr. Branch recommended a panendoscopy, but the patient was adamant that he did not want to be put to sleep. Dr. Wagner was consulted and the patient was continued on fluids and famotidine. The patient did begin feeling better and felt it was due to the Pepcid. He was able to eat without nausea, vomiting, diarrhea, or abdominal pain. The patient was seen by Manisha arce who also felt he would need a panendoscopy. Dr. Wagner was unavailable, therefore she spoke with Dr. Aragon about doing an endoscopy. After lengthy discussion with the patient, he was amendable to having the endoscopy done while in the hospital. A consult was therefore placed with Dr. Aragon. The patient was seen by Dr. Aragon and he performed an EGD with biopsies. He found a sliding hiatal hernia, diffuse gastric mucosal nodularity, inflammatory versus neoplastic, and moderate duodenitis within the bulb. Biopsies were obtained. Given the findings on his upper endoscopy, Dr. Aragon did not feel he needed a colonoscopy yet. He recommended proton pump inhibitors and to follow-up on pathology. The patient began feeling better and was stable to be discharged home. He will follow-up with Dr. Aragon in [address] Diaz in 2 weeks. <Silvana Meredith - 06/07/20 16:55> Objective Vital signs: Temp Pulse Resp BP Pulse Ox 97.8 F 109 H 18 154/94 H 97 06/06/20 16:00 06/06/20 16:00 06/06/20 16:00 06/06/20 16:00 06/06/20 16:00 <Michael Branch - 06/26/20 08:05> Temp Pulse Resp BP Pulse Ox 97.8 F 109 H 18 154/94 H 97 06/06/20 16:00 06/06/20 16:00 06/06/20 16:00 06/06/20 16:00 06/06/20 16:00 <Silvana Meredith - 06/07/20 16:55> Narrative: - Constitutional no acute distress - *Routine Respiratory Exam Present: CTA bilaterally (Anteriorly and posteriorly) - *Routine Cardiovascular Exam Present: RRR - *Routine Abdominal Exam Present: soft, normoactive bowel sounds. Absent: tenderness, distended, guarding - *Routine Extremities Exam Absent: edema, calf tenderness - *Routine Neurological Exam Present: alert, oriented X3 <Silvana Meredith - 06/07/20 16:55> DS: Diagnosis - Discharge Diagnosis (1) Chronic abdominal pain Status: Acute (2) Weight loss Status: Acute (3) Dehydration Status: Acute (4) Acute renal insufficiency
== END 2020-06-06 18:05 | disposition home or self-care (01) ==
LOC: ER 18:28 → 2ND 18:47
PROVIDERS: Surgery; Admitting Provider Family Medicine; Emergency Provider Emergency Medicine; PCP Family Medicine; Visit Provider Family Medicine
PROC: 0DJ08ZZ Inspection of Upper Intestinal Tract, Via Natural or Artificial Opening Endoscopic (ICD-10-PCS; CPT 43235; principal; 2020-06-06 11:00)
DX: N17.9 Acute kidney failure, unspecified (principal); R10.84 Generalized abdominal pain; E86.0 Dehydration; J44.9 Chronic obstructive pulmonary disease, unspecified; E78.5 Hyperlipidemia, unspecified; E87.6 Hypokalemia; I25.10 Atherosclerotic heart disease of native coronary artery without angina pectoris; E11.9 Type 2 diabetes mellitus without complications; I25.2 Old myocardial infarction; Z95.1 Presence of aortocoronary bypass graft; Z87.891 Personal history of nicotine dependence; I10 Essential (primary) hypertension; Z79.84 Long term (current) use of oral hypoglycemic drugs; Z79.899 Other long term (current) drug therapy
CPT/HCPCS: 43239; 36415; 80048; 80053; 82150; 82962; 83690; 84443; 85025; 87339; 87581; 87633; 87798; 88305; 93005; 94640; 94760; 96365; 96375; 99284; G0378

== ENCOUNTER → 2020-08-21 13:32 | Outpatient (POV) | payer MEDICARE, SELFPAY | PROVIDERS: Visit Provider Nurse Practitioner Family | DX: Z00.00 Encounter for general adult medical examination without abnormal findings (principal) ==

== ENCOUNTER 2022-03-31 12:36 | Emergency (ER) | payer MEDICARE, SELFPAY ==
--- NOTE | 2022-03-31 12:36 | ECG_ITS ---
APPROVED REPORT Exam: Resting ECG HR:89 bpm ECG Measurements Heart Rate 89 AXES NC 181 P 66 QRSd 94 QRS 58 QT 364 T -5 QTc 411 Conclusion SINUS RHYTHM WITH OCCASIONAL SUPRAVENTRICULAR PREMATURE COMPLEXES NONSPECIFIC ST & T-WAVE ABNORMALITY ABNORMAL ECG UNCONFIRMED REPORT Electronically signed by : Ben Strauss MD 04/01/2022 15:49:23
--- NOTE | 2022-03-31 12:40 | HMH.EDGENADL ---
ED Disposition Clinical Impression: Atypical chest pain Disposition: Home, Self-Care Condition on Discharge: Good Instructions: DI for Atypical Chest Pain Additional Instructions: Additional instructions for CHEST PAIN: See cardiology, Dr. White, as soon as possible for further evaluation. Call tomorrow morning at 9 AM to make appointment. Take all of your evening medications when you arrive home tonight, including your blood pressure medication. Return immediately if worsening chest pain, vomiting, shortness of breath, fever, coughing of blood. Referrals: Michael Branch MD [Primary Care Provider] - Gerald White MD [Staff Physician] - - Critical Care Critical Care Time: No Attestation: On , the high probability of a clinically significant, sudden or life threatening deterioration of the following system(s) required my full and direct attention, intervention and personal management. The time I documented below is in addition to time spent performing reported procedures but includes the following listed in this critical care notation. Medical Decision Making - Gigi Inquiry Pt receiving controlled substance: No Vital Signs: 03/31/22 12:54 03/31/22 13:21 03/31/22 13:30 Temperature 98.5 F Temperature Source Oral Pulse Rate 89 88 Pulse Rate [Left Radial] 89 Respiratory Rate 17 14 Blood Pressure 174/87 H 200/92 H Blood Pressure [Right Arm] 171/86 H Blood Pressure Mean 116 108 Blood Pressure Mean [Right Arm] 114 02 Sat by Pulse Oximetry 98 93 L 93 L Oxygen Delivery Method Room Air - Lab Data Lab Results 03/31/22 12:38: WBC 9.4, RBC 5.13, Hgb 16.1, Hct 49.3, MCV 96.2 H, MCH 31.4 H, MCHC 32.6, RDW 14.5, Plt Count 202, MPV 9.1, Neut % (Auto) 80.0, Lymph % (Auto) 11.6, Hanson % (Auto) 3.9, Eos % (Auto) 2.9, Baso % (Auto) 1.5, Neut # (Auto) 7.5, Lymph # (Auto) 1.1, Hanson # (Auto) 0.4, Eos # (Auto) 0.3, Baso # (Auto) 0.1 03/31/22 12:38: Sodium 141, Potassium 3.5, Chloride 104, Carbon Dioxide 26, Anion Gap 14.5, BUN 27 H, Creatinine 1.40 H, Estimated Creat Clear 50, Estimated GFR 50 L, Est GFR ( Amer) 60, Glucose 223 H, Calcium 9.8, Troponin I < 0.01 03/31/22 12:38: Total Bilirubin 0.5, Direct Bilirubin 0.1, Conjugated Bilirubin 0.0, Indirect Bilirubin 0.4, Unconjugated Bilirubin 0.4, AST 30, ALT 25, Alkaline Phosphatase 78, Total Protein 7.2, Albumin 4.3, Lipase 179 03/31/22 16:06: Troponin I < 0.01 Result diagrams: 03/31/22 12:38 03/31/22 12:38 Orders (Tests/Meds): ED MEDICATIONS Generic Name Dose Route Start Last Admin Trade Name Freq PRN Reason Stop Dose Admin Sodium Chloride 10 ml 03/31/22 12:53 Sodium Chloride 0.9% 10ml Flush Syringe IV 04/30/22 12:52 NEEDED PRN Maintain IV Site ORDERS Category Date Time Status Troponin I Q3H Lab 03/31/22 19:00 Ordered - Radiology Data #1 Image(s): Chest Image Reviewed: Yes I have reviewed radiologist's interpretation PROCEDURE INFORMATION: Exam: XR Chest Exam date and time: 03/31/2022 12:55 PM Age: 71 years old Clinical indication: Pain; Chest pressure; Additional info: Chest pain TECHNIQUE: Imaging protocol: XR of the chest. Views: 2 views. COMPARISON: CR XR CHEST 2V 01/26/2020 7:25 PM FINDINGS: Lungs: Unremarkable. No consolidation. Pleural spaces: Unremarkable. No pleural effusion. No pneumothorax. Heart/Mediastinum: Unremarkable. No cardiomegaly. Bones/joints: Median sternotomy wires. IMPRESSION: No acute findings. - ECG Data Tracing #1 EKG interpreted by Leighton Roblero MD: Rhythm: sinus Rate: [address]: normal Ectopy: Premature atrial contractions Conduction: normal ST Segment Changes: none T Wave Changes: Nonspecific Q Waves: none No evidence of acute ischemia or injury Prior electrocardiagrams reviewed. No significant change from prior tracings. - Reevaluat
[2022-03-31 12:52] VITALS: BMI 27.8
--- NOTE | 2022-03-31 12:53 | XR_ITS ---
PROCEDURE INFORMATION: Exam: XR Chest Exam date and time: 03/31/2022 12:55 PM Age: 71 years old Clinical indication: Pain; Chest pressure; Additional info: Chest pain TECHNIQUE: Imaging protocol: XR of the chest. Views: 2 views. COMPARISON: CR XR CHEST 2V 01/26/2020 7:25 PM FINDINGS: Lungs: Unremarkable. No consolidation. Pleural spaces: Unremarkable. No pleural effusion. No pneumothorax. Heart/Mediastinum: Unremarkable. No cardiomegaly. Bones/joints: Median sternotomy wires. IMPRESSION: No acute findings.
[2022-03-31 12:54] VITALS: BP 171/86; PULSE 89; RESP 17; TEMP 36.9; O2SAT 98; BMI 27.8
[2022-03-31 13:02] LABS: Basophils # 0.1 K/mm3 (0-0.2); Basophils % 1.5 % (0.1-2.0); Chloride 104 mmol/L (98-107); Eosinophils # 0.3 K/mm3 (0.0-0.4); Eosinophils % 2.9 % (0.1-12.0); Hematocrit 49.3 % (42.0-52.0); Hemoglobin 16.1 g/dL (14.1-18.0); Lymphocytes # 1.1 K/mm3 (0.7-4.5); Lymphocytes % 11.6 % (10-50); Mean Corpuscular HGB Conc 32.6 g/dL (31.8-35.4); Mean Corpuscular Hemoglobin 31.4 pg (27.0-31.2); Mean Corpuscular Volume 96.2 fl (80-94); Mean Platelet Volume 9.1 fl (7.4-10.4); Monocytes # 0.4 K/mm3 (0.1-1.0); Monocytes % 3.9 % (1.7-9.3); Neutrophils # 7.5 K/mm3 (1.8-7.8); Platelet Count 202 K/mm3 (142-424); Potassium 3.5 mmoL/L (3.5-5.1); Red Blood Count 5.13 M/mm3 (4.60-6.20); Red Cell Distribution Width 14.5 % (11.5-17.5); Sodium 141 mmol/L (136-145); White Blood Count 9.4 K/mm3 (4.8-10.8)
[2022-03-31 13:05] LABS: Blood Urea Nitrogen 27 mg/dl (9-20); Creatinine Clearance Estimated 50 mL/min (50-200); Estimated Glomerular Filt Rate 50 ml/min (>60); GFR (African American) 60 ML/MIN (>60)
[2022-03-31 13:06] LABS: Calcium 9.8 mg/dl (8.4-10.2); Glucose 223 mg/dl (74-100)
[2022-03-31 13:21] VITALS: BP 174/87; PULSE 89; O2SAT 93
[2022-03-31 13:27] LABS: Troponin I < 0.01 ng/ml (0.00-0.034)
[2022-03-31 13:30] VITALS: BP 200/92; PULSE 88; RESP 14; O2SAT 93
--- NOTE | 2022-03-31 13:43 | PC.NURSE ---
pt waiting in room on bed; visitor at BS
[2022-03-31 14:29] LABS: Anion Gap 14.5 mEq/L (5-15); Carbon Dioxide 26 mmol/L (22.0-30.0)
[2022-03-31 14:40] LABS: Alanine Aminotransferase 25 U/L (12-78); Alkaline Phosphatase 78 U/L (38-126); Aspartate Amino Transferase 30 U/L (17-59); Bilirubin,Direct 0.1 mg/dl (0.0-0.4); Bilirubin,Indirect 0.4 mg/dL (0.0-0.9); Bilirubin,Total 0.5 mg/dl (0.2-1.3); Bilirubin,Unconjugated 0.4 mg/dL (0.0-1.1); Lipase 179 U/L (23-300)
[2022-03-31 14:41] LABS: Albumin Level 4.3 g/dl (3.5-5.0); Total Protein,Serum 7.2 g/dl (6.3-8.2)
--- NOTE | 2022-03-31 15:26 | PC.NURSE ---
patient ambulatory back to ED room 6 from restroom without complications
--- NOTE | 2022-03-31 16:07 | PC.NURSE ---
2nd troponin drawn and sent to lab; drawn out of right hand, no complications. Patient and family have been updated that we are waiting on 2nd troponin results and have no other questions at this time
[2022-03-31 16:35] LABS: Troponin I < 0.01 ng/ml (0.00-0.034)
--- NOTE | 2022-03-31 16:54 | PC.NURSE ---
ED MD at speaking with patient regarding update on POC
[2022-03-31 17:09] VITALS: BP 170/94; PULSE 87; RESP 15; TEMP 36.9; O2SAT 95
== END 2022-03-31 17:09 | disposition home or self-care (01) ==
PROVIDERS: Emergency Provider Emergency Medicine; PCP Family Medicine
DX: R07.89 Other chest pain (principal); I10 Essential (primary) hypertension; I25.10 Atherosclerotic heart disease of native coronary artery without angina pectoris; I25.2 Old myocardial infarction; E78.5 Hyperlipidemia, unspecified; E11.9 Type 2 diabetes mellitus without complications; N40.0 Benign prostatic hyperplasia without lower urinary tract symptoms; J44.9 Chronic obstructive pulmonary disease, unspecified; Z79.51 Long term (current) use of inhaled steroids; Z79.82 Long term (current) use of aspirin; Z79.899 Other long term (current) drug therapy; Z95.1 Presence of aortocoronary bypass graft; Z87.891 Personal history of nicotine dependence
CPT/HCPCS: 71046; 80048; 80076; 83690; 84484; 85025; 93005; 99285

== ENCOUNTER → 2022-04-08 11:33 | Outpatient (CLI) | payer MEDICARE, SELFPAY ==
--- NOTE | 2022-04-08 11:34 | NM_ITS ---
APPROVED REPORT Exam: Nuclear Stress Test Indication: Chest pain, SOB, HTN, DM, High cholesterol, Tobacco use, Family history, CABG Patient Location: Outpatient Stress Tech: Bonny Mcmullen [place] Tech:Sunni Soto, ARRT, RT (R)(N) Ht: 5 ft 5 in Wt: 164 lbs HR: 77 bpm BP: 149/79 mmHg BSA: 1.82 m2 TID: 1.15 BMI: 27.2 History: Chest pain, SOB, HTN, DM, High cholesterol, Tobacco use, Family history, CABG Procedure: Patient received a 0.4 mg of intravenous Lexiscan, resting heart rate 77 bpm, resting blood pressure 149/79 mmHg, with Lexiscan maximum heart rate achived was 93 bpm which is Less than 85 % of the maximum predicted heart rate and blood pressure was 182/72 mmHg. With Lexiscan, patient denied any complaint of chest pain. Electrocardiogram Resting electrocardiogram shows sinus rhythm intraventricular conduction delay, nonspecific ST-T changes premature ventricular complexes, with Lexiscan there is less than 1.[address] segment depression noted from the baseline EKG. The EKG portion of the Lexiscan is nondiagnostic. Cardiac Stress and Resting SPECT Images: Cardiac Stress and Resting SPECT images were obtained using technetium 99m Myoview 30.9 mCi stress and 10.81 mCi at rest. Patient unable to lay on stomach for prone images. Gated SPECT analysis of segmental wall motion and calculation of the ejection fraction also done. Cardiac stress and rest SPECT images show a fixed defect in the inferior wall with normal contractility gated SPECT is likely secondary to soft tissue attenuation, no reversible ischemia seen, computer derived ejection fraction of 36% however during this study frequent ectopic beats were present which may underestimate the ejection fraction by gated SPECT. Right ventricle is normal size and contractility. Conclusion: 1. The EKG portion of the Lexiscan is nondiagnostic. 2. No scintigraphic evidence of reversible ischemia seen, fixed defect in the inferior wall is likely secondary to soft tissue attenuation, computer derived ejection fraction is 36% however improved this study frequent ectopic beats were present which may underestimate the ejection fraction by gated SPECT, an echocardiogram would be better modality to evaluate left ventricular systolic function in this patient. Right ventricle is normal size and contractility. Electronically signed by : Roshan Johansen MD 04/08/2022 21:12:55
--- NOTE | 2022-04-08 13:35 | HMH.ITSHM ---
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 []FUROSEMIDE ISOSORBIED METOPROLOL GLIMEPIRIDE LISINOPRIL AMLODIPINE PANTOPRAZOLE ATORVASTATIN ASA ALBUTEROL
--- NOTE | 2022-04-08 13:49 | CA_ITS ---
APPROVED REPORT EXAM: Comprehensive 2D, Doppler, and color-flow Echocardiogram Printer Apprentice: Sandra Vo CRT Ht: 5 ft 5 in Wt: 164lbs BSA: 1.82 BP: 155/77 mmHg Indications: Chest Pain, COPD, Shortness of Breath, Diabetes, CAD, Hyperlipidemia, Hypertension/HDD, CABG 2D Dimensions LVOT 1.71 cm (M/F) 1.5-2.5 M-Mode Dimensions RVDd 2.62 cm (0.9-2.6) LA Diam 3.81 cm (1.9-4.0) LVDd 5.09 cm (3.5-5.7) Ao Diam 4.32 cm (2.0-3.7) LVDs 3.16 cm (3.5-5.7) IVSd 1.75 cm (0.6-1.1) PWd 0.76 cm (0.6-1.1) EF (Teich) 67.80% FS 37.90% EDV (Teich) 123.20 mL TAPSE 1.79 (<1.7) ESV (Teich) 39.70 mL LV Diastology E Decel Time 190.00 (160-240 msec) E/A Ratio 0.76 MED E' 6.50 (< 7 cm/sec) MED A' 8.30 cm/s E'/MED E' Ratio 12.22 (>14) LAT E' 8.90 (<10 cm/sec) LAT A' 7.60 cm/s E/LAT E' Ratio 8.92 (>14) Aortic Valve LVOT Max 154.00 (70-110 cm/s) LVOT VTI 35.63 cm AoV Peak Jourdan. 169.00 (50-130 cm/s) AI PHT 548.00 ms AO Peak GR. 11.40 mmHg AO Mean GR. 8.00 (<5 mmHg) AO VTI 42.31 (18-25 cm) TOBIN (VTI) 1.93 (2.5-4.5 cm2) Mitral Valve MV E Max Jourdan. 79.00 (40-130 cm/s) MV A Velocity 104.00 (40-130 cm/s) E/A Ratio 0.76 MV Decel. Time 190.00 (160-240 ms) MV PHT 56.00 ms Pulmonary Valve PV Peak Velocity 107.00 (50-150 cm/s) Tricuspid Valve TR P. Velocity 273.00 cm/s RAP Estimate 10.00 mmHg RVSP 39.90 mmHg Left Ventricle Left atrium is mildly enlarged, left ventricle is normal size, mild concentric left ventricular hypertrophy, estimated ejection fraction 50% with no regional wall motion abnormality, endocardial surfaces are poorly visualized. Grade 1 diastolic dysfunction seen without tissue Doppler evidence of raise left atrial pressure. Right Ventricle Right atrium and right ventricle are mildly enlarged with normal contractility. Aortic Valve Aortic valve is thickened and calcified without aortic stenosis, there is trace aortic insufficiency. Mitral Valve Mitral valve is is minimally thickened, there is mild mitral regurgitation. Tricuspid Valve Tricuspid grossly normal, there is mild tricuspid regurgitation, calculated right ventricular systolic pressure 39 mmHg. Pulmonic Valve Pulmonic valve is poorly visualized. Great Vessels Aortic root is normal size. Inferior vena cava is poorly visualized. Pericardium No significant pericardial effusion noted. Conclusion 1. Mild biatrial enlargement, normal left ventricular size, mild concentric left ventricular hypertrophy, estimated ejection fraction 50% with no regional wall motion abnormality, grade 1 diastolic dysfunction seen without tissue Doppler evidence of raise left atrial pressure. 2. Mildly enlarged right ventricle with normal contractility. 3. Thickened and calcified aortic valve without aortic stenosis, there is trace aortic insufficiency. 4. Mild mitral and tricuspid regurgitation, calculated right ventricular systolic pressure 39 mmHg. 5. No significant pericardial effusion. 6. Inferior vena cava is poorly visualized. Electronically signed by : Roshan Johansen MD 04/08/2022 20:50:45
--- NOTE | 2022-04-08 13:56 | CA_ITS ---
APPROVED REPORT Exam: Pharmacologic Technologist: Bonny Muhammad, Ht: 5 ft 5 in Wt: 164 lbs BSA: 1.82 m2 HR: 75 bpm BP: 149/79 mmHg Medical History Medications: Lisinopril,,,,, Isosorbide,,,,, Aspirin,,,,, Metoprolol,,,,, Pravastatin,,,,, Metformin,,,,, Pantoprazole,,,,, Glimepiride,,,,, Albuterol,,,,, Famotidine,,,,, DOxazosin,,,,, FluTICASONE,,,,, Stress Test Details Test: LEXISCAN HR Resting HR: 77 bpm Max Heart Rate (APMHR): 147.915737 bpm Max HR Achieved: 93 bpm Target HR (85% APMHR): 124.370380 bpm % of APMHR: 63.27 Recovery HR: 76 bpm BP Resting BP: 149/79 mmHg Max BP: 182/72 mmHg Recovery BP: 165.0/65.0 mmHg ECG Clinical Exercise duration: 04:02 min Highest Stage Achieved: Stress ECG Conclusion Symptoms: SOA with Lexiscan Arrhythmias/Ectopy: Multiple PVC's ST-T Changes: <1.[address] Segment depression Electronically signed by : Roshan Johansen MD 04/08/2022 21:09:41
== END ==
PROVIDERS: PCP Family Medicine; Visit Provider Physician Assistant
DX: E78.5 Hyperlipidemia, unspecified (principal); I10 Essential (primary) hypertension; I25.10 Atherosclerotic heart disease of native coronary artery without angina pectoris; R06.09 Other forms of dyspnea; R94.31 Abnormal electrocardiogram [ECG] [EKG]
CPT/HCPCS: 78452; 93017; 93306; A9502; J2785

== ENCOUNTER → 2022-05-10 11:43 | Outpatient (CLI) | payer MEDICARE, SELFPAY | PROVIDERS: PCP Nurse Practitioner; Visit Provider Nurse Practitioner Family | DX: G47.33 Obstructive sleep apnea (adult) (pediatric) (principal); R06.00 Dyspnea, unspecified; R06.83 Snoring; R40.0 Somnolence | CPT/HCPCS: G0399 ==

== ENCOUNTER → 2022-08-27 11:00 | Outpatient (CLI) | payer MEDICARE, SELFPAY ==
[2022-08-27 19:05] LABS: Anion Gap 16.2 mEq/L (5-15); Blood Urea Nitrogen 36 mg/dl (9-20); Calcium 9.4 mg/dl (8.4-10.2); Carbon Dioxide 27 mmol/L (22.0-30.0); Chloride 104 mmol/L (98-107); Chol/HDL Ratio 5.8 (1-3.5); Cholesterol 145 mg/dl (140-200); Estimated Glomerular Filt Rate 46 ml/min (>60); GFR (African American) 56 ML/MIN (>60); Glucose 110 mg/dl (74-100); HDL Cholesterol 25 mg/dl (40-60); Potassium 4.2 mmoL/L (3.5-5.1); Sodium 143 mmol/L (136-145); Triglycerides 226 mg/dl (30-150); VLDL Cholesterol 45 mg/dL (0-40)
== END ==
PROVIDERS: PCP Nurse Practitioner; Visit Provider Nurse Practitioner
DX: E11.9 Type 2 diabetes mellitus without complications (principal); E78.5 Hyperlipidemia, unspecified; I10 Essential (primary) hypertension
CPT/HCPCS: 80048; 80061

== ENCOUNTER → 2023-02-20 23:15 | Outpatient (CLI) | payer MEDICARE, SELFPAY ==
[2023-02-20 18:39] LABS: Basophils % 0.5 % (0.1-2.0); Eosinophils # 0.6 K/mm3 (0.0-0.4); Eosinophils % 6.5 % (0.1-12.0); Hematocrit 44.4 % (42.0-52.0); Hemoglobin 14.7 g/dL (14.1-18.0); Lymphocytes # 1.7 K/mm3 (0.7-4.5); Mean Corpuscular HGB Conc 33.2 g/dL (31.8-35.4); Mean Corpuscular Hemoglobin 32.5 pg (27.0-31.2); Mean Platelet Volume 10.1 fl (7.4-10.4); Monocytes # 0.5 K/mm3 (0.1-1.0); Neutrophils # 5.9 K/mm3 (1.8-7.8); Platelet Count 220 K/mm3 (142-424); Red Blood Count 4.53 M/mm3 (4.60-6.20); Red Cell Distribution Width 13.7 % (11.5-17.5); White Blood Count 8.7 K/mm3 (4.8-10.8)
[2023-02-20 18:52] LABS: Alanine Aminotransferase 16 U/L (12-78); Albumin Level 4.5 g/dl (3.5-5.0); Albumin/Globulin Ratio 1.8 (1.1-1.8); Alkaline Phosphatase 66 U/L (38-126); Anion Gap 11.6 mEq/L (5-15); Aspartate Amino Transferase 20 U/L (17-59); Bilirubin,Total 0.4 mg/dl (0.2-1.3); Blood Urea Nitrogen 30 mg/dl (9-20); Calcium 9.1 mg/dl (8.4-10.2); Carbon Dioxide 26 mmol/L (22.0-30.0); Chloride 107 mmol/L (98-107); Chol/HDL Ratio 6.1 (1-3.5); Cholesterol 146 mg/dl (140-200); Estimated Glomerular Filt Rate 40 ml/min (>60); GFR (African American) 48 ML/MIN (>60); Globulin 2.5 g/dL (1.3-3.2); Glucose 89 mg/dl (74-100); HDL Cholesterol 24 mg/dl (40-60); Potassium 4.6 mmoL/L (3.5-5.1); Sodium 140 mmol/L (136-145); Triglycerides 290 mg/dl (30-150); VLDL Cholesterol 58 mg/dL (0-40)
[2023-02-20 19:04] LABS: Direct LDL Cholesterol 86.16 mg/dL (100-129)
[2023-02-20 19:23] LABS: Thyroid Stimulating Hormone 1.25 uIU/mL (0.465-4.68)
[2023-02-20 19:46] LABS: Microalbumin/Creatinine Ratio 16.3
[2023-02-20 19:55] LABS: Creatinine,Urine Random 47 mg/dL (Not Estab.)
[2023-02-20 20:08] LABS: Hemoglobin A1C 7.8 % (4.0-6.0)
== END ==
PROVIDERS: PCP Nurse Practitioner; Visit Provider Nurse Practitioner
DX: E11.9 Type 2 diabetes mellitus without complications (principal); E78.2 Mixed hyperlipidemia; I10 Essential (primary) hypertension; J43.9 Emphysema, unspecified; Z79.84 Long term (current) use of oral hypoglycemic drugs
CPT/HCPCS: 80053; 80061; 82043; 82570; 83036; 84443; 85025

== ENCOUNTER → 2023-04-23 15:00 | Outpatient (CLI) | payer MEDICARE, SELFPAY ==
[2023-04-23 19:47] LABS: Anion Gap 19.8 mEq/L (5-15); Blood Urea Nitrogen 38 mg/dl (9-20); Calcium 9.3 mg/dl (8.4-10.2); Carbon Dioxide 22 mmol/L (22.0-30.0); Chloride 108 mmol/L (98-107); Estimated Glomerular Filt Rate 35 ml/min (>60); GFR (African American) 42 ML/MIN (>60); Glucose 98 mg/dl (74-100); Potassium 4.8 mmoL/L (3.5-5.1); Sodium 145 mmol/L (136-145)
== END ==
PROVIDERS: PCP Nurse Practitioner; Visit Provider Nurse Practitioner
DX: E11.9 Type 2 diabetes mellitus without complications (principal); Z79.84 Long term (current) use of oral hypoglycemic drugs
CPT/HCPCS: 80048

== ENCOUNTER → 2023-05-29 18:49 | Outpatient (CLI) | payer MEDICARE, SELFPAY ==
[2023-05-29 19:17] LABS: Chloride 108 mmol/L (98-107); Potassium 4.1 mmoL/L (3.5-5.1); Sodium 140 mmol/L (136-145)
[2023-05-29 19:20] LABS: Anion Gap 16.1 mEq/L (5-15); Blood Urea Nitrogen 26 mg/dl (9-20); Carbon Dioxide 20 mmol/L (22.0-30.0); Estimated Glomerular Filt Rate 50 ml/min (>60); GFR (African American) 60 ML/MIN (>60)
[2023-05-29 19:21] LABS: Calcium 9.7 mg/dl (8.4-10.2); Glucose 136 mg/dl (74-100)
== END ==
PROVIDERS: PCP Nurse Practitioner; Visit Provider Nurse Practitioner
DX: E11.9 Type 2 diabetes mellitus without complications (principal); N28.9 Disorder of kidney and ureter, unspecified; Z79.84 Long term (current) use of oral hypoglycemic drugs
CPT/HCPCS: 80048

== ENCOUNTER → 2023-09-24 23:16 | Outpatient (CLI) | payer MEDICARE, SELFPAY ==
[2023-09-24 19:34] LABS: Alanine Aminotransferase 22 U/L (12-78); Albumin Level 4.2 g/dl (3.5-5.0); Albumin/Globulin Ratio 1.7 (1.1-1.8); Alkaline Phosphatase 66 U/L (38-126); Aspartate Amino Transferase 25 U/L (17-59); Bilirubin,Total 0.3 mg/dl (0.2-1.3); Blood Urea Nitrogen 30 mg/dl (9-20); Calcium 9.5 mg/dl (8.4-10.2); Carbon Dioxide 24 mmol/L (22.0-30.0); Chloride 107 mmol/L (98-107); Chol/HDL Ratio 6.6 (1-3.5); Cholesterol 131 mg/dl (140-200); Estimated Glomerular Filt Rate 42 ml/min (>60); GFR (African American) 51 ML/MIN (>60); Globulin 2.5 g/dL (1.3-3.2); Glucose 155 mg/dl (74-100); HDL Cholesterol 20 mg/dl (40-60); Sodium 142 mmol/L (136-145); Total Protein,Serum 6.7 g/dl (6.3-8.2); Triglycerides 187 mg/dl (30-150); VLDL Cholesterol 37 mg/dL (0-40)
[2023-09-24 19:49] LABS: Direct LDL Cholesterol 85.13 mg/dL (100-129)
[2023-09-24 20:17] LABS: Hemoglobin A1C 5.4 % (4.0-6.0)
== END ==
PROVIDERS: PCP Nurse Practitioner; Visit Provider Nurse Practitioner
DX: E11.9 Type 2 diabetes mellitus without complications (principal); I10 Essential (primary) hypertension; N28.9 Disorder of kidney and ureter, unspecified; Z79.84 Long term (current) use of oral hypoglycemic drugs; Z72.0 Tobacco use
CPT/HCPCS: 80053; 80061; 83036

== ENCOUNTER 2024-03-08 18:00 | Outpatient (CLI) | payer MEDICARE, SELFPAY ==
[2024-03-08 19:09] LABS: Hemoglobin A1C 5.6 % (4.0-6.0)
[2024-03-08 19:36] LABS: Alanine Aminotransferase 24 U/L (12-78); Albumin Level 4.5 g/dl (3.5-5.0); Albumin/Globulin Ratio 1.6 (1.1-1.8); Alkaline Phosphatase 64 U/L (38-126); Anion Gap 16.1 mEq/L (5-15); Aspartate Amino Transferase 28 U/L (17-59); Bilirubin,Total 0.4 mg/dl (0.2-1.3); Blood Urea Nitrogen 33 mg/dl (9-20); Calcium 9.8 mg/dl (8.4-10.2); Carbon Dioxide 23 mmol/L (22.0-30.0); Chloride 109 mmol/L (98-107); Chol/HDL Ratio 6.4 (1-3.5); Cholesterol 161 mg/dl (140-200); Estimated Glomerular Filt Rate 46 ml/min (>60); GFR (African American) 55 ML/MIN (>60); Globulin 2.8 g/dL (1.3-3.2); Glucose 185 mg/dl (74-100); HDL Cholesterol 25 mg/dl (40-60); Potassium 4.1 mmoL/L (3.5-5.1); Sodium 144 mmol/L (136-145); Total Protein,Serum 7.3 g/dl (6.3-8.2); Triglycerides 259 mg/dl (30-150); VLDL Cholesterol 52 mg/dL (0-40)
[2024-03-08 19:50] LABS: Direct LDL Cholesterol 94.04 mg/dL (100-129)
[2024-03-08 20:19] LABS: Creatinine,Urine Random 38 mg/dL (Not Estab.)
[2024-03-08 20:25] LABS: Microalbumin < 6.000 mg/L (0-16.7)
== END 2024-03-08 23:59 | disposition home or self-care (01) ==
LOC: LAB.DROPOF 03-09 10:18
PROVIDERS: PCP Nurse Practitioner; Visit Provider Nurse Practitioner
DX: E11.9 Type 2 diabetes mellitus without complications (principal); I10 Essential (primary) hypertension; E78.2 Mixed hyperlipidemia; E78.5 Hyperlipidemia, unspecified; Z79.84 Long term (current) use of oral hypoglycemic drugs; Z79.899 Other long term (current) drug therapy
CPT/HCPCS: 80053; 80061; 82043; 82570; 83036; 84443

== ENCOUNTER 2024-08-31 15:26 | Outpatient (CLI) | payer MEDICARE, SELFPAY ==
[2024-08-31 18:55] LABS: Basophils # 0.1 K/mm3 (0-0.2); Basophils % 0.7 % (0.1-2.0); Eosinophils # 0.6 K/mm3 (0.0-0.4); Eosinophils % 7.3 % (0.1-12.0); Hematocrit 45.2 % (42.0-52.0); Hemoglobin 15.3 g/dL (14.1-18.0); Lymphocytes # 1.3 K/mm3 (0.7-4.5); Lymphocytes % 15.6 % (10-50); Mean Corpuscular HGB Conc 33.9 g/dL (31.8-35.4); Mean Corpuscular Hemoglobin 31.8 pg (27.0-31.2); Mean Corpuscular Volume 93.6 fl (80-94); Monocytes # 0.5 K/mm3 (0.1-1.0); Monocytes % 5.4 % (1.7-9.3); Neutrophils # 5.9 K/mm3 (1.8-7.8); Platelet Count 209 K/mm3 (142-424); Red Blood Count 4.83 M/mm3 (4.60-6.20); Red Cell Distribution Width 14.1 % (11.5-17.5); White Blood Count 8.4 K/mm3 (4.8-10.8)
[2024-08-31 19:16] LABS: Hemoglobin A1C 5.6 % (4.0-6.0)
[2024-08-31 19:22] LABS: Albumin Level 4.4 g/dl (3.5-5.0); Chloride 104 mmol/L (98-107); Sodium 140 mmol/L (136-145)
[2024-08-31 19:23] LABS: Potassium 4.2 mmoL/L (3.5-5.1)
[2024-08-31 19:25] LABS: Alanine Aminotransferase 24 U/L (12-78); Albumin/Globulin Ratio 1.7 (1.1-1.8); Alkaline Phosphatase 67 U/L (38-126); Anion Gap 12.2 mEq/L (5-15); Aspartate Amino Transferase 23 U/L (17-59); Bilirubin,Total 0.5 mg/dl (0.2-1.3); Blood Urea Nitrogen 30 mg/dl (9-20); Carbon Dioxide 28 mmol/L (22.0-30.0); Cholesterol 144 mg/dl (140-200); Estimated Glomerular Filt Rate 42 ml/min (>60); GFR (African American) 51 ML/MIN (>60); Globulin 2.6 g/dL (1.3-3.2); Triglycerides 278 mg/dl (30-150); VLDL Cholesterol 56 mg/dL (0-40)
[2024-08-31 19:26] LABS: Calcium 9.4 mg/dl (8.4-10.2); Chol/HDL Ratio 6.9 (1-3.5); Glucose 180 mg/dl (74-100); HDL Cholesterol 21 mg/dl (40-60)
[2024-08-31 19:45] LABS: Direct LDL Cholesterol 80.45 mg/dL (100-129)
[2024-08-31 20:19] LABS: Vitamin B12 595 pg/mL (239-931)
== END 2024-08-31 23:59 | disposition home or self-care (01) ==
LOC: LAB.DROPOF 09-02 11:50
PROVIDERS: PCP Nurse Practitioner; Visit Provider Nurse Practitioner
DX: E11.9 Type 2 diabetes mellitus without complications (principal); I10 Essential (primary) hypertension; K21.9 Gastro-esophageal reflux disease without esophagitis; I25.10 Atherosclerotic heart disease of native coronary artery without angina pectoris; E78.5 Hyperlipidemia, unspecified; F17.210 Nicotine dependence, cigarettes, uncomplicated; Z79.84 Long term (current) use of oral hypoglycemic drugs
CPT/HCPCS: 80053; 80061; 82607; 83036; 85025

== ENCOUNTER 2025-03-08 16:10 | Outpatient (CLI) | payer MEDICARE, SELFPAY ==
[2025-03-08 21:19] LABS: Albumin Level 4.5 g/dl (3.5-5.0); Chloride 106 mmol/L (98-107); Potassium 4.2 mmoL/L (3.5-5.1); Sodium 143 mmol/L (136-145)
[2025-03-08 21:21] LABS: Blood Urea Nitrogen 30 mg/dl (9-20); Estimated Glomerular Filt Rate 39 ml/min (>60); GFR (African American) 48 ML/MIN (>60)
[2025-03-08 21:22] LABS: Alanine Aminotransferase 27 U/L (12-78); Albumin/Globulin Ratio 1.6 (1.1-1.8); Alkaline Phosphatase 65 U/L (38-126); Anion Gap 15.2 mEq/L (5-15); Aspartate Amino Transferase 25 U/L (17-59); Bilirubin,Total 0.3 mg/dl (0.2-1.3); Calcium 9.4 mg/dl (8.4-10.2); Carbon Dioxide 26 mmol/L (22.0-30.0); Cholesterol 151 mg/dl (140-200); Globulin 2.9 g/dL (1.3-3.2); Glucose 171 mg/dl (74-100); Total Protein,Serum 7.4 g/dl (6.3-8.2); Triglycerides 313 mg/dl (30-150); VLDL Cholesterol 63 mg/dL (0-40)
[2025-03-08 21:23] LABS: HDL Cholesterol 25 mg/dl (40-60)
[2025-03-08 21:33] LABS: Direct LDL Cholesterol 80.52 mg/dL (100-129)
[2025-03-08 23:36] LABS: Hemoglobin A1C 5.8 % (4.0-6.0)
== END 2025-03-08 23:59 | disposition home or self-care (01) ==
LOC: LAB.DROPOF 03-09 09:55
PROVIDERS: PCP Nurse Practitioner; Visit Provider Nurse Practitioner
DX: E78.2 Mixed hyperlipidemia (principal); E11.9 Type 2 diabetes mellitus without complications; I10 Essential (primary) hypertension
CPT/HCPCS: 80053; 80061; 83036

== ENCOUNTER 2025-08-16 10:40 | Outpatient (CLI) | payer MEDICARE, SELFPAY ==
--- OUTSIDE RECORDS SUMMARY | 2025-08-16 10:46 | XMS_ITS | Clinical Summary ---
Author Organization [facility] Address [address] [place] [address] Phone Care Team Providers Care Medical Communication Specialist Name Role Phone Oneil Chandra MD Primary Care Provider [phone] Social History Tobacco Use Types Packs/Day Years Used Date Smoking Tobacco: Never Assessed Sex and Gender Information Value Date Recorded Sex Assigned at Not on file Legal Sex Male 3:29 AM EDT Gender Identity Not on file Sexual Orientation Not on file Plan of Treatment Health Maintenance Due Date Last Done Comments Annual Wellness Exam 1953 Hepatitis C Screening 1966 DTaP/TDaP/Td (1 - Tdap) 1967 Pneumococcal Vaccine 50+ (1 of 1 - PCV) 1998 Zoster (1 of 2) 1998 RSV or 60+ (1 - 1-d ose 75+ series) 2023 COVID-19 Vaccine (1 - 2023-2 5 season) 2025 Influenza Vaccine (#1) 2025 Hepatitis B Vaccine Aged Out No longe r eligible based on patient's age to complete this topic Meningococcal B Vaccine Aged Out No l onger eligible based on patient's age to complete this topic Care Teams Medical Communication Specialist Relationship Specialty Start Date End Date Oneil Chandra MD [address] [place] [address] PCP - General 01/23/10
[2025-08-16 11:03] LABS: Blood Urea Nitrogen 26 mg/dl (9-20); Creatinine,Serum 2.00 mg/dl (0.66-1.25); Estimated Glomerular Filt Rate 33 ml/min (>60); GFR (African American) 40 ML/MIN (>60)
--- NOTE | 2025-08-16 11:30 | CT_ITS ---
FINAL REPORT TECHNIQUE: Thin section axial CT images with coronal reformats were obtained through the neck after the administration of IV contrast. This study was performed with techniques to keep radiation doses as low as reasonably achievable (ALARA). Individualized dose reduction techniques using automated exposure control or adjustment of mA and/or kV according to the patient''s size were employed. 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 Patchy opacification of the ethmoid air cells is noted. There are no air-fluid levels. There is mild asymmetric soft tissue at the left base of tongue which could be related to reported base of tongue neoplasm. This is well seen on images 46-52 of series 3. There are dense vascular calcifications of the carotid bifurcations. Nodule in the inferior parotid gland measuring 11 mm could represent enlarged node, well seen on image 29 of series 601. There are mild changes of centrilobular emphysema. IMPRESSION: Asymmetric soft tissue at the left base of tongue, significance unclear. This could be related to possible neoplasm. PET-CT may be of value. Extensive soft tissue in the left maxillary sinus consistent with chronic sinusitis. 11 mm nodule inferior right parotid gland of uncertain significance. Correlate with physical exam.. Reviewed, Interpreted and Dictated by Martín Hameed MD Transcribed by Barbara Berkowitz Authenticated and [facility]
[2025-08-16] MEDS: IOPAMIDOL-370 (76%);100ML BOTTLE 75 ML IV (12:18)
[2025-08-16] MEDS: SODIUM CHLORIDE 0.9% 10ML SYR (RAD ONLY) 10 ML IV (12:18)
== END 2025-08-16 23:59 | disposition home or self-care (01) ==
LOC: RAD 10:41
PROVIDERS: PCP Nurse Practitioner; Visit Provider Nurse Practitioner
DX: D37.02 Neoplasm of uncertain behavior of tongue (principal); J32.0 Chronic maxillary sinusitis; R93.3 Abnormal findings on diagnostic imaging of other parts of digestive tract; R93.89 Abnormal findings on diagnostic imaging of other specified body structures
CPT/HCPCS: 36415; 70491; 82565; 84520; Q9967